=== PATIENT | male | born 1960 | race Caucasian/White ===

== ENCOUNTER 2017-12-26 04:06 | Inpatient (IN) ==
[2017-12-26 04:26] LABS: ABG Base Excess -7.8 mmol/L (-2.4-2.3); ABG HCO3 16.6 mmhg (22.0-26.0); ABG Oxygen Saturation 95 % (90-100); ABG PCO2 25.9 mmhg (35.0-45.0); ABG PH 7.43 mmol/L (7.35-7.45); ABG PO2 72.3 mmhg (80-100); ABG TCO2 17.4 mmhg (23-27)
[2017-12-26 04:28] LABS: Allen's Test Patient Unable
[2017-12-26 04:34] LABS: Basophils # 0.1 K/mm3 (0-0.2); Basophils % 0.2 % (0.1-2.0); Eosinophils # 0.2 K/mm3 (0.0-0.4); Eosinophils % 1.1 % (0.1-12.0); Hemoglobin 11.3 g/dL (14.1-18.0); Lymphocytes # 1.1 K/mm3 (0.7-4.5); Lymphocytes % 5.2 K/mm3 (10-50); Mean Corpuscular HGB Conc 32.3 g/dL (31.8-35.4); Mean Corpuscular Hemoglobin 30.9 pg (27.0-31.2); Mean Corpuscular Volume 95.8 fl (80-94); Mean Platelet Volume 7.2 fl (7.4-10.4); Monocytes # 0.7 K/mm3 (0.1-1.0); Monocytes % 3.1 % (1.7-9.3); Neutrophils # 19.5 K/mm3 (1.8-7.8); Neutrophils % 90.3 % (37.0-80.0); Platelet Count 384 K/mm3 (142-424); Red Blood Count 3.66 M/mm3 (4.60-6.20); Red Cell Distribution Width 14.5 % (11.5-17.5); White Blood Count 21.6 K/mm3 (4.8-10.8)
--- NOTE | 2017-12-26 04:34 | Emergency Department Note ---
ED Disposition Clinical Impression: Pneumonia Disposition: Admitted As Inpatient Condition on Discharge: Fair - Critical Care Critical Care Time: No Attestation: On 12/26/17, the high probability of a clinically significant, sudden or life threatening deterioration of the following system(s) required my full and direct attention, intervention and personal management. The time I documented below is in addition to time spent performing reported procedures but includes the following listed in this critical care notation. Medical Decision Making - Medical Records Medical records reviewed: Yes: I reviewed the patient's medical records. MR Comment: Discussed case with hospitalist radio station manager (Dr. Oswald). Patient admitted to [facility] for farther management and monitoring. Patient remained stable and minimally symptomactic during his ED care. - Jasvir Inquiry Pt receiving controlled substance: No Jasvir was queried for this patient: No Vital Signs: 12/26/17 04:06 12/26/17 05:06 12/26/17 05:30 Temperature 98.1 F Temperature Source Oral Pulse Rate [Right Radial] 121 H 112 H 114 H Respiratory Rate 20 18 18 Blood Pressure [Right Arm] 146/86 H 138/74 139/70 Blood Pressure Mean [Right Arm] 106 95 93 Blood Pressure Source [Right Arm] Automatic Cuff Automatic Cuff Blood Pressure Position [Right Arm] Supine Supine 02 Sat by Pulse Oximetry 96 98 100 Oxygen Delivery Method Nasal Cannula Nasal Cannula Nasal Cannula Oxygen Flow Rate (LPM) 2 2 2 12/26/17 06:00 12/26/17 07:14 12/26/17 07:20 Temperature Temperature Source Pulse Rate [Right Radial] 110 H 95 H 94 H Respiratory Rate 18 22 Blood Pressure [Right Arm] 142/75 H 139/79 111/71 Blood Pressure Mean [Right Arm] 97 99 84 Blood Pressure Source [Right Arm] Automatic Cuff Automatic Cuff Blood Pressure Position [Right Arm] Supine Supine 02 Sat by Pulse Oximetry 99 100 97 Oxygen Delivery Method Nasal Cannula Nasal Cannula Oxygen Flow Rate (LPM) 2 2 - Lab Data Lab results reviewed: Yes: I reviewed the patient's lab results. Lab Results 12/26/17 04:12: WBC 21.6 H*, RBC 3.66 L, Hgb 11.3 L, Hct 35.0 L, MCV 95.8 H, MCH 30.9, MCHC 32.3, RDW 14.5, Plt Count 384, MPV 7.2 L, Neut % (Auto) 90.3 H, Lymph % (Auto) 5.2 L, [place] % (Auto) 3.1, Eos % (Auto) 1.1, Baso % (Auto) 0.2, Neut # (Auto) 19.5 H, Lymph # (Auto) 1.1, [place] # (Auto) 0.7, Eos # (Auto) 0.2, Baso # (Auto) 0.1, Total Counted 100, Neutrophils % (Manual) 95 H, Lymphocytes % (Manual) 5 L, Platelet Estimate Normal, Anisocytosis 1+ 12/26/17 04:12: Sodium 131 L, Potassium 4.8, Chloride 96 L, Carbon Dioxide 22, Anion Gap 17.8 H, BUN 20 H, Creatinine 2.13 H, Estimated Creat Clear 65, Estimated GFR 32 L, Est GFR ( Amer) 39 L, Glucose 163 H, Calcium 8.7, Total Bilirubin 0.4, AST 18, ALT 12, Alkaline Phosphatase 76, Troponin I 0.30 H, Total Protein 7.2, Albumin 2.7 L, Globulin 4.5 H, Albumin/Globulin Ratio 0.6 L 12/26/17 04:12: Lactate 1.7 12/26/17 04:17: Specimen Source Right radial, O2 % 30% nc, ABG pH 7.43, ABG pCO2 25.9 L, ABG pO2 72.3 L, ABG HCO3 16.6 L, ABG Total CO2 17.4 L, ABG O2 Saturation 95, ABG Base Excess -7.8 L, Enrique Test Patient unable 12/26/17 04:17: B-Natriuretic Peptide 60 Result diagrams: 12/26/17 04:12 12/26/17 04:12 Orders (Tests/Meds): ED MEDICATIONS Generic Name Dose Route Start Last Admin Trade Name Freq PRN Reason Stop Dose Admin Albuterol Sulfate puffs 12/26/17 07:23 Proventil-Hfa 90mcg/Puff Inhaler IH 01/25/18 07:22 Q6HP PRN copd Aspirin 81 mg 12/26/17 09:00 Aspirin 81mg Enteric Coated Tablet PO 01/25/18 08:59 DAILY TEJINDER Divalproex Sodium 250 mg 12/26/17 09:00 Depakote Sprinkle 125mg Capsule PO 01/25/18 08:59 BID TEJINDER Ferrous Sulfate 325 mg 12/26/17 09:00 Ferrous Sulfate 325mg Tablet PO 01/25/18 08:59 TID TEJINDER Folic Acid 1 mg 12/26/17 09:00 Folic Acid 1mg Tablet PO 01/25/18 08:59 DAILY TEJINDER Furosemide 40 mg 12/26/17 09:00 Lasix 40mg Tablet PO 01/25/18 08:59 DAILY [facility] Gabapentin 300 mg 12/26/17 09:00 Neurontin 300mg Capsule PO 01/25/18 08:59 TID TEJINDER Cefepime HCl 2 gm/ Sodium 100 mls @ 200 mls/hr 12/26/17 05:15 12/26/17 05:38 Chloride IV 01/09/18 05:14 200 mls/hr Q8H TEJINDER Administration Protocol Vancomycin HCl 1,000 mg/ 250 mls @ 125 mls/hr 12/26/17 07:15 Sodium Chloride IV 01/09/18 07:14 Q24H TEJINDER Levofloxacin/Dextrose 500 mg in 100 mls @ 100 mls/hr 12/26/17 07:15 12/26/17 07:21 Levaquin 500mg/100ml Premix IV 01/09/18 07:14 100 mls/hr Q24H TEJINDER Administration Protocol Meclizine HCl 12.5 mg 12/26/17 07:23 Antivert 12.5mg Tablet PO 01/25/18 07:22 Q8HP PRN dizzy Non-Formulary Medication 15 mg 12/26/17 09:00 Buspirone Hcl [Buspirone Hcl] PO 01/25/18 08:59 DAILY TEJINDER Non-Formulary Medication 40 mg 12/26/17 09:00 Lisinopril [Lisinopril 40mg Tablet] PO 01/25/18 08:59 DAILY TEJINDER Non-Formulary Medication 10 mg 12/26/17 09:00 Loratadine [Claritin] PO 01/25/18 08:59 DAILY TEJINDER Non-Formulary Medication 250 mg 12/26/17 09:00 Naproxen [Naproxen] PO 01/25/18 08:59 BID TEJINDER Non-Formulary Medication 40 mg 12/26/17 09:00 Pantoprazole Sodium [Pantoprazole 20mg Tab] PO 01/25/18 08:59 DAILY TEJINDER Non-Formulary Medication 300 mg 12/26/17 09:00 Quetiapine Fumarate [Quetiapine Fumarate] PO 01/25/18 08:59 DAILY TEJINDER Non-Formulary Medication 40 mg 12/26/17 09:00 Simvastatin [Simvastatin] PO 01/25/18 08:59 DAILY TEJINDER Non-Formulary Medication 1 puff 12/26/17 09:00 Budesonide/Formoterol Fumarate [Symbicort 80-4.5 Mcg Inhaler] INHALATION 01/25/18 08:59 BID TEJINDER Potassium Chloride 20 meq 12/26/17 09:00 Micro-K 10meq Capsule PO 01/25/18 08:59 DAILY TEJINDER Sertraline HCl 100 mg 12/26/17 09:00 Zoloft 100mg Tablet PO 01/25/18 08:59 DAILY TEJINDER Sodium Chloride 3 ml 12/26/17 04:17 Sodium Chloride 3% 15ml Neb IH 01/25/18 04:16 ONCE PRN INDUCE SPUTUM COLLECTION Discontinued Medications Generic Name Dose Route Start Last Admin Trade Name Freq PRN Reason Stop Dose Admin Sodium Chloride 500 mls @ 999 mls/hr 12/26/17 05:15 12/26/17 05:38 Sod Chlor 0.9% 1000ml Bag IV 12/26/17 05:45 999 mls/hr .Q31M TEJINDER Administration Methylprednisolone Sodium Succinate 125 mg 12/26/17 04:18 12/26/17 04:19 Solu-Medrol 125mg/2ml Vial IV 12/26/17 04:19 125 mg ONCE ONE Administration Miscellaneous 1 unit 12/26/17 07:23 Aerochamber/Optihaler MC 12/26/17 07:24 ONCE ONE ORDERS Category Date Time Status CT chest wo con Stat Cat Scan 12/26/17 05:57 Taken XR chest portable Stat Exams 12/26/17 04:17 Taken Troponin I Stat Lab 12/26/17 07:05 Ordered Blood Culture Stat Micro 12/26/17 04:17 Ordered Sputum Culture & Gram Stain Stat Micro 12/26/17 04:17 Ordered - ECG Data Tracing #1 I reviewed this ECG and interpreted as documented below: Normal Sinus Rhythm: Yes Arrhythmias present: sinus tach Resp/SOB HPI - General Chief Complaint: Weakness Stated Complaint: shortness of breath Time Seen by Provider: 12/26/17 04:08 Mode of Arrival: EMS Limitations: Physical Limitations Description of Symptoms (Recalled from ER Triage Doc. by RN): generalized weakness, shortness of breath, fall this pm when he was trying to stand up patient states he "just went down." - History of Present Illness Comes to the ED with complain of worsening dyspnea and wheezing. Denies fever, chills, chest pain, nausea, vomiting, diaphoresis. MD Complaint: shortness of breath, cough Onset (ago): day(s) Severity: moderate Consistency/Duration: constant Relieving factors: nothing Exacerbating factors: nothing Known history of: COPD Associated symptoms: denies other symptoms - Related Data Home Medications Medication Instructions Recorded Confirmed Albuterol Sulfate [Albuterol HFA 1 puff INHALATION Q6HP PRN 12/26/17 12/26/17 Inhaler] Aspirin [Aspir-Low] 81 mg PO DAILY 12/26/17 12/26/17 Budesonide/Formoterol Fumarate 1 puff INHALATION BID 12/26/17 12/26/17 [Symbicort 80-4.5 Mcg Inhaler] Buspirone HCl 15 mg PO DAILY 12/26/17 12/26/17 Divalproex Sodium 250 mg PO BID 12/26/17 12/26/17 Ferrous Sulfate 325 mg PO TID 12/26/17 12/26/17 Fluticasone Propionate [Flonase 1 - 2 spray IN DAILY 12/26/17 12/26/17 50mcg nasal spray 16gm] Folic Acid [Folic Acid 1mg tablet] 1 mg PO DAILY 12/26/17 12/26/17 Furosemide [Furosemide 40MG tAB] 40 mg PO DAILY 12/26/17 12/26/17 Gabapentin [Gabapentin 300mg Cap] 300 mg PO TID 12/26/17 12/26/17 Lisinopril [Lisinopril 40mg Tablet] 40 mg PO DAILY 12/26/17 12/26/17 Loratadine [Claritin] 10 mg PO DAILY 12/26/17 12/26/17 Meclizine HCl [Meclizine 12.5mg 12.5 mg PO Q8HP PRN 12/26/17 12/26/17 Tab] Naproxen 250 mg PO BID 12/26/17 12/26/17 Pantoprazole Sodium [Pantoprazole 40 mg PO DAILY 12/26/17 12/26/17 20mg Tab] Potassium Chloride [Micro-K 10mEq 20 meq PO DAILY 12/26/17 12/26/17 cap] Quetiapine Fumarate 300 mg PO DAILY 12/26/17 12/26/17 Sertraline HCl [Zoloft 100mg 100 mg PO DAILY 12/26/17 12/26/17 tablet] Simvastatin 40 mg PO DAILY 12/26/17 12/26/17 Allergies Allergy/AdvReac Type Severity Reaction Status Date / Time Penicillins [PENICILLINS] Allergy Unknown Verified 12/26/17 04:12 [facility] History I have reviewed the patient's past medical history: Yes Medical History: Reports:: Diabetes Mellitus Type 2, MRSA Denies:: Cancer, Diabetes Mellitus Type 1 Amputation: No - Social History Smoking Status: Current every day smoker Alcohol Intake: never - Psychiatric History Expresses thoughts of harming self/others: None Suicide Plan Description: No Plan ROS Obtained: Yes All systems reviewed & no additional complaints Physical Exam - General General appearance: alert, in no apparent distress - Head Head exam: atraumatic, normocephalic, normal inspection - Eye Eye exam: Present: normal appearance, PERRL, EOMI - ENT ENT exam: Present: normal exam, normal oropharynx, mucous membranes moist, TM's normal bilaterally, normal external ear exam - Neck Neck exam: Present: normal inspection, full ROM, trachea midline. Absent: m eningismus, lymphadenopathy - Chest Chest inspection: Present: normal inspection, symmetric chest wall rise. Absent: tenderness - Respiratory Respiratory exam: Present: wheezes. Absent: respiratory distress, accessory mu scle use - Cardiovascular Cardiovascular exam: Present: regular rate, normal rhythm. Absent: JVD - Abdominal Exam Abdominal exam: Present: soft, normal bowel sounds. Absent: distention, tenderness, guarding - Extremities Exam Extremities exam: Present: normal inspection, full ROM, normal capillary refill. Absent: calf tenderness - Back Exam Back exam: Present: normal inspection. Absent: tenderness - Neurological Exam Neurological exam: Present: alert, oriented X3 - Psychiatric Psychiatric exam: Present: normal affect, normal mood - Skin Skin exam: Present: warm, dry, intact, normal color - Lymphatic Lymphatic Findings: no adenopathy
[2017-12-26 04:47] LABS: Potassium 4.8 mmoL/L (3.5-5.1)
[2017-12-26 04:51] LABS: Anion Gap 17.8 mEq/L (5-15); Bilirubin,Total 0.4 mg/dL (0.2-1.0); Calcium 8.7 mg/dL (8.5-10.1)
[2017-12-26 04:52] LABS: Albumin Level 2.7 gm/dL (3.4-5.0); Albumin/Globulin Ratio 0.6 (1.1-1.8); Globulin 4.5 gm/dl (1.3-3.2); Total Protein,Serum 7.2 gm/dL (6.4-8.2)
[2017-12-26 05:52] LABS: Anisocytosis 1+; Lymphocytes % 5 % (10-50); Neutrophils % 95 % (42-76); Total Cells Counted 100
--- NOTE | 2017-12-26 08:00 | History & Physical Report ---
*Admission Date: 12/26/17 *Chief complaint: Cough with shortness of breath *History of present illness: 57-year-old male with COPD, diabetes presented to the emergency department via EMS with 2 days of cough with chills and brown sputum production along with shortness of breath. Patient had significant wheezing in route and was given aerosols. He was tachycardic by the time he presented to the emergency department. Workup continued and patient was diagnosed with multi lobar pneumonia. He has been admitted admitted on broad-spectrum antibiotics, aerosols and intravenous steroids. At the time of interview patient has been in the facility now for about 3 hours and tells me he is starting to feel better. He denies fevers at home. He lives in [place]. He initially denied previous hospitalizations for respiratory illnesses but then later tells me he has been admitted to hospital for pneumonia before. [facility] History I have reviewed the patient's past medical history: Yes Medical History: Reports:: Chronic Obstructive Pulmonary Disease (COPD), Diabetes Mellitus Type 2, MRSA Denies:: Cancer, Diabetes Mellitus Type 1 Amputation: No - *Social History Smoking Status: Current every day smoker Alcohol Intake: never - Psychiatric History Expresses thoughts of harming self/others: None Suicide Plan Description: No Plan Review of Systems - Review of Systems Review of systems:: pertinent systems reviewed and negative unless documented below - Constitutional Reports body ache(s), Reports chills, Reports excessive sweating - *Cardiovascular Denies chest pain, Denies chest pain at rest - *Respiratory Reports change in phlegm color, Reports chest congestion, Reports cough, Reports shortness of breath, Reports shortness of breath with activity, Reports excessive phlegm production - *Gastrointestinal Denies abdominal pain, Denies belching Meds Home Medications Medication Instructions Recorded Confirmed Type Albuterol Sulfate [Albuterol HFA 1 puff INHALATION Q6HP PRN 12/26/17 12/26/17 History Inhaler] Aspirin [Aspir-Low] 81 mg PO DAILY 12/26/17 12/26/17 History Budesonide/Formoterol Fumarate 1 puff INHALATION BID 12/26/17 12/26/17 History [Symbicort 80-4.5 Mcg Inhaler] Buspirone HCl 15 mg PO DAILY 12/26/17 12/26/17 History Divalproex Sodium 250 mg PO BID 12/26/17 12/26/17 History Ferrous Sulfate 325 mg PO TID 12/26/17 12/26/17 History Fluticasone Propionate [Flonase 1 - 2 spray IN DAILY 12/26/17 12/26/17 History 50mcg nasal spray 16gm] Folic Acid [Folic Acid 1mg tablet] 1 mg PO DAILY 12/26/17 12/26/17 History Furosemide [Furosemide 40MG tAB] 40 mg PO DAILY 12/26/17 12/26/17 History Gabapentin [Gabapentin 300mg Cap] 300 mg PO TID 12/26/17 12/26/17 History Lisinopril [Lisinopril 40mg Tablet] 40 mg PO DAILY 12/26/17 12/26/17 History Loratadine [Claritin] 10 mg PO DAILY 12/26/17 12/26/17 History Meclizine HCl [Meclizine 12.5mg 12.5 mg PO Q8HP PRN 12/26/17 12/26/17 History Tab] Naproxen 250 mg PO BID 12/26/17 12/26/17 History Pantoprazole Sodium [Pantoprazole 40 mg PO DAILY 12/26/17 12/26/17 History 20mg Tab] Potassium Chloride [Micro-K 10mEq 20 meq PO DAILY 12/26/17 12/26/17 History cap] Quetiapine Fumarate 300 mg PO DAILY 12/26/17 12/26/17 History Sertraline HCl [Zoloft 100mg 100 mg PO DAILY 12/26/17 12/26/17 History tablet] Simvastatin 40 mg PO DAILY 12/26/17 12/26/17 History Allergies Allergy/AdvReac Type Severity Reaction Status Date / Time Penicillins [PENICILLINS] Allergy Unknown Verified 12/26/17 04:12 Exam Vital signs and Labs for Last 24 Hours: Temp Pulse Resp BP Pulse Ox 98.1 F 94 H 22 111/71 97 12/26/17 04:06 12/26/17 07:20 12/26/17 07:20 12/26/17 07:20 12/26/17 07:20 Laboratory Results - last 24 hr 12/26/17 04:12: WBC 21.6 H*, RBC 3.66 L, Hgb 11.3 L, Hct 35.0 L, MCV 95.8 H, MCH 30.9, MCHC 32.3, RDW 14.5, Plt Count 384, MPV 7.2 L, Neut % (Auto) 90.3 H, Lymph % (Auto) 5.2 L, [place] % (Auto) 3.1, Eos % (Auto) 1.1, Baso % (Auto) 0.2, Neut # (Auto) 19.5 H, Lymph # (Auto) 1.1, [place] # (Auto) 0.7, Eos # (Auto) 0.2, Baso # (Auto) 0.1, Total Counted 100, Neutrophils % (Manual) 95 H, Lymphocytes % (Manual) 5 L, Platelet Estimate Normal, Anisocytosis 1+ 12/26/17 04:12: Sodium 131 L, Potassium 4.8, Chloride 96 L, Carbon Dioxide 22, Anion Gap 17.8 H, BUN 20 H, Creatinine 2.13 H, Estimated Creat Clear 65, Estimated GFR 32 L, Est GFR ( Amer) 39 L, Glucose 163 H, Calcium 8.7, Total Bilirubin 0.4, AST 18, ALT 12, Alkaline Phosphatase 76, Troponin I 0.30 H, Total Protein 7.2, Albumin 2.7 L, Globulin 4.5 H, Albumin/Globulin Ratio 0.6 L 12/26/17 04:12: Lactate 1.7 12/26/17 04:17: Specimen Source Right radial, O2 % 30% nc, ABG pH 7.43, ABG pCO2 25.9 L, ABG pO2 72.3 L, ABG HCO3 16.6 L, ABG Total CO2 17.4 L, ABG O2 Saturation 95, ABG Base Excess -7.8 L, Enrique Test Patient unable 12/26/17 04:17: B-Natriuretic Peptide 60 I & O for Last 24 hours: Intake & Output 12/23/17 12/24/17 12/25/17 12/26/17 11:59 11:59 11:59 11:59 Weight 270 lb Narrative: Patient is diaphoretic and mildly tachypneic. Pupils are reactive to light. Oropharynx moist and clear. Neck is without lymphadenopathy. Lungs have diffus e expiratory wheezes as well as bilateral rhonchi. Heart rate is tachycardic. Abdomen is obese and soft. Patient has active range of motion in all extremities Assessment and Plan (1) Pneumonia Current visit: Yes Status: Acute Category: Medical Code(s): J18.9 - Pn eumonia, unspecified organism (2) COPD exacerbation Current visit: Yes Status: Acute Category: Medical Code(s): J44.1 - Chronic obstructive pulmonary disease with (acute) exacerbation (3) Morbid obesity Current visit: Yes Status: Acute Category: Medical Code(s): E66.01 - Morbid (severe) obesity due to excess calories (4) Diabetes mellitus Current visit: Yes Status: Acute Category: Medical Code(s): E11.9 - Type 2 diabetes mellitus without complications (5) History of MRSA infection Current visit: Yes Status: Acute Category: Medical Code(s): Z86.14 - Personal history of Methicillin resistant Staphylococcus aureus infection (6) Elevated troponin Current visit: Yes Status: Acute Category: Medical Code(s): R74.8 - Abnormal levels of other serum enzymes - Assessment and plan all Dx Assessment and Plan for all problems:: 1. Broad-spectrum coverage (Levaquin and cefepime) including coverage for MRSA with vancomycin IV Medrol and aerosols for COPD exacerbation 2. Check echocardiogram and repeat troponin later today.
--- NOTE | 2017-12-26 09:51 | Pharmacy Consult Notes ---
- Pharmacy Consult Date: 12/26/17 Time: 09:50 Referring provider: DR. PETERSEN Reason for Consult:: VANCOMYCIN DOSING Allergies and ADEs:: Allergies Allergy/AdvReac Type Severity Reaction Status Date / Time Penicillins [PENICILLINS] Allergy Unknown Verified 12/26/17 04:12 Home Medications:: Home Medications Medication Instructions Recorded Confirmed Type Albuterol Sulfate [Albuterol HFA 1 puff INHALATION Q6HP PRN 12/26/17 12/26/17 History Inhaler] Aspirin [Aspir-Low] 81 mg PO DAILY 12/26/17 12/26/17 History Budesonide/Formoterol Fumarate 1 puff INHALATION BID 12/26/17 12/26/17 History [Symbicort 80-4.5 Mcg Inhaler] Buspirone HCl 15 mg PO DAILY 12/26/17 12/26/17 History Divalproex Sodium 250 mg PO BID 12/26/17 12/26/17 History Ferrous Sulfate 325 mg PO TID 12/26/17 12/26/17 History Fluticasone Propionate [Flonase 1 - 2 spray IN DAILY 12/26/17 12/26/17 History 50mcg nasal spray 16gm] Folic Acid [Folic Acid 1mg tablet] 1 mg PO DAILY 12/26/17 12/26/17 History Furosemide [Furosemide 40MG tAB] 40 mg PO DAILY 12/26/17 12/26/17 History Gabapentin [Gabapentin 300mg Cap] 300 mg PO TID 12/26/17 12/26/17 History Lisinopril [Lisinopril 40mg Tablet] 40 mg PO DAILY 12/26/17 12/26/17 History Loratadine [Claritin] 10 mg PO DAILY 12/26/17 12/26/17 History Meclizine HCl [Meclizine 12.5mg 12.5 mg PO Q8HP PRN 12/26/17 12/26/17 History Tab] Montelukast Sodium [Montelukast 10 mg PO HS 12/26/17 12/26/17 History 10mg Tab] Naproxen 250 mg PO BID 12/26/17 12/26/17 History Nitroglycerin [Nitrostat 0.4mg SL 0.4 mg SL [id number] PRN 12/26/17 12/26/17 History Tablet] Pantoprazole Sodium [Pantoprazole 20 mg PO DAILY 12/26/17 12/26/17 History 20mg Tab] Potassium Chloride [Micro-K 10mEq 20 meq PO DAILY 12/26/17 12/26/17 History cap] Quetiapine Fumarate 300 mg PO HS 12/26/17 12/26/17 History Sertraline HCl [Zoloft 100mg 100 mg PO DAILY 12/26/17 12/26/17 History tablet] Simvastatin 40 mg PO HS 12/26/17 12/26/17 History Height: 1.83 m Weight: 129.954 kg Laboratory Results:: Laboratory Results - last 24 hr 12/26/17 04:12: WBC 21.6 H*, RBC 3.66 L, Hgb 11.3 L, Hct 35.0 L, MCV 95.8 H, MCH 30.9, MCHC 32.3, RDW 14.5, Plt Count 384, MPV 7.2 L, Neut % (Auto) 90.3 H, Lymph % (Auto) 5.2 L, [place] % (Auto) 3.1, Eos % (Auto) 1.1, Baso % (Auto) 0.2, Neut # (Auto) 19.5 H, Lymph # (Auto) 1.1, [place] # (Auto) 0.7, Eos # (Auto) 0.2, Baso # (Auto) 0.1, Total Counted 100, Neutrophils % (Manual) 95 H, Lymphocytes % (Manual) 5 L, Platelet Estimate Normal, Anisocytosis 1+ 12/26/17 04:12: Sodium 131 L, Potassium 4.8, Chloride 96 L, Carbon Dioxide 22, Anion Gap 17.8 H, BUN 20 H, Creatinine 2.13 H, Estimated Creat Clear 65, Estimated GFR 32 L, Est GFR ( Amer) 39 L, Glucose 163 H, Calcium 8.7, Total Bilirubin 0.4, AST 18, ALT 12, Alkaline Phosphatase 76, Troponin I 0.30 H, Total Protein 7.2, Albumin 2.7 L, Globulin 4.5 H, Albumin/Globulin Ratio 0.6 L 12/26/17 04:12: Lactate 1.7 12/26/17 04:17: Specimen Source Right radial, O2 % 30% nc, ABG pH 7.43, ABG pCO2 25.9 L, ABG pO2 72.3 L, ABG HCO3 16.6 L, ABG Total CO2 17.4 L, ABG O2 Saturation 95, ABG Base Excess -7.8 L, Enrique Test Patient unable 12/26/17 04:17: B-Natriuretic Peptide 60 12/26/17 06:20: Troponin I 0.26 H Medical History: Reports:: Chronic Obstructive Pulmonary Disease (COPD), Diabetes Mellitus Type 2, Hypertension, MRSA Denies:: Cancer, Diabetes Mellitus Type 1 Assessment and Plan (1) Pneumonia Current visit: Yes Status: Acute Category: Medical Code(s): J18.9 - Pneumonia, unspecified organism (2) COPD exacerbation Current visit: Yes Status: Acute Category: Medical Code(s): J44.1 - Chronic obstructive pulmonary disease with (acute) exacerbation (3) Morbid obesity Current visit: Yes Status: Acute Category: Medical Code(s): E66.01 - Morbid (severe) obesity due to excess calories (4) Diabetes mellitus Current visit: Yes Status: Acute Category: Medical Code(s): E11.9 - Type 2 diabetes mellitus without complications (5) History of MRSA infection Current visit: Yes Status: Acute Category: Medical Code(s): Z86.14 - Personal history of Methicillin resistant Staphylococcus aureus infection (6) Elevated troponin Current visit: Yes Status: Acute Category: Medical Code(s): R74.8 - Abnormal levels of other serum enzymes - Assessment and plan all Dx Assessment and Plan for all problems:: BASED ON PATIENT'S FACTORS, RECOMMEND STARTING WITH VANCOMYCIN 2250 MG Q24H AT THIS TIME. WILL WATCH CAUTIOUSLY DUE TO PATIENT'S RENAL FUNCTION. WILL OBTAIN TROUGH LEVEL PRIOR TO 3RD DOSE DUE TO THIS. PHARMACY WILL FOLLOW DAILY AND ADJUST APPROPRIATE. RAÚL GRANT, MIAHD
--- NOTE | 2017-12-26 10:21 | Pharmacy Consult Notes ---
[facility] Pharmacy VTE Monitoring - Patient Demographics Admission date: 12/26/17 Report Date: 12/26/17 Time: 10:21 Allergies/Adverse Reactions: Patient Allergies Penicillins [PENICILLINS] Allergy (Unknown, Verified 12/26/17 04:12) Height: 1.83 m Weight: 129.954 kg Patient Problems: Current Active Problems Pneumonia (Acute) COPD exacerbation (Acute) Morbid obesity (Acute) Diabetes mellitus (Acute) History of MRSA infection (Acute) Elevated troponin (Acute) - VTE Risk Labs: VTE Related Lab Results Hgb 11.3 g/dL (14.1-18.0) L 12/26/17 04:12 Hct 35.0 % (42.0-52.0) L 12/26/17 04:12 Plt Count 384 K/mm3 (142-424) 12/26/17 04:12 BUN 20 mg/dL (7-18) H 12/26/17 04:12 Creatinine 2.13 mg/dL (0.70-1.30) H 12/26/17 04:12 Estimated Creat Clear 65 mL/min (0-300) 12/26/17 04:12 Was VTE Risk Assessment Performed: Yes VTE Score: 4 VTE Risk Level: Low Risk Clinical Trial Participant: No - Prophylaxis VTE Prophylaxis Ordered?: Yes Types of VTE Prophylaxis: TEDS Knee High
--- NOTE | 2017-12-26 13:15 | Cardiology Report ---
PROCEDURE: 2-D M-mode and color Doppler study INDICATIONS FOR THE TEST: Chest pain COPD Heart Murmur Tobacco Smoking Palpitations Fatigue Syncope Edema Hypertension Diabetes Mellitus Rheumatic Fever SOB PATRICIO Obesity Hyperlipidemia Family History HD Additional History PATIENT INFORMATION HEIGHT: 71 WEIGHT:270 GENDER: Male B/P:111/71 2-D/M-MODE INTERPRETATION: 2-D MEASUREMENTS OBSERVED VALUES IN CMS Right Ventricular Dimension (RVDd) 2.5 Interventricular Septum (Thickness)(IVsd) 1.0 Left Ventricular Internal Dimensions(LVIDd) 5.1 Left Ventricular Posterior Wall (Thickness)(LVPWd) 1.0 Aortic Root 3.1 Aortic Cusp Separation 2.1 Left Atrial Dimensions (LAD) 4.4 2D 1. Left atrium is mildly enlarged, left ventricle is normal size, mild concentric left ventricular hypertrophy, visually estimated ejection fraction of 55% with no regional wall motion abnormality. 2. The right atrium and right ventricle are normal size and contractility. 3. The aortic valve is minimally thickened and fibrosed. 4. The mitral and tricuspid valve are grossly normal. 5. Pulmonic valve is poorly visualized. 6. No significant pericardial effusion noted. DOPPLER INTERROGATION: Doppler interrogation of the aortic, mitral and tricuspid valvular presence of mild mitral and tricuspid regurgitation, tricuspid regurgitation jet velocity is inadequate for calculation of the right ventricular systolic pressure, Doppler evidence of impaired LV relaxation seen, tissue Doppler is suboptimal for calculation of left atrial pressure. CONCLUSION: 1. Mildly enlarged left atrium, normal left ventricular size, mild concentric left ventricular hypertrophy, visually estimated ejection fraction of 55% with no regional wall motion abnormality. Doppler evidence of impaired LV relaxation seen, tissue Doppler is suboptimal for calculation of the left atrial pressure. 2. Mild mitral and tricuspid regurgitation 3. No significant pericardial effusion noted.
[2017-12-27 07:15] LABS: Basophils % 0.1 % (0.1-2.0); Hematocrit 35.2 % (42.0-52.0); Hemoglobin 11.4 g/dL (14.1-18.0); Lymphocytes # 0.9 K/mm3 (0.7-4.5); Lymphocytes % 2.5 K/mm3 (10-50); Mean Corpuscular HGB Conc 32.5 g/dL (31.8-35.4); Mean Corpuscular Hemoglobin 31.5 pg (27.0-31.2); Mean Corpuscular Volume 96.9 fl (80-94); Mean Platelet Volume 7.4 fl (7.4-10.4); Monocytes # 0.9 K/mm3 (0.1-1.0); Monocytes % 2.4 % (1.7-9.3); Neutrophils # 34.2 K/mm3 (1.8-7.8); Platelet Count 420 K/mm3 (142-424); Red Blood Count 3.63 M/mm3 (4.60-6.20); Red Cell Distribution Width 14.4 % (11.5-17.5)
[2017-12-27 07:22] LABS: Anion Gap 16.8 mEq/L (5-15); Calcium 8.6 mg/dL (8.5-10.1); Potassium 4.8 mmoL/L (3.5-5.1)
[2017-12-27 07:50] LABS: Anisocytosis 1+; Lymphocytes % 1 % (10-50); Neutrophils % 99 % (42-76); Total Cells Counted 100
--- NOTE | 2017-12-27 07:52 | Progress Note ---
Internal Medicine - PN: Subj *Date: 12/27/17 *Time: 07:51 Interval history: Patient slept well overnight, no concerns from nursing staff. This morning patient is lying in bed comfortably sleeping. Does not really wish to arouse and talk with me this morning. Wearing oxygen. Exam Vital signs and Labs for Last 24 Hours: Temp Pulse Resp BP Pulse Ox 97.5 F L 74 22 146/64 H 96 12/27/17 07:49 12/27/17 07:49 12/27/17 07:49 12/27/17 07:49 12/27/17 07:49 Laboratory Results - last 24 hr 12/26/17 06:20: Troponin I 0.26 H 12/27/17 06:06: POC Glucose 172 H 12/27/17 06:25: WBC 36.0 H* D, RBC 3.63 L, Hgb 11.4 L, Hct 35.2 L, MCV 96.9 H, MCH 31.5 H, MCHC 32.5, RDW 14.4, Plt Count 420, MPV 7.4, Neut % (Auto) 95.0 H, Lymph % (Auto) 2.5 L, [place] % (Auto) 2.4, Eos % (Auto) 0.0 L, Baso % (Auto) 0.1, Neut # (Auto) 34.2 H, Lymph # (Auto) 0.9, [place] # (Auto) 0.9, Eos # (Auto) 0.0, Baso # (Auto) 0.0, Total Counted 100, Neutrophils % (Manual) 99 H, Lymphocytes % (Manual) 1 L, Platelet Estimate Normal, Anisocytosis 1+ 12/27/17 06:25: Sodium 131 L, Potassium 4.8, Chloride 100, Carbon Dioxide 19 L, Anion Gap 16.8 H, BUN 36 H D, Creatinine 1.99 H, Estimated Creat Clear 74, Estimated GFR 35 L, Est GFR ( Amer) 42 L, Glucose 172 H, Calcium 8.6 12/27/17 06:25: Hemoglobin A1c 6.8 I & O for Last 24 hours: Intake & Output 12/24/17 12/25/17 12/26/17 12/27/17 11:59 11:59 11:59 11:59 Intake Total 1320 / 1320 Output Total 1000 / 1000 Balance 320 / 320 Weight 286 lb 8 oz Narrative: Patient is obese, disheveled, appears older than his stated age. No extra work of breathing noted. Appears comfortable with no tachypnea, no cyanosis on 2 L nasal cannula. Lungs have some rhonchi in all lung patel, no significant crackles or evidence of effusions on physical exam. Heart rate regular. Distal perfusion is good. Oropharynx moist. No JVD but difficult exam. Patient is able to move all of his extremities. Abdomen soft. Assessment and Plan (1) Pneumonia Current visit: Yes Status: Acute Category: Medical Code(s): J18.9 - Pneumonia, unspecified organism Agree with broad-spectrum antibiotics and steroids given his diffuse alveolar infiltrates and COPD exacerbation. Check viral PCR testing. Follow labs closely. Patient's clinical picture is encouraging given his abnormal x-ray. (2) COPD exacerbation Current visit: Yes Status: Acute Category: Medical Code(s): J44.1 - Chronic obstructive pulmonary disease with (acute) exacerbation (3) Morbid obesity Current visit: Yes Status: Acute Category: Medical Code(s): E66.01 - Morbid (severe) obesity due to excess calories (4) Diabetes mellitus Current visit: Yes Status: Acute Category: Medical Code(s): E11.9 - Type 2 diabetes mellitus without complications (5) History of MRSA infection Current visit: Yes Status: Acute Category: Medical Code(s): Z86.14 - Personal history of Methicillin resistant Staphylococcus aureus infection (6) Elevated troponin Current visit: Yes Status: Acute Category: Medical Code(s): R74.8 - Abnormal levels of other serum enzymes
[2017-12-27 08:24] LABS: Coronavirus 229E Not Detected (NotDetected); Coronavirus NL63 Not Detected (NotDetected); Coronavirus OC43 Not Detected (NotDetected); Coronovirus HKU1,PCR Not Detected (NotDetected)
[2017-12-28 06:45] LABS: Hematocrit 33.1 % (42.0-52.0); Hemoglobin 10.8 g/dL (14.1-18.0); Lymphocytes # 0.9 K/mm3 (0.7-4.5); Lymphocytes % 3.4 K/mm3 (10-50); Mean Corpuscular HGB Conc 32.6 g/dL (31.8-35.4); Mean Corpuscular Hemoglobin 31.2 pg (27.0-31.2); Mean Corpuscular Volume 95.9 fl (80-94); Mean Platelet Volume 7.3 fl (7.4-10.4); Monocytes # 0.7 K/mm3 (0.1-1.0); Monocytes % 2.8 % (1.7-9.3); Neutrophils # 24.7 K/mm3 (1.8-7.8); Neutrophils % 93.7 % (37.0-80.0); Platelet Count 412 K/mm3 (142-424); Red Blood Count 3.45 M/mm3 (4.60-6.20); Red Cell Distribution Width 14.3 % (11.5-17.5)
[2017-12-28 06:48] LABS: White Blood Count 26.4 K/mm3 (4.8-10.8)
[2017-12-28 07:05] LABS: Lymphocytes % 6 % (10-50); Monocytes % 3 % (2-9); Neutrophils % 82 % (42-76); Total Cells Counted 100
[2017-12-28 07:06] LABS: RBC Morphology Normal
[2017-12-28 07:09] LABS: Albumin Level 2.3 gm/dL (3.4-5.0); Albumin/Globulin Ratio 0.5 (1.1-1.8); Anion Gap 17.1 mEq/L (5-15); Bilirubin,Total 0.3 mg/dL (0.2-1.0); Calcium 8.6 mg/dL (8.5-10.1); Globulin 4.3 gm/dl (1.3-3.2); Potassium 5.1 mmoL/L (3.5-5.1); Total Protein,Serum 6.6 gm/dL (6.4-8.2)
--- NOTE | 2017-12-28 08:45 | Discharge Summary ---
General - General Admission date:: 12/26/17 Discharge date: 12/28/17 HPI HPI: 57-year-old male with COPD, diabetes presented to the emergency department via EMS with 2 days of cough with chills and brown sputum production along with shortness of breath. Patient had significant wheezing in route and was given aerosols. He was tachycardic by the time he presented to the emergency department. Workup continued and patient was diagnosed with multi lobar pneumonia. He has been admitted admitted on broad-spectrum antibiotics, aerosols and intravenous steroids. At the time of interview patient has been in the facility now for about 3 hours and tells me he is starting to feel better. He denies fevers at home. He lives in [place]. He initially denied previous hospitalizations for respiratory illnesses but then later tells me he has been admitted to hospital for pneumonia before. Hospital Course Hospital Course: Patient was admitted to the hospital, placed on broad-spectrum antibiotics for community-acquired pneumonia and improved over the next couple of days. He continued to use oxygen, but his oxygen requirement improved. Laboratory studies also improved-patient had leukocytosis the time of admission, felt to be from his infection, and then persisted because of steroid use. I recommend that he receive another CBC to make sure that his white count has normalized as an outpatient. Blood cultures were negative at the time of discharge. This morning he was doing well. Requested to go home, had no further oxygen requirement. He will be discharged home on antibiotics and follow-up with his regular physician as noted below. Objective Vital signs: Temp Pulse Resp BP Pulse Ox 98.0 F 70 20 122/58 L 97 12/28/17 04:00 12/28/17 04:00 12/28/17 04:00 12/28/17 04:00 12/28/17 07:44 Narrative: Alert, pleasant. Oriented x3. Oropharynx is moist, clear. Poor dentition but otherwise normal ENT exam Lungs have minimal rhonchi but these clear with a deep breath and a cough, much better air entry than yesterday's exam. Heart rate regular. No murmurs. Abdomen soft and nontender. No edema or clubbing. Moves all extremities well, no cranial nerve deficits. Results Labs on day of discharge: Labs from last 24 hours 12/28/17 12/28/17 12/28/17 06:20 06:20 06:12 WBC 26.4 H* D RBC 3.45 L Hgb 10.8 L Hct 33.1 L MCV 95.9 H MCH 31.2 MCHC 32.6 RDW 14.3 Plt Count 412 MPV 7.3 L Neut % (Auto) 93.7 H Lymph % (Auto) 3.4 L [place] % (Auto) 2.8 Eos % (Auto) 0.0 L Baso % (Auto) 0.0 L Neut # (Auto) 24.7 H Lymph # (Auto) 0.9 [place] # (Auto) 0.7 Eos # (Auto) 0.0 Baso # (Auto) 0.0 Total Counted 100 Neutrophils % (Manual) 82 H Band Neutrophils % 9.0 H Lymphocytes % (Manual) 6 L Monocytes % (Manual) 3 Platelet Estimate Normal RBC Morphology Normal Sodium 132 L Potassium 5.1 Chloride 101 Carbon Dioxide 19 L Anion Gap 17.1 H BUN 48 H D Creatinine 1.92 H Estimated Creat Clear 77 Estimated GFR 36 L Est GFR ( Amer) 44 L Glucose 183 H POC Glucose 182 H Calcium 8.6 Total Bilirubin 0.3 AST 9 L D ALT 12 Alkaline Phosphatase 66 Total Protein 6.6 Albumin 2.3 L Globulin 4.3 H Albumin/Globulin Ratio 0.5 L Chlamy pneumoniae PCR Adenovirus (PCR) B.parapertussis DNA PCR Coronavirus OC43 (PCR) Coronavirus HKU1 (PCR) Coronavirus 229E (PCR) Coronavirus NL63 (PCR) Human Metapneumovir PCR Influenza A (H1) PCR Influ A (H1N1/09) PCR Influenza A (H3) PCR Influenza Type A (PCR) Influenza Type B (PCR) M. pneumoniae (PCR) Parainfluenza 1 (PCR) Parainfluenza 2 (PCR) Parainfluenza 3 (PCR) Parainfluenza 4 (PCR) RSV (PCR) Entero/Rhino (PCR) 12/27/17 12/27/17 12/27/17 20:47 16:06 08:12 WBC RBC Hgb Hct MCV MCH MCHC RDW Plt Count MPV Neut % (Auto) Lymph % (Auto) [place] % (Auto) Eos % (Auto) Baso % (Auto) Neut # (Auto) Lymph # (Auto) [place] # (Auto) Eos # (Auto) Baso # (Auto) Total Counted Neutrophils % (Manual) Band Neutrophils % Lymphocytes % (Manual) Monocytes % (Manual) Platelet Estimate RBC Morphology Sodium Potassium Chloride Carbon Dioxide Anion Gap BUN Creatinine Estimated Creat Clear Estimated GFR Est GFR ( Amer) Glucose POC Glucose 163 H 175 H Calcium Total Bilirubin AST ALT Alkaline Phosphatase Total Protein Albumin Globulin Albumin/Globulin Ratio Chlamy pneumoniae PCR Not detected Adenovirus (PCR) Not detected B.parapertussis DNA PCR Not detected Coronavirus OC43 (PCR) Not detected Coronavirus HKU1 (PCR) Not detected Coronavirus 229E (PCR) Not detected Coronavirus NL63 (PCR) Not detected Human Metapneumovir PCR Not detected Influenza A (H1) PCR Not detected Influ A (H1N1/09) PCR Not detected Influenza A (H3) PCR Not detected Influenza Type A (PCR) Not detected Influenza Type B (PCR) Not detected M. pneumoniae (PCR) Not detected Parainfluenza 1 (PCR) Not detected Parainfluenza 2 (PCR) Not detected Parainfluenza 3 (PCR) Not detected Parainfluenza 4 (PCR) Not detected RSV (PCR) Not detected Entero/Rhino (PCR) Not detected Preliminary micro results at discharge 12/26/17 04:17 Blood Culture - Preliminary Blood NO GROWTH AFTER 48 HOURS 12/26/17 04:17 Blood Culture - Preliminary Blood NO GROWTH AFTER 48 HOURS DS: Diagnosis - Discharge Diagnosis (1) Pneumonia Status: Acute (2) COPD exacerbation Status: Acute (3) Morbid obesity Status: Chronic (4) Diabetes mellitus Status: Chronic (5) History of MRSA infection Status: Chronic (6) Elevated troponin Status: Ruled-out Discharge Plan - Patient Discharge Instructions ACTIVITY: Continue current activity DIET: continue same diet Patient Instructions: Pneumonia-Adult, Chronic Obstructive Pulmonary Disease - Follow up Plan Follow up with: Jan Chowdhury APRN [Referring] - 12/30/17 Disposition: Home, Self-Senior Care Medications: Home Medications Medication Instructions Recorded Confirmed Type Albuterol Sulfate [Albuterol HFA 1 puff INHALATION Q6HP PRN 12/26/17 12/26/17 History Inhaler] Aspirin [Aspir-Low] 81 mg PO DAILY 12/26/17 12/26/17 History Budesonide/Formoterol Fumarate 1 puff INHALATION BID 12/26/17 12/26/17 History [Symbicort 80-4.5 Mcg Inhaler] Buspirone HCl 15 mg PO BID 12/26/17 12/26/17 History Cyclobenzaprine HCl 5 mg PO HSP PRN 12/26/17 12/26/17 History [Cyclobenzaprine 5mg Tab] Divalproex Sodium 250 mg PO TID 12/26/17 12/26/17 History Ferrous Sulfate 325 mg PO TID 12/26/17 12/26/17 History Fluticasone Propionate [Flonase 1 spray IN DAILY 12/26/17 12/26/17 History 50mcg nasal spray 16gm] Folic Acid [Folic Acid 1mg tablet] 1 mg PO DAILY 12/26/17 12/26/17 History Furosemide [Furosemide 40MG tAB] 40 mg PO DAILY 12/26/17 12/26/17 History Gabapentin [Gabapentin 300mg Cap] 300 mg PO TID 12/26/17 12/26/17 History Lisinopril [Lisinopril 40mg Tablet] 40 mg PO DAILY 12/26/17 12/26/17 History Loratadine [Claritin] 10 mg PO DAILY 12/26/17 12/26/17 History Meclizine HCl [Meclizine 12.5mg 12.5 mg PO Q8HP PRN 12/26/17 12/26/17 History Tab] Montelukast Sodium [Montelukast 10 mg PO HS 12/26/17 12/26/17 History 10mg Tab] Naproxen 250 mg PO BID 12/26/17 12/26/17 History Nitroglycerin [Nitrostat 0.4mg SL 0.4 mg SL [id number] PRN 12/26/17 12/26/17 History Tablet] Pantoprazole Sodium [Pantoprazole 20 mg PO DAILY 12/26/17 12/26/17 History 20mg Tab] Potassium Chloride [Micro-K 10mEq 20 meq PO DAILY 12/26/17 12/26/17 History cap] Quetiapine Fumarate 300 mg PO HS 12/26/17 12/26/17 History Sertraline HCl [Zoloft 100mg 100 mg PO DAILY 12/26/17 12/26/17 History tablet] Simvastatin 40 mg PO HS 12/26/17 12/26/17 History Prescriptions/Medication Reconciliation: New predniSONE [Deltasone 20mg tablet] 20 mg PO BID 7 Days #14 tab levoFLOXacin [Levaquin 500mg tab] 500 mg PO DAILY #7 tab Continue Divalproex Sodium 250 mg PO TID Pantoprazole Sodium [Pantoprazole 20mg Tab] 20 mg PO DAILY Folic Acid [Folic Acid 1mg tablet] 1 mg PO DAILY Naproxen 250 mg PO BID Loratadine [Claritin] 10 mg PO DAILY Aspirin [Aspir-Low] 81 mg PO DAILY Potassium Chloride [Micro-K 10mEq cap] 20 meq PO DAILY Ferrous Sulfate 325 mg PO TID Buspirone HCl 15 mg PO BID Budesonide/Formoterol Fumarate [Symbicort 80-4.5 Mcg Inhaler] 1 puff INHALATION BID Lisinopril [Lisinopril 40mg Tablet] 40 mg PO DAILY Gabapentin [Gabapentin 300mg Cap] 300 mg PO TID Furosemide [Furosemide 40MG tAB] 40 mg PO DAILY Fluticasone Propionate [Flonase 50mcg nasal spray 16gm] 1 spray IN DAILY Simvastatin 40 mg PO HS Quetiapine Fumarate 300 mg PO HS Meclizine HCl [Meclizine 12.5mg Tab] 12.5 mg PO Q8HP PRN PRN Reason: dizzy Montelukast Sodium [Montelukast 10mg Tab] 10 mg PO HS Sertraline HCl [Zoloft 100mg tablet] 100 mg PO DAILY Albuterol Sulfate [Albuterol HFA Inhaler] 1 puff INHALATION Q6HP PRN PRN Reason: copd Nitroglycerin [Nitrostat 0.4mg SL Tablet] 0.4 mg SL [id number] PRN PRN Reason: Chest Pain Cyclobenzaprine HCl [Cyclobenzaprine 5mg Tab] 5 mg PO HSP PRN PRN Reason: MUSCLE SPASMS
--- NOTE | 2017-12-28 09:44 | Pharmacy Consult Notes ---
- Pharmacy Consult Date: 12/28/17 Time: 09:43 Referring provider: DR. LECHUGA Reason for Consult:: VANCOMYCIN TROUGH LEVEL Allergies and ADEs:: Allergies Allergy/AdvReac Type Severity Reaction Status Date / Time Penicillins [PENICILLINS] Allergy Unknown Verified 12/26/17 04:12 Home Medications:: Home Medications Medication Instructions Recorded Confirmed Type Albuterol Sulfate [Albuterol HFA 1 puff INHALATION Q6HP PRN 12/26/17 12/26/17 History Inhaler] Aspirin [Aspir-Low] 81 mg PO DAILY 12/26/17 12/26/17 History Budesonide/Formoterol Fumarate 1 puff INHALATION BID 12/26/17 12/26/17 History [Symbicort 80-4.5 Mcg Inhaler] Buspirone HCl 15 mg PO BID 12/26/17 12/26/17 History Cyclobenzaprine HCl 5 mg PO HSP PRN 12/26/17 12/26/17 History [Cyclobenzaprine 5mg Tab] Divalproex Sodium 250 mg PO TID 12/26/17 12/26/17 History Ferrous Sulfate 325 mg PO TID 12/26/17 12/26/17 History Fluticasone Propionate [Flonase 1 spray IN DAILY 12/26/17 12/26/17 History 50mcg nasal spray 16gm] Folic Acid [Folic Acid 1mg tablet] 1 mg PO DAILY 12/26/17 12/26/17 History Furosemide [Furosemide 40MG tAB] 40 mg PO DAILY 12/26/17 12/26/17 History Gabapentin [Gabapentin 300mg Cap] 300 mg PO TID 12/26/17 12/26/17 History Lisinopril [Lisinopril 40mg Tablet] 40 mg PO DAILY 12/26/17 12/26/17 History Loratadine [Claritin] 10 mg PO DAILY 12/26/17 12/26/17 History Meclizine HCl [Meclizine 12.5mg 12.5 mg PO Q8HP PRN 12/26/17 12/26/17 History Tab] Montelukast Sodium [Montelukast 10 mg PO HS 12/26/17 12/26/17 History 10mg Tab] Naproxen 250 mg PO BID 12/26/17 12/26/17 History Nitroglycerin [Nitrostat 0.4mg SL 0.4 mg SL [id number] PRN 12/26/17 12/26/17 History Tablet] Pantoprazole Sodium [Pantoprazole 20 mg PO DAILY 12/26/17 12/26/17 History 20mg Tab] Potassium Chloride [Micro-K 10mEq 20 meq PO DAILY 12/26/17 12/26/17 History cap] Quetiapine Fumarate 300 mg PO HS 12/26/17 12/26/17 History Sertraline HCl [Zoloft 100mg 100 mg PO DAILY 12/26/17 12/26/17 History tablet] Simvastatin 40 mg PO HS 12/26/17 12/26/17 History Height: 1.83 m Weight: 129.954 kg Laboratory Results:: Laboratory Results - last 24 hr 12/27/17 16:06: POC Glucose 175 H 12/27/17 20:47: POC Glucose 163 H 12/28/17 06:12: POC Glucose 182 H 12/28/17 06:20: WBC 26.4 H* D, RBC 3.45 L, Hgb 10.8 L, Hct 33.1 L, MCV 95.9 H, MCH 31.2, MCHC 32.6, RDW 14.3, Plt Count 412, MPV 7.3 L, Neut % (Auto) 93.7 H, Lymph % (Auto) 3.4 L, [place] % (Auto) 2.8, Eos % (Auto) 0.0 L, Baso % (Auto) 0.0 L , Neut # (Auto) 24.7 H, Lymph # (Auto) 0.9, [place] # (Auto) 0.7, Eos # (Auto) 0.0, Baso # (Auto) 0.0, Total Counted 100, Neutrophils % (Manual) 82 H, Band Neutrophils % 9.0 H, Lymphocytes % (Manual) 6 L, Monocytes % (Manual) 3, Platelet Estimate Normal, RBC Morphology Normal 12/28/17 06:20: Sodium 132 L, Potassium 5.1, Chloride 101, Carbon Dioxide 19 L, Anion Gap 17.1 H, BUN 48 H D, Creatinine 1.92 H, Estimated Creat Clear 77, Estimated GFR 36 L, Est GFR ( Amer) 44 L, Glucose 183 H, Calcium 8.6, Total Bilirubin 0.3, AST 9 L D, ALT 12, Alkaline Phosphatase 66, Total Protein 6.6, Albumin 2.3 L, Globulin 4.3 H, Albumin/Globulin Ratio 0.5 L 12/28/17 08:20: Vancomycin Trough 18.0 Medical History: Reports:: Chronic Obstructive Pulmonary Disease (COPD), Diabetes Mellitus Type 2, Hypertension, MRSA Denies:: Cancer, Diabetes Mellitus Type 1 Assessment and Plan (1) Pneumonia Current visit: Yes Status: Acute Category: Medical Code(s): J18.9 - Pneumonia, unspecified organism (2) COPD exacerbation Current visit: Yes Status: Acute Category: Medical Code(s): J44.1 - Chroni c obstructive pulmonary disease with (acute) exacerbation (3) Morbid obesity Current visit: Yes Status: Chronic Category: Medical Code(s): E66.01 - Morbid (severe) obesity due to excess calories (4) Diabetes mellitus Current visit: Yes Status: Chronic Category: Medical Code(s): E11.9 - Type 2 diabetes mellitus without complications (5) History of MRSA infection Current visit: Yes Status: Chronic Category: Medical Code(s): Z86.14 - Personal history of Methicillin resistant Staphylococcus aureus infection (6) Elevated troponin Current visit: Yes Status: Ruled-out Category: Medical Code(s): R74.8 - Abnormal levels of other serum enzymes - Assessment and plan all Dx Assessment and Plan for all problems:: BASED ON PATIENT FACTORS AND VANCOMYCIN TROUGH LEVEL OF 18.0, RECOMMEND CONTINUING CURRENT DOSE OF VANCOMYCIN 2250MG IV Q24H. PHARMACY WILL CONTINUE TO MONITOR AND ADJUST DOSE APPROPRIATE. -TANO GORE, MIAHD
== END 2017-12-28 13:35 | disposition home or self-care (01) ==
LOC: ER 04:06 → 2ND 07:19
PROVIDERS: ADMIT Family Medicine; ATTEND Family Medicine

== ENCOUNTER 2018-03-16 00:05 | Observation (INO) ==
[2018-03-16 00:36] LABS: Basophils # 0.1 K/mm3 (0-0.2); Basophils % 0.4 % (0.1-2.0); Eosinophils # 0.4 K/mm3 (0.0-0.4); Eosinophils % 2.4 % (0.1-12.0); Hematocrit 34.2 % (42.0-52.0); Lymphocytes # 1.8 K/mm3 (0.7-4.5); Lymphocytes % 10.3 % (10-50); Mean Corpuscular Hemoglobin 33.2 pg (27.0-31.2); Mean Corpuscular Volume 94.8 fl (80-94); Mean Platelet Volume 7.5 fl (7.4-10.4); Monocytes # 0.7 K/mm3 (0.1-1.0); Monocytes % 3.8 % (1.7-9.3); Neutrophils # 14.7 K/mm3 (1.8-7.8); Neutrophils % 83.1 % (37.0-80.0); Platelet Count 310 K/mm3 (142-424); Red Blood Count 3.61 M/mm3 (4.60-6.20); Red Cell Distribution Width 13.6 % (11.5-17.5); White Blood Count 17.6 K/mm3 (4.8-10.8)
[2018-03-16 00:45] LABS: Acetone, Serum (Rapid) None Detected (None Detect)
[2018-03-16 00:46] LABS: ABG Base Excess -1.6 mmol/L (-2.4-2.3); ABG HCO3 22.2 mmhg (22.0-26.0); ABG Oxygen Saturation 96 % (90-100); ABG PCO2 31.7 mmhg (35.0-45.0); ABG PH 7.46 mmol/L (7.35-7.45); ABG PO2 81.7 mmhg (80-100); ABG TCO2 23.2 mmhg (23-27)
[2018-03-16 00:47] LABS: Allen's Test Y; Oxygen 3 %
[2018-03-16 00:55] LABS: Albumin Level 2.7 gm/dL (3.4-5.0); Albumin/Globulin Ratio 0.7 (1.1-1.8); Bilirubin,Total 0.3 mg/dL (0.2-1.0); C-Reactive Protein 5.8 mg/L (0.0-0.9); Calcium 8.2 mg/dL (8.5-10.1); Globulin 4.1 gm/dl (1.3-3.2); Total Protein,Serum 6.8 gm/dL (6.4-8.2)
[2018-03-16 00:57] LABS: Lymphocytes % 6 % (10-50); Monocytes % 1 % (2-9); Neutrophils % 85 % (42-76); RBC Morphology Normal; Rouleaux 1+; Total Cells Counted 100
[2018-03-16 01:00] LABS: Ethyl Alcohol 0 mg/dL (0-99)
[2018-03-16 01:09] LABS: Appearance,Urine CLEAR (Clear); Bilirubin,Urine Negative (Negative); Blood, Urine Negative (Negative); Color,Urine YELLOW (Yellow); Glucose,Urine (UA) Negative (Negative); Ketones,Urine Negative (Negative); Leukocyte Esterase,Urine Negative (Negative); Protein,Urine Negative (Negative); Specific Gravity, Urine <= 1.005 (1.005-1.030); Urobilinogen,Urine 0.2 EU/dl (0.2)
[2018-03-16 01:10] LABS: Microscopic, Urine URINE MICROSCOPIC (MICROSCOPIC)
[2018-03-16 01:11] LABS: Squamous Epithelial Cell,Urine Occasional #/hpf (0-5); WBC,Urine Occasional #/hpf (0-3)
--- NOTE | 2018-03-16 02:03 | Emergency Department Note ---
ED Disposition Clinical Impression: Tobacco use, Obesity (BMI 30-39.9), Renal insufficiency Community acquired pneumonia Qualifiers: Laterality: right Lung location: lower lobe of lung Qualified Code(s): J18.1 - Lobar pneumonia, unspecified organism Diabetes Qualifiers: Diabetes mellitus type: type 2 Diabetes mellitus dedicated intermodal truck driver insulin use: unspecified care home insulin use status Diabetes mellitus complication status: with unspecified complications Qualified Code(s): E11.8 - Type 2 diabetes mellitus with unspecified complications Disposition: Admitted as Observation Condition on Discharge: Good Referrals: Provider,Referral, [Primary Care Provider] - - Critical Care Critical Care Time: No Attestation: On 03/16/18, the high probability of a clinically significant, sudden or life threatening deterioration of the following system(s) required my full and direct attention, intervention and personal management. The time I documented below is in addition to time spent performing reported procedures but includes the following listed in this critical care notation. Medical Decision Making - Medical Records Medical records reviewed: Yes: I reviewed the patient's medical records. - Jasvir Inquiry Pt receiving controlled substance: No Vital Signs: 03/16/18 00:05 03/16/18 01:27 Temperature 101.4 F H Temperature Source Rectal Pulse Rate [Right Radial] 109 H 87 Respiratory Rate 22 20 Blood Pressure [Right Arm] 109/59 L 123/63 Blood Pressure Mean [Right Arm] 75 83 Blood Pressure Source [Right Arm] Automatic Cuff Blood Pressure Position [Right Arm] Supine 02 Sat by Pulse Oximetry 95 95 Oxygen Delivery Method Nasal Cannula Nasal Cannula Oxygen Flow Rate (LPM) 3 3 - Lab Data Lab results reviewed: Yes: I reviewed the patient's lab results. Lab Results 03/16/18 00:08: POC Glucose 154 H 03/16/18 00:20: WBC 17.6 H, RBC 3.61 L, Hgb 12.0 L, Hct 34.2 L, MCV 94.8 H, MCH 33.2 H, MCHC 35.0, RDW 13.6, Plt Count 310, MPV 7.5, Neut % (Auto) 83.1 H, Lymph % (Auto) 10.3, [place] % (Auto) 3.8, Eos % (Auto) 2.4, Baso % (Auto) 0.4, Neut # (Auto) 14.7 H, Lymph # (Auto) 1.8, [place] # (Auto) 0.7, Eos # (Auto) 0.4, Baso # (Auto) 0.1, Total Counted 100, Neutrophils % (Manual) 85 H, Band Neutrophils % 8.0, Lymphocytes % (Manual) 6 L, Monocytes % (Manual) 1 L, Platelet Estimate Normal, RBC Morphology Normal, Rouleaux 1+ 03/16/18 00:20: Sodium 132 L, Potassium 4.0, Chloride 98, Carbon Dioxide 23, Anion Gap 15.0, BUN 10, Creatinine 1.51 H, Estimated Creat Clear 96, Estimated GFR 48 L, Est GFR ( Amer) 58 L, Glucose 160 H, Calcium 8.2 L, Total Bilirubin 0.3, AST 10 L, ALT 11 L, Alkaline Phosphatase 74, C-Reactive Protein 5.8 H, Total Protein 6.8, Albumin 2.7 L, Globulin 4.1 H, Albumin/Globulin Ratio 0.7 L 03/16/18 00:20: ESR 51 H 03/16/18 00:20: Lactate 1.9 03/16/18 00:20: Troponin I 0.05, Plasma/Serum Alcohol 0, Acetone Level None detected 03/16/18 00:20: B-Natriuretic Peptide 28 03/16/18 00:45: Specimen Source R/r, O2 % 3, ABG pH 7.46 H, ABG pCO2 31.7 L, ABG pO2 81.7, ABG HCO3 22.2, ABG Total CO2 23.2, ABG O2 Saturation 96, ABG Base Excess -1.6, Enrique Test Y 03/16/18 00:50: Urine Color Yellow, Urine Appearance Clear, Urine pH 6.0, Ur Specific [place] <= 1.005, Urine Protein Negative, Urine Glucose (UA) Negative, Urine Ketones Negative, Urine Blood Negative, Urine Nitrate Negative, Urine Bilirubin Negative, Urine Urobilinogen 0.2, Ur Leukocyte Esterase Negative, Urine WBC Occasional, Ur Squamous Epith Cells Occasional Result diagrams: 03/16/18 00:20 03/16/18 00:20 Orders (Tests/Meds): ED MEDICATIONS Generic Name Dose Route Start Last Admin Trade Name Freq PRN Reason Stop Dose Admin Sodium Chloride 1,000 mls @ 999 mls/hr 03/16/18 00:15 03/16/18 00:16 Sod Chlor 0.9% 1000ml Bag IV 03/16/18 01:15 999 mls/hr .Q1H1M TEJINDER Administration Sodium Chloride 10 ml 03/16/18 00:13 Saline Flush 10ml Syringe IV 04/15/18 00:12 NEEDED PRN Maintain IV Site Discontinued Medications Generic Name Dose Route Start Last Admin Trade Name Ejq PRN Reason Stop Dose Admin Acetaminophen 1,000 mg 03/16/18 00:15 03/16/18 00:16 Tylenol 500mg Tablet PO 03/16/18 00:16 1,000 mg ONCE ONE Administration Ibuprofen 600 mg 03/16/18 00:15 03/16/18 00:16 Motrin 600mg Tablet PO 03/16/18 00:16 600 mg ONCE ONE Administration ORDERS Category Date Time Status XR chest portable Stat Exams 03/16/18 00:12 Taken Rapid Influenza A&B Antigens Stat Lab 03/16/18 00:16 Ordered Urinalysis and Microscopic Stat Lab 03/16/18 00:50 Ordered Blood Culture Stat Micro 03/16/18 00:13 Ordered ABG [Arterial Blood Gas] Stat RT 03/16/18 00:19 Ordered - Radiology Data #1 Image(s): Chest Image Reviewed: Yes I reviewed the patient's radiology image Preliminary Findings: Abnormal (changes bases ) - ECG Data Tracing #1 I reviewed this ECG and interpreted as documented below: Arrhythmias present: sinus tach Ischemic changes: non-specific ST-T wave changes - Physician Consults Physician Consulted: abhay Reason -: Admission Resp/SOB HPI - General Chief Complaint: Shortness of Breath/Dyspnea Stated Complaint: shortness of breath Time Seen by Provider: 03/16/18 00:30 Mode of Arrival: EMS Limitations: No Limitations Description of Symptoms (Recalled from ER Triage Doc. by RN): Pt reports shortness of breath that started approx 1 week ago, states that he has been "falling" frequently at home, denies any injuries from falls - History of Present Illness pt with sawyer helper cough and congestion - pt with tob / diabetes mellitus - - pt with reported occ falls - MD Complaint: shortness of breath, cough Onset (ago): day(s) Severity: moderate Known history of: COPD Associated symptoms: cough Treatment prior to arrival: oxygen, bronchodilator - Related Data Home oxygen amount: none Home Medications Medication Instructions Recorded Confirmed Aspirin [Aspir-Low] 81 mg PO DAILY 12/26/17 03/16/18 Budesonide/Formoterol Fumarate 1 puff INHALATION BID 12/26/17 03/16/18 [Symbicort 80-4.5 Mcg Inhaler] Buspirone HCl 15 mg PO BID 12/26/17 03/16/18 Cyclobenzaprine HCl 5 mg PO HSP PRN 12/26/17 03/16/18 [Cyclobenzaprine 5mg Tab] Divalproex Sodium 250 mg PO TID 12/26/17 03/16/18 Ferrous Sulfate 325 mg PO TID 12/26/17 03/16/18 Fluticasone Propionate [Flonase 1 spray IN DAILY 12/26/17 03/16/18 50mcg nasal spray 16gm] Folic Acid [Folic Acid 1mg tablet] 1 mg PO DAILY 12/26/17 03/16/18 Furosemide [Furosemide 40MG tAB] 40 mg PO DAILY 12/26/17 03/16/18 Gabapentin [Gabapentin 300mg Cap] 300 mg PO TID 12/26/17 03/16/18 Lisinopril [Lisinopril 40mg Tablet] 40 mg PO DAILY 12/26/17 03/16/18 Loratadine [Claritin] 10 mg PO DAILY 12/26/17 03/16/18 Meclizine HCl [Meclizine 12.5mg 12.5 mg PO Q8HP PRN 12/26/17 03/16/18 Tab] Montelukast Sodium [Montelukast 10 mg PO HS 12/26/17 03/16/18 10mg Tab] Nitroglycerin [Nitrostat 0.4mg SL 0.4 mg SL [id number] PRN 12/26/17 03/16/18 Tablet] Pantoprazole Sodium [Pantoprazole 20 mg PO DAILY 12/26/17 03/16/18 20mg Tab] Potassium Chloride [Micro-K 10mEq 20 meq PO DAILY 12/26/17 03/16/18 cap] Quetiapine Fumarate 300 mg PO HS 12/26/17 03/16/18 Sertraline HCl [Zoloft 100mg 100 mg PO DAILY 12/26/17 03/16/18 tablet] Simvastatin 40 mg PO HS 12/26/17 03/16/18 Insulin Aspart [Novolog] 100 unit SQ TID 03/16/18 03/16/18 Metformin HCl [Glucophage Xr] 500 mg PO DAILY 03/16/18 03/16/18 Allergies Allergy/AdvReac Type Severity Reaction Status Date / Time Penicillins [PENICILLINS] Allergy Unknown Verified 03/16/18 00:[address] [facility] History - Hepatitis A Screen Drug use history?: No High risk sexual behaviors?: No History of sexually transmitted infection?: No Currently employed?: No Childcare worker?: No Do you have indoor plumbing?: Yes Do you have electricity?: Yes Attestation statement:: This patient has been screened for Hepatitis A risk factors. I have reviewed the patient's past medical history: Yes Medical History: Reports:: Chronic Obstructive Pulmonary Disease (COPD), Diabetes Mellitus Type 1, Hypertension, MRSA Denies:: Cancer, Diabetes Mellitus Type 2 Amputation: No - Social History Smoking Status: Current every day smoker # Packs/Day (cigarettes): 20 Alcohol Intake: never Occupational Status: disabled Household Members: spouse - Psychiatric History Expresses thoughts of harming self/others: None Suicide Plan Description: No Plan Family Hx:: Cancer, Coronary Artery Disease ROS Obtained: Yes All systems reviewed & no additional complaints - Constitutional Constitutional: Reports as per HPI, Reports fever(s), Reports frequent falls - Eyes Eyes: Denies change in vision - ENT Ears, Nose, Mouth, and Throat: Denies sore throat - Cardiovascular Cardiovascular: Denies chest pain, Reports dyspnea - Respiratory Respiratory: Yes cough, No non-productive cough, No coughing up blood - Gastrointestinal Gastrointestingal: Denies: abdominal pain, diarrhea, vomiting - Genitourinary Male Genitourinary: Denies hematuria - Musculoskeletal Musculoskeletal: Denies joint pain, Denies joint swelling - Integumentary/Breasts Skin/Breast: Denies rash - Neurologic Neurologic: Denies seizure-like activity Physical Exam - General General appearance: alert, obese - Head Head exam: normocephalic - Eye Eye exam: Present: PERRL, EOMI - ENT ENT exam: Present: mucous membranes dry - Neck Neck exam: Present: trachea midline - Respiratory Respiratory exam: Present: other (bilat rhonchi ). Absent: respiratory distress - Cardiovascular Cardiovascular exam: Present: regular rate, systolic murmur, +S4 - Abdominal Exam Abdominal exam: Present: soft - Extremities Exam Extremities exam: Absent: tenderness, calf tenderness - Neurological Exam Neurological exam: Present: alert, oriented X3, CN II-XII intact - Psychiatric Psychiatric exam: Present: normal affect - Skin Skin exam: Absent: rash
[2018-03-16 05:29] LABS: Basophils % 0.2 % (0.1-2.0); Eosinophils # 0.1 K/mm3 (0.0-0.4); Eosinophils % 0.3 % (0.1-12.0); Hematocrit 36.1 % (42.0-52.0); Hemoglobin 11.5 g/dL (14.1-18.0); Lymphocytes # 0.5 K/mm3 (0.7-4.5); Lymphocytes % 2.4 % (10-50); Mean Corpuscular HGB Conc 31.9 g/dL (31.8-35.4); Mean Corpuscular Hemoglobin 30.7 pg (27.0-31.2); Mean Corpuscular Volume 96.1 fl (80-94); Mean Platelet Volume 7.3 fl (7.4-10.4); Monocytes # 0.3 K/mm3 (0.1-1.0); Monocytes % 1.3 % (1.7-9.3); Neutrophils # 18.4 K/mm3 (1.8-7.8); Neutrophils % 95.8 % (37.0-80.0); Platelet Count 300 K/mm3 (142-424); Red Blood Count 3.76 M/mm3 (4.60-6.20); Red Cell Distribution Width 13.5 % (11.5-17.5); White Blood Count 19.2 K/mm3 (4.8-10.8)
[2018-03-16 05:46] LABS: Anion Gap 14.4 mEq/L (5-15); Calcium 8.4 mg/dL (8.5-10.1); Potassium 4.4 mmoL/L (3.5-5.1)
--- NOTE | 2018-03-16 07:29 | Pharmacy Consult Notes ---
[facility] Pharmacy VTE Monitoring - Patient Demographics Admission date: 03/16/18 Report Date: 03/16/18 Time: 07:29 Allergies/Adverse Reactions: Patient Allergies Penicillins [PENICILLINS] Allergy (Unknown, Verified 03/16/18 00:35) Height: 1.83 m Weight: 124.398 kg Patient Problems: Current Active Problems Diabetes mellitus (Chronic) Community acquired pneumonia (Acute) Tobacco use (Acute) Obesity (BMI 30-39.9) (Acute) Renal insufficiency (Acute) - VTE Risk Labs: VTE Related Lab Results Hgb 11.5 g/dL (14.1-18.0) L 03/16/18 05:21 Hct 36.1 % (42.0-52.0) L 03/16/18 05:21 Plt Count 300 K/mm3 (142-424) 03/16/18 05:21 BUN 11 mg/dL (7-18) 03/16/18 05:21 Creatinine 1.51 mg/dL (0.70-1.30) H 03/16/18 05:21 Estimated Creat Clear 94 mL/min (50-200) 03/16/18 05:21 VTE Score: 10 VTE Risk Level: Moderate Risk - Prophylaxis VTE Prophylaxis Ordered?: Yes Types of VTE Prophylaxis: TEDS Knee High Location of Applied Device: Bilateral Lower Extremeties - VTE Diagnosis Confirmed Treatment or plan recommended: Continue Current Treatment
--- NOTE | 2018-03-16 09:00 | History & Physical Report ---
*Admission Date: 03/16/18 *Chief complaint: Falls and shortness of breath *History of present illness: Mr. Campbell is a 57-year-old male with a history of previous CVA, COPD, morbid obesity, diabetes mellitus, and recent admission 12/26 through 12/28/2017 with pneumonia who presented to [facility] emergency room with shortness of breath. Patient states he has had a nonproductive cough for about a week. He denies having a fever. He states he has fallen 3 times in the last week and last night fell out of bed. He has been eating normally. Patient arrived to his room in early a.m. He does feel somewhat better. [facility] History Medical History: Reports:: Anxiety (PTSD), Chronic Obstructive Pulmonary Disease (COPD), Cerebrovascular Accident, Depression, Diabetes Mellitus Type 1, Hypertension, MRSA Denies:: Cancer, Diabetes Mellitus Type 2, Seizures Have you ever received a pneumonia vaccine?: Yes Have you received a flu vaccine this season?: Yes Comment:: Patient has had a CVA in the past with right-sided residual. Other Surgeries: Yes: EGD, Other (hernia) Amputation: No - *Social History Educational Level: Attended High School Smoking Status: Current every day smoker Tobacco Type: cigarettes # Packs/Day (cigarettes): 1 #Yrs smoked (if former smoker): 30 Alcohol Intake: never Occupational Status: disabled Housing: apartment Household Members: spouse Travel in the last 8 weeks: None - Psychiatric History Expresses thoughts of harming self/others: None Suicide Plan Description: No Plan Pschychiatric History:: Reports:: Anxiety, Depression, Post Traumatic Stress Disorder *Family Hx:: Cancer, Coronary Artery Disease Review of Systems - Constitutional Reports headache(s), Denies chills - ENT Reports sore throat, Denies ear pain - *Cardiovascular Reports shortness of breath, Denies chest pain, Denies irregular heart rhythm - *Respiratory Reports cough, Reports shortness of breath, Denies excessive phlegm production, Denies coughing up blood - *Gastrointestinal Denies change in stools, Denies constipation, Denies nausea, Denies vomiting - *Genitourinary Denies difficulty urinating - *Musculoskeletal Reports abnormal walking, Reports muscle weakness Comments: 3 falls within the last week - *Neurologic Reports abnormal walking, Reports unsteadiness, Reports dizziness, Reports frequent falls, Denies seizure-like activity - Psychiatric Reports depression Meds Home Medications Medication Instructions Recorded Confirmed Type Aspirin [Aspir-Low] 81 mg PO DAILY 12/26/17 03/16/18 History Budesonide/Formoterol Fumarate 1 puff INHALATION BID 12/26/17 03/16/18 History [Symbicort 80-4.5 Mcg Inhaler] Buspirone HCl 15 mg PO BID 12/26/17 03/16/18 History Cyclobenzaprine HCl 5 mg PO HSP PRN 12/26/17 03/16/18 History [Cyclobenzaprine 5mg Tab] Divalproex Sodium 250 mg PO TID 12/26/17 03/16/18 History Ferrous Sulfate 325 mg PO TID 12/26/17 03/16/18 History Fluticasone Propionate [Flonase 1 spray IN DAILY 12/26/17 03/16/18 History 50mcg nasal spray 16gm] Folic Acid [Folic Acid 1mg tablet] 1 mg PO DAILY 12/26/17 03/16/18 History Furosemide [Furosemide 40MG tAB] 40 mg PO DAILY 12/26/17 03/16/18 History Gabapentin [Gabapentin 300mg Cap] 300 mg PO TID 12/26/17 03/16/18 History Lisinopril [Lisinopril 40mg Tablet] 40 mg PO DAILY 12/26/17 03/16/18 History Loratadine [Claritin] 10 mg PO DAILY 12/26/17 03/16/18 History Meclizine HCl [Meclizine 12.5mg 12.5 mg PO Q8HP PRN 12/26/17 03/16/18 History Tab] Montelukast Sodium [Montelukast 10 mg PO HS 12/26/17 03/16/18 History 10mg Tab] Nitroglycerin [Nitrostat 0.4mg SL 0.4 mg SL [id number] PRN 12/26/17 03/16/18 History Tablet] Pantoprazole Sodium [Pantoprazole 20 mg PO DAILY 12/26/17 03/16/18 History 20mg Tab] Potassium Chloride [Micro-K 10mEq 20 meq PO DAILY 12/26/17 03/16/18 History cap] Quetiapine Fumarate 300 mg PO HS 12/26/17 03/16/18 History Sertraline HCl [Zoloft 100mg 100 mg PO DAILY 12/26/17 03/16/18 History tablet] Simvastatin 40 mg PO HS 12/26/17 03/16/18 History Albuterol Sulfate [Albuterol HFA 1 puffs INHALATION Q6 PRN 03/16/18 03/16/18 History Inhaler] Folic Acid [Folic Acid 1mg tablet] 1 mg PO DAILY 03/16/18 03/16/18 History Insulin Aspart [Novolog] 100 unit SQ TID 03/16/18 03/16/18 History Metformin HCl [Glucophage Xr] 500 mg PO DAILY 03/16/18 03/16/18 History guaiFENesin [Mucus Relief] 1 tab PO Q4HP PRN 03/16/18 03/16/18 History Allergies Allergy/AdvReac Type Severity Reaction Status Date / Time Penicillins [PENICILLINS] Allergy Unknown Verified 03/16/18 00:35 Exam Vital signs and Labs for Last 24 Hours: Temp Pulse Resp BP Pulse Ox 97.7 F 79 18 117/74 92 L 03/16/18 08:00 03/16/18 08:00 03/16/18 08:00 03/16/18 08:00 03/16/18 08:00 Laboratory Results - last 24 hr 03/16/18 00:08: POC Glucose 154 H 03/16/18 00:20: WBC 17.6 H, RBC 3.61 L, Hgb 12.0 L, Hct 34.2 L, MCV 94.8 H, MCH 33.2 H, MCHC 35.0, RDW 13.6, Plt Count 310, MPV 7.5, Neut % (Auto) 83.1 H, Lymph % (Auto) 10.3, [place] % (Auto) 3.8, Eos % (Auto) 2.4, Baso % (Auto) 0.4, Neut # (Auto) 14.7 H, Lymph # (Auto) 1.8, [place] # (Auto) 0.7, Eos # (Auto) 0.4, Baso # (Auto) 0.1, Total Counted 100, Neutrophils % (Manual) 85 H, Band Neutrophils % 8.0, Lymphocytes % (Manual) 6 L, Monocytes % (Manual) 1 L, Platelet Estimate Normal, RBC Morphology Normal, Rouleaux 1+ 03/16/18 00:20: Sodium 132 L, Potassium 4.0, Chloride 98, Carbon Dioxide 23, Anion Gap 15.0, BUN 10, Creatinine 1.51 H, Estimated Creat Clear 96, Estimated GFR 48 L, Est GFR ( Amer) 58 L, Glucose 160 H, Calcium 8.2 L, Total Bilirubin 0.3, AST 10 L, ALT 11 L, Alkaline Phosphatase 74, C-Reactive Protein 5.8 H, Total Protein 6.8, Albumin 2.7 L, Globulin 4.1 H, Albumin/Globulin Ratio 0.7 L 03/16/18 00:20: ESR 51 H 03/16/18 00:20: Lactate 1.9 03/16/18 00:20: Troponin I 0.05, Plasma/Serum Alcohol 0, Acetone Level None detected 03/16/18 00:20: B-Natriuretic Peptide 28 03/16/18 00:45: Specimen Source R/r, O2 % 3, ABG pH 7.46 H, ABG pCO2 31.7 L, ABG pO2 81.7, ABG HCO3 22.2, ABG Total CO2 23.2, ABG O2 Saturation 96, ABG Base Excess -1.6, Enrique Test Y 03/16/18 00:50: Urine Color Yellow, Urine Appearance Clear, Urine pH 6.0, Ur Specific [place] <= 1.005, Urine Protein Negative, Urine Glucose (UA) Negative, Urine Ketones Negative, Urine Blood Negative, Urine Nitrate Negative, Urine Bilirubin Negative, Urine Urobilinogen 0.2, Ur Leukocyte Esterase Negative, Urine WBC Occasional, Ur Squamous Epith Cells Occasional 03/16/18 05:21: Sodium 131 L, Potassium 4.4, Chloride 99, Carbon Dioxide 22, Anion Gap 14.4, BUN 11, Creatinine 1.51 H, Estimated Creat Clear 94, Estimated GFR 48 L, Est GFR ( Amer) 58 L, Glucose 227 H D, Calcium 8.4 L, Magnesium 1.5, Troponin I 0.11 H 03/16/18 05:21: WBC 19.2 H, RBC 3.76 L, Hgb 11.5 L, Hct 36.1 L, MCV 96.1 H, MCH 30.7, MCHC 31.9, RDW 13.5, Plt Count 300, MPV 7.3 L, Neut % (Auto) 95.8 H, Lymph % (Auto) 2.4 L, [place] % (Auto) 1.3 L, Eos % (Auto) 0.3, Baso % (Auto) 0.2, Neut # (Auto) 18.4 H, Lymph # (Auto) 0.5 L, [place] # (Auto) 0.3, Eos # (Auto) 0.1, Baso # (Auto) 0.0 03/16/18 06:16: POC Glucose 202 H I & O for Last 24 hours: Intake & Output 03/13/18 03/14/18 03/15/18 03/16/18 11:59 11:59 11:59 11:59 Intake Total 540 / 540 Balance 540 / 540 Weight 274 lb 4 oz Radiology Reports for the Last 24 Hours: 03/16/2018 chest x-ray IMPRESSION: Left lower lobe infiltrate - Constitutional no acute distress Comments: Sitting on the bedside eating his breakfast - *Routine HEENT Exam Head: Present: normocephalic, atraumatic Eye: Present: PERRL. Absent: conjunctival icterus, scleral injection ENT: Present: mucous membranes moist, oropharynx clear - *Routine Neck Exam Present: supple. Absent: carotid bruit, lymphadenopathy, thyromegaly - *Routine Respiratory Exam Comments: Bibasilar crackles greater on the left - *Routine Cardiovascular Exam Present: RRR Comments: Monitor showing normal sinus rhythm - *Routine Abdominal Exam Present: soft, normoactive bowel sounds. Absent: tenderness, distended - *Routine Extremities Exam Present: edema (Trace). Absent: calf tenderness - *Routine Neurological Exam Present: alert, oriented X3 Assessment and Plan (1) Community acquired pneumonia Current visit: Yes Status: Acute Qualifiers: Laterality: right Lung location: lower lobe of lung Qualified Code(s): J18.1 - Lobar pneumonia, unspecified organism Category: Medical Code(s): J18.9 - Pneumonia, unspecified organism (2) H/O: CVA (cerebrovascular accident) Current visit: Yes Status: Chronic Category: Medical Code(s): Z86.73 - Personal history of transient ischemic attack (TIA), and cerebral infarction without residual deficits (3) Obesity (BMI 30-39.9) Current visit: Yes Status: Chronic Category: Medical Code(s): E66.9 - Obesity, unspecified (4) Renal insufficiency Current visit: Yes Status: Chronic Category: Medical Code(s): N28.9 - Disorder of kidney and ureter, unspecified (5) Tobacco use Current visit: Yes Status: Chronic Category: Medical Code(s): Z72.0 - Tobacco use (6) Diabetes mellitus Current visit: Yes Status: Chronic Qualifiers: Diabetes mellitus type: type 2 Diabetes mellitus manager intermediate insulin use: unspecified manager intermediate insulin use status Diabetes mellitus complication status: with unspecified complications Qualified Code(s): E11.8 - Type 2 diabetes mellitus with unspecified complications Category: Medical Code(s): E11.9 - Type 2 diabetes mellitus without complications (7) COPD exacerbation Current visit: No Status: Chronic Category: Medical Code(s): J44.1 - Chronic obstructive pulmonary disease with (acute) exacerbation (8) History of MRSA infection Current visit: No Status: Chronic Category: Medical Code(s): Z86.14 - Personal history of Methicillin resistant Staphylococcus aureus infection - Assessment and plan all Dx Assessment and Plan for all problems:: Continue with duo nebs and antibiotics.
--- NOTE | 2018-03-17 09:41 | Progress Note ---
Internal Medicine - PN: Subj *Date: 03/17/18 *Time: 09:40 Interval history: He seems quite comfortable and much improved. Exam Vital signs and Labs for Last 24 Hours: Temp Pulse Resp BP Pulse Ox 98.2 F 81 18 144/64 H 94 L 03/17/18 08:00 03/17/18 08:00 03/17/18 08:00 03/17/18 08:00 03/17/18 08:00 Laboratory Results - last 24 hr 03/16/18 08:58: TSH 0.46 03/16/18 11:39: POC Glucose 166 H 03/16/18 17:10: POC Glucose 137 H 03/16/18 21:06: POC Glucose 111 H 03/17/18 04:11: POC Glucose 129 H I & O for Last 24 hours: Intake & Output 03/14/18 03/15/18 03/16/18 03/17/18 11:59 11:59 11:59 11:59 Intake Total 540 / 540 2662 / 2662 Output Total 1300 / 1300 Balance 540 / 540 1362 / 1362 Weight 274 lb 4 oz 273 lb 9 oz Microbiology Reports for the Last 24 Hours: Microbiology 03/16/18 00:13 Blood Blood Culture - Preliminary 03/16/18 00:13 Blood Blood Culture - Preliminary - Constitutional no acute distress - *Routine HEENT Exam Head: Present: normocephalic Eye: Present: PERRL - *Routine Respiratory Exam Present: decreased breath sounds, CTA bilaterally - *Routine Cardiovascular Exam Present: RRR - *Routine Abdominal Exam Present: soft. Absent: tenderness - *Routine Extremities Exam Absent: edema Assessment and Plan (1) Community acquired pneumonia Current visit: Yes Status: Acute Qualifiers: Laterality: right Lung location: lower lobe of lung Qualified Code(s): J18.1 - Lobar pneumonia, unspecified organism Category: Medical Code(s): J18.9 - Pneumonia, unspecified organism (2) H/O: CVA (cerebrovascular accident) Current visit: Yes Status: Chronic Category: Medical Code(s): Z86.73 - Personal history of transient ischemic attack (TIA), and cerebral infarction without residual deficits (3) Obesity (BMI 30-39.9) Current visit: Yes Status: Chronic Category: Medical Code(s): E66.9 - Obesity, unspecified (4) Renal insufficiency Current visit: Yes Status: Chronic Category: Medical Code(s): N28.9 - Disorder of kidney and ureter, unspecified (5) Tobacco use Current visit: Yes Status: Chronic Category: Medical Code(s): Z72.0 - Tobacco use (6) Diabetes mellitus Current visit: Yes Status: Chronic Qualifiers: Diabetes mellitus type: type 2 Diabetes mellitus long term care administrator insulin use: unspecified senior care insulin use status Diabetes mellitus complication status: with unspecified complications Qualified Code(s): E11.8 - Type 2 diabetes mellitus with unspecified complications Category: Medical Code(s): E11.9 - Type 2 diabetes mellitus without complications (7) COPD exacerbation Current visit: No Status: Chronic Category: Medical Code(s): J44.1 - Chronic obstructive pulmonary disease with (acute) exacerbation (8) History of MRSA infection Current visit: No Status: Chronic Category: Medical Code(s): Z86.14 - Personal history of Methicillin resistant Staphylococcus aureus infection - Assessment and plan all Dx Assessment and Plan for all problems:: Continue IV antibiotics.
--- NOTE | 2018-03-18 08:18 | Progress Note ---
Internal Medicine - PN: Subj *Date: 03/18/18 (n) *Time: 08:14 Interval history: Patient states that he is ready to home. States his cough and breathing are better. He denies pain. He has been up in the room and to the bathroom. Bowels are moving and kidneys are functioning normally. He is eating without difficulty. Exam Vital signs and Labs for Last 24 Hours: Temp Pulse Resp BP Pulse Ox 97.8 F 77 18 152/70 H 92 L 03/18/18 04:00 03/18/18 05:57 03/18/18 04:00 03/18/18 04:00 03/18/18 04:00 Laboratory Results - last 24 hr 03/17/18 11:36: POC Glucose 93 03/17/18 16:49: POC Glucose 79 03/17/18 20:36: POC Glucose 123 H 03/18/18 06:17: POC Glucose 96 I & O for Last 24 hours: Intake & Output 03/15/18 03/16/18 03/17/18 03/18/18 11:59 11:59 11:59 11:59 Intake Total 540 / 540 2662 / 2662 1074 / 1074 Output Total 1300 / 1300 800 / 800 Balance 540 / 540 1362 / 1362 274 / 274 Weight 274 lb 4 oz 273 lb 9 oz 270 lb 2 oz Microbiology Reports for the Last 24 Hours: Microbiology 03/16/18 00:13 Blood Blood Culture - Preliminary Gram Positive Cocci 03/16/18 00:13 Blood Blood Culture - Preliminary Gram Positive Cocci 03/17/18 16:50 Sputum - Expectorated Sputum Gram Stain - Final - Constitutional no acute distress Comments: Sitting on the bedside eating breakfast - *Routine Respiratory Exam Present: CTA bilaterally (Anteriorly and posteriorly) - *Routine Cardiovascular Exam Present: RRR - *Routine Abdominal Exam Present: soft, normoactive bowel sounds. Absent: tenderness - *Routine Extremities Exam Absent: edema, calf tenderness - *Routine Neurological Exam Present: alert, oriented X3 Assessment and Plan (1) Community acquired pneumonia Current visit: Yes Status: Acute Qualifiers: Laterality: right Lung location: lower lobe of lung Qualified Code(s): J18.1 - Lobar pneumonia, unspecified organism Category: Medical Code(s): J18.9 - Pneumonia, unspecified organism (2) H/O: CVA (cerebrovascular accident) Current visit: Yes Status: Chronic Category: Medical Code(s): Z86.73 - Personal history of transient ischemic attack (TIA), and cerebral infarction without residual deficits (3) Obesity (BMI 30-39.9) Current visit: Yes Status: Chronic Category: Medical Code(s): E66.9 - Obesity, unspecified (4) Renal insufficiency Current visit: Yes Status: Chronic Category: Medical Code(s): N28.9 - Disorder of kidney and ureter, unspecified (5) Tobacco use Current visit: Yes Status: Chronic Category: Medical Code(s): Z72.0 - Tobacco use (6) Diabetes mellitus Current visit: Yes Status: Chronic Qualifiers: Diabetes mellitus type: type 2 Diabetes mellitus terminal system operator insulin use: unspecified terminal system operator insulin use status Diabetes mellitus complication status: with unspecified complications Qualified Code(s): E11.8 - Type 2 diabetes mellitus with unspecified complications Category: Medical Code(s): E11.9 - Type 2 diabetes mellitus without complications (7) COPD exacerbation Current visit: No Status: Chronic Category: Medical Code(s): J44.1 - Chronic obstructive pulmonary disease with (acute) exacerbation (8) History of MRSA infection Current visit: No Status: Chronic Category: Medical Code(s): Z86.14 - Personal history of Methicillin resistant Staphylococcus aureus infection (9) Blood bacterial culture positive Current visit: Yes Status: Acute Category: Medical Code(s): R78.81 - Bacteremia (10) Bacteremia Current visit: Yes Status: Acute Category: Medical Code(s): R78.81 - Bacteremia - Assessment and plan all Dx Assessment and Plan for all problems:: Await final blood culture results. Will add vancomycin IV and repeat CBC.
[2018-03-18 09:15] LABS: Basophils # 0.1 K/mm3 (0-0.2); Basophils % 0.7 % (0.1-2.0); Eosinophils # 0.5 K/mm3 (0.0-0.4); Hematocrit 36.9 % (42.0-52.0); Hemoglobin 11.4 g/dL (14.1-18.0); Lymphocytes # 1.7 K/mm3 (0.7-4.5); Lymphocytes % 16.2 % (10-50); Mean Corpuscular HGB Conc 30.8 g/dL (31.8-35.4); Mean Corpuscular Hemoglobin 30.3 pg (27.0-31.2); Mean Corpuscular Volume 98.3 fl (80-94); Mean Platelet Volume 7.2 fl (7.4-10.4); Monocytes # 0.6 K/mm3 (0.1-1.0); Monocytes % 5.5 % (1.7-9.3); Neutrophils # 7.5 K/mm3 (1.8-7.8); Neutrophils % 72.6 % (37.0-80.0); Platelet Count 350 K/mm3 (142-424); Red Blood Count 3.76 M/mm3 (4.60-6.20); Red Cell Distribution Width 13.9 % (11.5-17.5); White Blood Count 10.4 K/mm3 (4.8-10.8)
[2018-03-18 09:29] LABS: Anion Gap 12.6 mEq/L (5-15); Calcium 8.5 mg/dL (8.5-10.1); Potassium 3.6 mmoL/L (3.5-5.1)
--- NOTE | 2018-03-18 09:52 | Pharmacy Consult Notes ---
- Pharmacy Consult Date: 03/18/18 Time: 09:51 Referring provider: DR. PATEL Reason for Consult:: VANCOMYCIN DOSING Allergies and ADEs:: Allergies Allergy/AdvReac Type Severity Reaction Status Date / Time Penicillins [PENICILLINS] Allergy Unknown Verified 03/16/18 00:35 Home Medications:: Home Medications Medication Instructions Recorded Confirmed Type Aspirin [Aspir-Low] 81 mg PO DAILY 12/26/17 03/16/18 History Buspirone HCl 15 mg PO TID 12/26/17 03/16/18 History Cyclobenzaprine HCl 5 mg PO BIDP PRN 12/26/17 03/16/18 History [Cyclobenzaprine 5mg Tab] Divalproex Sodium 250 mg PO TID 12/26/17 03/16/18 History Ferrous Sulfate 325 mg PO TID 12/26/17 03/16/18 History Fluticasone Propionate [Flonase 1 spray IN DAILY 12/26/17 03/16/18 History 50mcg nasal spray 16gm] Gabapentin [Gabapentin 300mg Cap] 300 mg PO TID 12/26/17 03/16/18 History Lisinopril [Lisinopril 40mg Tablet] 40 mg PO DAILY 12/26/17 03/16/18 History Loratadine [Claritin] 10 mg PO DAILY 12/26/17 03/16/18 History Montelukast Sodium [Montelukast 10 mg PO HS 12/26/17 03/16/18 History 10mg Tab] Nitroglycerin [Nitrostat 0.4mg SL 0.4 mg SL [id number] PRN 12/26/17 03/16/18 History Tablet] Pantoprazole Sodium [Pantoprazole 20 mg PO DAILY 12/26/17 03/16/18 History 20mg Tab] Quetiapine Fumarate 300 mg PO HS 12/26/17 03/16/18 History Sertraline HCl [Zoloft 100mg 100 mg PO DAILY 12/26/17 03/16/18 History tablet] Albuterol Sulfate [Albuterol HFA 1 puff INHALATION Q6 PRN 03/16/18 03/16/18 History Inhaler] Budesonide/Formoterol Fumarate 2 puffs IH BID 03/16/18 03/16/18 History [Symbicort 160-4.5 Mcg Inhaler] Ergocalciferol (Vitamin D2) 100,000 unit PO WEEKLY 03/16/18 03/16/18 History [Vitamin D2] Folic Acid [Folic Acid 1mg tablet] 1 mg PO DAILY 03/16/18 03/16/18 History Furosemide [Furosemide 20mg Tab] 20 mg PO DAILY 03/16/18 03/16/18 History Insulin Aspart [Novolog] 0 unit SQ DAILY 03/16/18 03/16/18 History Meclizine HCl [Antivert 25mg 25 mg PO TIDP PRN 03/16/18 03/16/18 History tablet] Potassium Chloride [Pot Chlor 10 10 meq PO DAILY 03/16/18 03/16/18 History mEq Tab] Simvastatin 80 mg PO HS 03/16/18 03/16/18 History guaiFENesin [Mucus Relief] 1 tab PO Q4HP PRN 03/16/18 03/16/18 History Height: 1.83 m Weight: 122.527 kg Laboratory Results:: Laboratory Results - last 24 hr 03/17/18 11:36: POC Glucose 93 03/17/18 16:49: POC Glucose 79 03/17/18 20:36: POC Glucose 123 H 03/18/18 06:17: POC Glucose 96 03/18/18 09:12: WBC 10.4 D, RBC 3.76 L, Hgb 11.4 L, Hct 36.9 L, MCV 98.3 H, MCH 30.3, MCHC 30.8 L, RDW 13.9, Plt Count 350, MPV 7.2 L, Neut % (Auto) 72.6, Lymph % (Auto) 16.2, [place] % (Auto) 5.5, Eos % (Auto) 5.0, Baso % (Auto) 0.7, Neut # (Auto) 7.5, Lymph # (Auto) 1.7, [place] # (Auto) 0.6, Eos # (Auto) 0.5 H, Baso # (Auto) 0.1 03/18/18 09:12: Sodium 137, Potassium 3.6, Chloride 101, Carbon Dioxide 27 D, Anion Gap 12.6, BUN 17 D, Creatinine 1.35 H, Estimated Creat Clear 103, Estimated GFR 54 L, Est GFR ( Amer) 66, Glucose 136 H, Calcium 8.5 Medical History: Reports:: Anxiety, Chronic Obstructive Pulmonary Disease (COPD), Cerebrovascular Accident, Depression, Diabetes Mellitus Type 1, Hypertension, MRSA Denies:: Cancer, Diabetes Mellitus Type 2, Seizures Assessment and Plan (1) Community acquired pneumonia Current visit: Yes Status: Acute Qualifiers: Laterality: right Lung location: lower lobe of lung Qualified Code(s): J18.1 - Lobar pneumonia, unspecified organism Category: Medical Code(s): J18.9 - Pneumonia, unspecified organism (2) H/O: CVA (cerebrovascular accident) Current visit: Yes Status: Chronic Category: Medical Code(s): Z86.73 - Personal history of transient ischemic attack (TIA), and cerebral infarction without residual deficits (3) Obesity (BMI 30-39.9) Current visit: Yes Status: Chronic Category: Medical Code(s): E66.9 - Obesity, unspecified (4) Renal insufficiency Current visit: Yes Status: Chronic Category: Medical Code(s): N28.9 - Disorder of kidney and ureter, unspecified (5) Tobacco use Current visit: Yes Status: Chronic Category: Medical Code(s): Z72.0 - Tobacco use (6) Diabetes mellitus Current visit: Yes Status: Chronic Qualifiers: Diabetes mellitus type: type 2 Diabetes mellitus superintendent [employer] insulin use: unspecified [facility] insulin use status Diabetes mellitus complication status: with unspecified complications Qualified Code(s): E11.8 - Type 2 diabetes mellitus with unspecified complications Category: Medical Code(s): E11.9 - Type 2 diabetes mellitus without complications (7) COPD exacerbation Current visit: No Status: Chronic Category: Medical Code(s): J44.1 - Chronic obstructive pulmonary disease with (acute) exacerbation (8) History of MRSA infection Current visit: No Status: Chronic Category: Medical Code(s): Z86.14 - Personal history of Methicillin resistant Staphylococcus aureus infection (9) Blood bacterial culture positive Current visit: Yes Status: Acute Category: Medical Code(s): R78.81 - Bacteremia (10) Bacteremia Current visit: Yes Status: Acute Category: Medical Code(s): R78.81 - Bacteremia - Assessment and plan all Dx Assessment and Plan for all problems:: BASED ON PATIENT'S FACTORS, RECOMMEND STARTING WITH VANCOMYCIN 2250 MG Q18H AT THIS TIME. WILL OBTAIN TROUGH PRIOR TO 4TH DOSE. [facility] WILL FOLLOW DAILY AND ADJUST APPROPRIATE. RAÚL GRANT, PHARMD
--- NOTE | 2018-03-19 08:34 | Progress Note ---
Internal Medicine - PN: Subj *Date: 03/19/18 *Time: 08:31 Interval history: Patient states he is feeling better this morning he denies any cough or shortness of breath. Denies any pain. He states he slept well last night and ate breakfast. He is anxious to go home. Exam Vital signs and Labs for Last 24 Hours: Temp Pulse Resp BP Pulse Ox 97.9 F 83 19 134/70 93 L 03/19/18 03:30 03/19/18 03:30 03/19/18 03:30 03/19/18 03:30 03/19/18 03:30 Laboratory Results - last 24 hr 03/18/18 09:12: WBC 10.4 D, RBC 3.76 L, Hgb 11.4 L, Hct 36.9 L, MCV 98.3 H, MCH 30.3, MCHC 30.8 L, RDW 13.9, Plt Count 350, MPV 7.2 L, Neut % (Auto) 72.6, Lymph % (Auto) 16.2, [place] % (Auto) 5.5, Eos % (Auto) 5.0, Baso % (Auto) 0.7, Neut # (Auto) 7.5, Lymph # (Auto) 1.7, [place] # (Auto) 0.6, Eos # (Auto) 0.5 H, Baso # (Auto) 0.1 03/18/18 09:12: Sodium 137, Potassium 3.6, Chloride 101, Carbon Dioxide 27 D, Anion Gap 12.6, BUN 17 D, Creatinine 1.35 H, Estimated Creat Clear 103, Estimated GFR 54 L, Est GFR ( Amer) 66, Glucose 136 H, Calcium 8.5 03/18/18 11:30: POC Glucose 109 03/18/18 16:58: POC Glucose 96 03/18/18 20:29: POC Glucose 91 I & O for Last 24 hours: Intake & Output 03/16/18 03/17/18 03/18/18 03/19/18 11:59 11:59 11:59 11:59 Intake Total 540 / 540 2662 / 2662 1674 / 1674 4095 / 4095 Output Total 1300 / 1300 800 / 800 Balance 540 / 540 1362 / 1362 874 / 874 4095 / 4095 Weight 274 lb 4 oz 273 lb 9 oz 270 lb 2 oz 2665 lb Microbiology Reports for the Last 24 Hours: Microbiology 03/16/18 00:13 Blood Blood Culture - Preliminary Gram Positive Cocci 03/16/18 00:13 Blood Blood Culture - Preliminary Gram Positive Cocci - Constitutional no acute distress - *Routine Respiratory Exam Present: CTA bilaterally - *Routine Cardiovascular Exam Present: RRR - *Routine Abdominal Exam Present: soft, normoactive bowel sounds. Absent: tenderness - *Routine Extremities Exam Absent: cyanosis, clubbing, edema Assessment and Plan (1) Community acquired pneumonia Current visit: Yes Status: Acute Qualifiers: Laterality: right Lung location: lower lobe of lung Qualified Code(s): J18.1 - Lobar pneumonia, unspecified organism Category: Medical Code(s): J18.9 - Pneumonia, unspecified organism (2) H/O: CVA (cerebrovascular accident) Current visit: Yes Status: Chronic Category: Medical Code(s): Z86.73 - Personal history of transient ischemic attack (TIA), and cerebral infarction without residual deficits (3) Obesity (BMI 30-39.9) Current visit: Yes Status: Chronic Category: Medical Code(s): E66.9 - Obesity, unspecified (4) Renal insufficiency Current visit: Yes Status: Chronic Category: Medical Code(s): N28.9 - Disorder of kidney and ureter, unspecified (5) Tobacco use Current visit: Yes Status: Chronic Category: Medical Code(s): Z72.0 - Tobacco use (6) Diabetes mellitus Current visit: Yes Status: Chronic Qualifiers: Diabetes mellitus type: type 2 Diabetes mellitus terminal make up operator insulin use: unspecified terminal make up operator insulin use status Diabetes mellitus complication status: with unspecified complications Qualified Code(s): E11.8 - Type 2 diabetes mellitus with unspecified complications Category: Medical Code(s): E11.9 - Type 2 diabetes mellitus without complications (7) COPD exacerbation Current visit: No Status: Chronic Category: Medical Code(s): J44.1 - Chronic obstructive pulmonary disease with (acute) exacerbation (8) History of MRSA infection Current visit: No Status: Chronic Category: Medical Code(s): Z86.14 - Personal history of Methicillin resistant Staphylococcus aureus infection (9) Blood bacterial culture positive Current visit: Yes Status: Acute Category: Medical Code(s): R78.81 - Bacteremia (10) Bacteremia Current visit: Yes Status: Acute Category: Medical Code(s): R78.81 - Bacteremia - Assessment and plan all Dx Assessment and Plan for all problems:: Blood culture is growing out staph. Will await sensitivities. Will discuss further care with Dr. blank.
--- NOTE | 2018-03-20 14:20 | Discharge Summary ---
General - General Admission date:: 03/16/18 Discharge date: 03/19/18 HPI HPI: Mr. Campbell is a 57-year-old male with a history of previous CVA, COPD, morbid obesity, diabetes mellitus, and recent admission 12/26 through 12/28/2017 with pneumonia who presented to [facility] emergency room with shortness of breath. Patient states he has had a nonproductive cough for about a week. He denies having a fever. He states he has fallen 3 times in the last week and last night fell out of bed. He has been eating normally. Patient arrived to his room in early a.m. He does feel somewhat better. Hospital Course Hospital Course: His chest x-ray showed a left lower lobe pneumonia. He was continued on antibiotics and duo nebs. His symptoms improved and he was anxious to go home. He did have a history of MRSA infection. His blood cultures were growing gram- positive cocci, therefore he was started on vancomycin. The patient's final culture was positive for staph epidermidis. His white blood cell count normalized, he was clinically stable, and it was felt that staph epidermidis could be a contamination. He was stable to be discharged home on p.o. Bactrim DS. He was instructed to contact his primary care physician Dr. Jacobs on the day of discharge to arrange follow-up within 1 week. Of note his sputum culture did grow out yeast. Objective Vital signs: Temp Pulse Resp BP Pulse Ox 98.2 F 95 H 18 130/53 L 97 03/19/18 08:00 03/19/18 08:00 03/19/18 08:00 03/19/18 08:00 03/19/18 08:00 Narrative: - Constitutional no acute distress Comments: Sitting on the bedside eating his breakfast - *Routine HEENT Exam Head: Present: normocephalic, atraumatic Eye: Present: PERRL. Absent: conjunctival icterus, scleral injection ENT: Present: mucous membranes moist, oropharynx clear - *Routine Neck Exam Present: supple. Absent: carotid bruit, lymphadenopathy, thyromegaly - *Routine Respiratory Exam Comments: Bibasilar crackles greater on the left - *Routine Cardiovascular Exam Present: RRR Comments: Monitor showing normal sinus rhythm - *Routine Abdominal Exam Present: soft, normoactive bowel sounds. Absent: tenderness, distended - *Routine Extremities Exam Present: edema (Trace). Absent: calf tenderness - *Routine Neurological Exam Present: alert, oriented X3 Results Labs on day of discharge: Labs from last 24 hours 03/19/18 06:03 POC Glucose 98 Preliminary micro results at discharge 03/17/18 16:50 Sputum Culture - Preliminary Sputum - Expectorated Sputum Yeast 03/16/18 00:13 Blood Culture - Preliminary Blood Staphylococcus epidermidis DS: Diagnosis - Discharge Diagnosis (1) Community acquired pneumonia Status: Acute (2) H/O: CVA (cerebrovascular accident) Status: Chronic (3) Obesity (BMI 30-39.9) Status: Chronic (4) Renal insufficiency Status: Chronic (5) Tobacco use Status: Chronic (6) Diabetes mellitus Status: Chronic (7) COPD exacerbation Status: Chronic (8) History of MRSA infection Status: Chronic (9) Blood bacterial culture positive Status: Acute (10) Bacteremia Status: Acute Problem details: D/T Staph epidermidis Discharge Plan - Patient Discharge Instructions ACTIVITY: Limited activity DIET: continue same diet Patient Instructions: DI for Pneumonia -- Adult - Follow up Plan Follow up with: Gina Jacobs [Referring] - (The patient was instructed to contact Dr. Jacobs today to arrange follow-up within the week.) Disposition: Home, [facility] Medications: Home Medications Medication Instructions Recorded Confirmed Type Aspirin [Aspir-Low] 81 mg PO DAILY 12/26/17 03/16/18 History Buspirone HCl 15 mg PO TID 12/26/17 03/16/18 History Cyclobenzaprine HCl 5 mg PO BIDP PRN 12/26/17 03/16/18 History [Cyclobenzaprine 5mg Tab] Divalproex Sodium 250 mg PO TID 12/26/17 03/16/18 History Ferrous Sulfate 325 mg PO TID 12/26/17 03/16/18 History Fluticasone Propionate [Flonase 1 spray IN DAILY 12/26/17 03/16/18 History 50mcg nasal spray 16gm] Gabapentin [Gabapentin 300mg Cap] 300 mg PO TID 12/26/17 03/16/18 History Lisinopril [Lisinopril 40mg Tablet] 40 mg PO DAILY 12/26/17 03/16/18 History Loratadine [Claritin] 10 mg PO DAILY 12/26/17 03/16/18 History Montelukast Sodium [Montelukast 10 mg PO HS 12/26/17 03/16/18 History 10mg Tab] Nitroglycerin [Nitrostat 0.4mg SL 0.4 mg SL [id number] PRN 12/26/17 03/16/18 History Tablet] Pantoprazole Sodium [Pantoprazole 20 mg PO DAILY 12/26/17 03/16/18 History 20mg Tab] Quetiapine Fumarate 300 mg PO HS 12/26/17 03/16/18 History Sertraline HCl [Zoloft 100mg 100 mg PO DAILY 12/26/17 03/16/18 History tablet] Albuterol Sulfate [Albuterol HFA 1 puff INHALATION Q6 PRN 03/16/18 03/16/18 History Inhaler] Budesonide/Formoterol Fumarate 2 puffs IH BID 03/16/18 03/16/18 History [Symbicort 160-4.5 Mcg Inhaler] Ergocalciferol (Vitamin D2) 100,000 unit PO WEEKLY 03/16/18 03/16/18 History [Vitamin D2] Folic Acid [Folic Acid 1mg tablet] 1 mg PO DAILY 03/16/18 03/16/18 History Furosemide [Furosemide 20mg Tab] 20 mg PO DAILY 03/16/18 03/16/18 History Insulin Aspart [Novolog] 0 unit SQ DAILY 03/16/18 03/16/18 History Meclizine HCl [Antivert 25mg 25 mg PO TIDP PRN 03/16/18 03/16/18 History tablet] Potassium Chloride [Pot Chlor 10 10 meq PO DAILY 03/16/18 03/16/18 History mEq Tab] Simvastatin 80 mg PO HS 03/16/18 03/16/18 History guaiFENesin [Mucus Relief] 1 tab PO Q4HP PRN 03/16/18 03/16/18 History Sulfamethoxazole/Trimethoprim 1 each PO BID #20 tablet 03/19/18 Rx [Bactrim DS tablet] Prescriptions/Medication Reconciliation: New Sulfamethoxazole/Trimethoprim [Bactrim DS tablet] 1 each PO BID #20 tablet Continue Divalproex Sodium 250 mg PO TID Pantoprazole Sodium [Pantoprazole 20mg Tab] 20 mg PO DAILY Loratadine [Claritin] 10 mg PO DAILY Aspirin [Aspir-Low] 81 mg PO DAILY Ferrous Sulfate 325 mg PO TID Buspirone HCl 15 mg PO TID Lisinopril [Lisinopril 40mg Tablet] 40 mg PO DAILY Gabapentin [Gabapentin 300mg Cap] 300 mg PO TID Fluticasone Propionate [Flonase 50mcg nasal spray 16gm] 1 spray IN DAILY Quetiapine Fumarate 300 mg PO HS Montelukast Sodium [Montelukast 10mg Tab] 10 mg PO HS guaiFENesin [Mucus Relief] 1 tab PO Q4HP PRN PRN Reason: Cough Budesonide/Formoterol Fumarate [Symbicort 160-4.5 Mcg Inhaler] 2 puffs IH BID Potassium Chloride [Pot Chlor 10 mEq Tab] 10 meq PO DAILY Furosemide [Furosemide 20mg Tab] 20 mg PO DAILY Simvastatin 80 mg PO HS Meclizine HCl [Antivert 25mg tablet] 25 mg PO TIDP PRN PRN Reason: Dizziness Sertraline HCl [Zoloft 100mg tablet] 100 mg PO DAILY Nitroglycerin [Nitrostat 0.4mg SL Tablet] 0.4 mg SL [id number] PRN PRN Reason: Chest Pain Cyclobenzaprine HCl [Cyclobenzaprine 5mg Tab] 5 mg PO BIDP PRN PRN Reason: MUSCLE SPASMS Insulin Aspart [Novolog] 0 unit SQ DAILY Folic Acid [Folic Acid 1mg tablet] 1 mg PO DAILY Albuterol Sulfate [Albuterol HFA Inhaler] 1 puff INHALATION Q6 PRN PRN Reason: SHORTNESS OF AIR Ergocalciferol (Vitamin D2) [Vitamin D2] 100,000 unit PO WEEKLY
== END 2018-03-19 12:49 | disposition home or self-care (01) | DRG 194 ==
LOC: 2ND 00:05 → ER 00:05 → INTOOBSV 02:40 → OBSVTOIN 02:40 → 2ND 02:41
PROVIDERS: ADMIT Family Medicine; ATTEND Family Medicine
CPT/HCPCS: 36415; 71010; 71045; 80048; 80053; 81001; 82009; 82803; 82962; 83605; 83735; 83880; 84443; 84484; 85007; 85025; 85651; 86140; 87040; 87070; 87077; 87186; 87205; 93005; 94640; 94761; 96365; 96367; 99285; G0378; J0456; J3370

== ENCOUNTER 2018-03-29 21:55 | Observation (INO) ==
--- NOTE | 2018-03-29 22:31 | Emergency Department Note ---
ED Disposition Clinical Impression: Hyponatremia Angioedema Qualifiers: Encounter type: initial encounter Qualified Code(s): T78.3XXA - Angioneurotic edema, initial encounter Disposition: Admitted as Observation Condition on Discharge: Good - Critical Care Critical Care Time: No Attestation: On 03/29/18, the high probability of a clinically significant, sudden or life threatening deterioration of the following system(s) required my full and direct attention, intervention and personal management. The time I documented below is in addition to time spent performing reported procedures but includes the following listed in this critical care notation. Medical Decision Making - Medical Records Medical records reviewed: Yes: I reviewed the patient's medical records. - Jasvir Inquiry Pt receiving controlled substance: No Vital Signs: 03/29/18 22:00 03/29/18 22:49 Temperature 98 F Temperature Source Oral Pulse Rate [Left Radial] 71 75 Respiratory Rate 18 18 Blood Pressure [Right Arm] 158/78 H 148/74 H Blood Pressure Mean [Right Arm] 104 98 Blood Pressure Position [Right Arm] Sitting 02 Sat by Pulse Oximetry 99 97 Oxygen Delivery Method Nasal Cannula Nasal Cannula Oxygen Flow Rate (LPM) 3 3 - Lab Data Lab results reviewed: Yes: I reviewed the patient's lab results. Lab Results 03/29/18 22:00: Sodium 127 L, Potassium 4.4, Chloride 94 L, Carbon Dioxide 23, Anion Gap 14.4, BUN 15, Creatinine 1.85 H, Estimated Creat Clear 78, Estimated GFR 38 L, Est GFR ( Amer) 46 L, Glucose 88, Calcium 8.7, Troponin I < 0.02, C-Reactive Protein 2.5 H Result diagrams: 03/29/18 22:00 Orders (Tests/Meds): ED MEDICATIONS Generic Name Dose Route Start Last Admin Trade Name Freq PRN Reason Stop Dose Admin Sodium Chloride 10 ml 03/29/18 22:11 Saline Flush 10ml Syringe IV 04/28/18 22:10 NEEDED PRN Maintain IV Site Discontinued Medications Generic Name Dose Route Start Last Admin Trade Name Freq PRN Reason Stop Dose Admin Famotidine 20 mg 03/29/18 22:08 03/29/18 22:09 Pepcid 20mg/2ml Vial IV 03/29/18 22:09 20 mg ONCE ONE Administration ORDERS Category Date Time Status XR chest portable Stat Exams 01/27/19 22:14 Taken - Radiology Data #1 Image(s): Chest Image Reviewed: Yes I reviewed the patient's radiology image Preliminary Findings: Abnormal (cm) - Physician Consults Physician Consulted: sound Reason -: Admission Allergic React/Insect Bite HPI - General Chief complaint: Allergic Reaction Stated complaint: allergic reaction Time Seen by Provider: 03/29/18 22:05 Mode of Arrival - ED Triage: EMS Source of Information: Patient, EMS, Medical Record Limitations: No Limitations - History of Present Illness HPI narrative: sudden onset of swollen lip and tongue which began tonight - he had been eating - and has hx of lisinopril complaint: allergic reaction Onset (ago): hour(s) Symptoms: lip swelling, tongue swelling Treatment prior to arrival: benadryl, steroids Allergies/Adverse Reactions: Allergies Allergy/AdvReac Type Severity Reaction Status Date / Time Penicillins [PENICILLINS] Allergy Unknown Verified 03/16/18 00:35 Previous Allergic Reaction History: none Severity: moderate - Related Data Home Medications Medication Instructions Recorded Confirmed Aspirin [Aspir-Low] 81 mg PO DAILY 12/26/17 03/16/18 Buspirone HCl 15 mg PO TID 12/26/17 03/16/18 Cyclobenzaprine HCl 5 mg PO BIDP PRN 12/26/17 03/16/18 [Cyclobenzaprine 5mg Tab] Divalproex Sodium 250 mg PO TID 12/26/17 03/16/18 Ferrous Sulfate 325 mg PO TID 12/26/17 03/16/18 Fluticasone Propionate [Flonase 1 spray IN DAILY 12/26/17 03/16/18 50mcg nasal spray 16gm] Gabapentin [Gabapentin 300mg Cap] 300 mg PO TID 12/26/17 03/16/18 Lisinopril [Lisinopril 40mg Tablet] 40 mg PO DAILY 12/26/17 03/16/18 Loratadine [Claritin] 10 mg PO DAILY 12/26/17 03/16/18 Montelukast Sodium [Montelukast 10 mg PO HS 12/26/17 03/16/18 10mg Tab] Nitroglycerin [Nitrostat 0.4mg SL 0.4 mg SL [id number] PRN 12/26/17 03/16/18 Tablet] Pantoprazole Sodium [Pantoprazole 20 mg PO DAILY 12/26/17 03/16/18 20mg Tab] Quetiapine Fumarate 300 mg PO HS 12/26/17 03/16/18 Sertraline HCl [Zoloft 100mg 100 mg PO DAILY 12/26/17 03/16/18 tablet] Albuterol Sulfate [Albuterol HFA 1 puff INHALATION Q6 PRN 03/16/18 03/16/18 Inhaler] Budesonide/Formoterol Fumarate 2 puffs IH BID 03/16/18 03/16/18 [Symbicort 160-4.5 Mcg Inhaler] Ergocalciferol (Vitamin D2) 100,000 unit PO WEEKLY 03/16/18 03/16/18 [Vitamin D2] Folic Acid [Folic Acid 1mg tablet] 1 mg PO DAILY 03/16/18 03/16/18 Furosemide [Furosemide 20mg Tab] 20 mg PO DAILY 03/16/18 03/16/18 Insulin Aspart [Novolog] 0 unit SQ DAILY 03/16/18 03/16/18 Meclizine HCl [Antivert 25mg 25 mg PO TIDP PRN 03/16/18 03/16/18 tablet] Potassium Chloride [Pot Chlor 10 10 meq PO DAILY 03/16/18 03/16/18 mEq Tab] Simvastatin 80 mg PO HS 03/16/18 03/16/18 guaiFENesin [Mucus Relief] 1 tab PO Q4HP PRN 03/16/18 03/16/18 Previous Rx's Medication Instructions Recorded Sulfamethoxazole/Trimethoprim 1 each PO BID #20 tablet 03/19/18 [Bactrim DS tablet] [facility] History - Hepatitis A Screen Drug use history?: No High risk sexual behaviors?: No History of sexually transmitted infection?: No Currently employed?: No Childcare worker?: No Do you have indoor plumbing?: Yes Do you have electricity?: Yes Attestation statement:: This patient has been screened for Hepatitis A risk factors. I have reviewed the patient's past medical history: Yes Medical History: Reports:: Anxiety, Chronic Obstructive Pulmonary Disease (COPD), Cerebrovascular Accident, Depression, Diabetes Mellitus Type 1, Hypertension, MRSA Denies:: Cancer, Diabetes Mellitus Type 2, Seizures Comment: Patient has had a CVA in the past with right-sided residual. Other Surgeries: Yes: EGD, Other (hernia) Amputation: No - Social History Smoking Status: Current every day smoker Tobacco Type: cigarettes # Packs/Day (cigarettes): 1 #Yrs smoked (if former smoker): 30 Alcohol Intake: never Occupational Status: disabled Housing: apartment Household Members: spouse - Psychiatric History Expresses thoughts of harming self/others: None Suicide Plan Description: No Plan Pschychiatric History:: Reports:: Anxiety, Depression, Post Traumatic Stress Disorder Family Hx:: Cancer, Coronary Artery Disease ROS Obtained: Yes All systems reviewed & no additional complaints - Constitutional Constitutional: Denies fever(s) - Eyes Eyes: Denies change in vision - ENT Ears, Nose, Mouth, and Throat: Reports as per HPI, Reports lip swelling, Reports throat swelling - Cardiovascular Cardiovascular: Denies chest pain - Respiratory Respiratory: No cough, No coughing up blood, No wheezing - Gastrointestinal Gastrointestingal: Denies: abdominal pain - Genitourinary Male Genitourinary: Denies hematuria - Integumentary/Breasts Skin/Breast: Denies rash - Neurologic Neurologic: Denies seizure-like activity Physical Exam - General General appearance: alert, in no apparent distress - Head Head exam: normocephalic - Eye Eye exam: Present: PERRL, EOMI. Absent: scleral icterus - ENT ENT exam: Present: mucous membranes moist - Expanded ENT Exam Mouth exam: Present: lip swelling, tongue swelling - Neck Neck exam: Present: trachea midline - Chest Chest inspection: Present: normal inspection - Respiratory Respiratory exam: Present: normal lung sounds bilaterally. Absent: respiratory distress - Cardiovascular Cardiovascular exam: Present: regular rate, systolic murmur - Abdominal Exam Abdominal exam: Present: soft - Extremities Exam Extremities exam: Present: full ROM - Neurological Exam Neurological exam: Present: alert, oriented X3, CN II-XII intact - Psychiatric Psychiatric exam: Present: normal affect - Skin Skin exam: Absent: rash
[2018-03-29 22:46] LABS: Anion Gap 14.4 mEq/L (5-15); Blood Urea Nitrogen 15 mg/dL (7-18); C-Reactive Protein 2.5 mg/L (0.0-0.9); Calcium 8.7 mg/dL (8.5-10.1); Carbon Dioxide 23 mmol/L (21.0-32.0); Chloride 94 mmol/L (98-107); Glucose 88 mg/dL (74-106); Potassium 4.4 mmoL/L (3.5-5.1); Sodium 127 mmol/L (136-145)
[2018-03-29 23:27] LABS: Basophils # 0.1 K/mm3 (0-0.2); Basophils % 0.7 % (0.1-2.0); Eosinophils # 0.7 K/mm3 (0.0-0.4); Eosinophils % 7.1 % (0.1-12.0); Hematocrit 40.6 % (42.0-52.0); Hemoglobin 12.4 g/dL (14.1-18.0); Lymphocytes # 2.9 K/mm3 (0.7-4.5); Lymphocytes % 28.2 % (10-50); Mean Corpuscular HGB Conc 30.5 g/dL (31.8-35.4); Mean Corpuscular Hemoglobin 30.2 pg (27.0-31.2); Mean Corpuscular Volume 99.3 fl (80-94); Mean Platelet Volume 7.4 fl (7.4-10.4); Monocytes # 0.7 K/mm3 (0.1-1.0); Monocytes % 6.9 % (1.7-9.3); Neutrophils # 5.9 K/mm3 (1.8-7.8); Platelet Count 448 K/mm3 (142-424); Red Blood Count 4.09 M/mm3 (4.60-6.20); Red Cell Distribution Width 13.5 % (11.5-17.5); White Blood Count 10.3 K/mm3 (4.8-10.8)
[2018-03-30 07:19] LABS: Anion Gap 14.9 mEq/L (5-15); Calcium 8.4 mg/dL (8.5-10.1); Potassium 5.9 mmoL/L (3.5-5.1)
[2018-03-30 07:25] LABS: Basophils % 0.2 % (0.1-2.0); Eosinophils % 0.2 % (0.1-12.0); Hematocrit 39.6 % (42.0-52.0); Hemoglobin 12.3 g/dL (14.1-18.0); Lymphocytes # 0.7 K/mm3 (0.7-4.5); Lymphocytes % 5.9 % (10-50); Mean Corpuscular HGB Conc 31.1 g/dL (31.8-35.4); Mean Corpuscular Hemoglobin 30.5 pg (27.0-31.2); Mean Corpuscular Volume 97.9 fl (80-94); Monocytes # 0.2 K/mm3 (0.1-1.0); Monocytes % 1.6 % (1.7-9.3); Neutrophils # 10.3 K/mm3 (1.8-7.8); Neutrophils % 92.1 % (37.0-80.0); Platelet Count 401 K/mm3 (142-424); Red Blood Count 4.05 M/mm3 (4.60-6.20); Red Cell Distribution Width 13.4 % (11.5-17.5); White Blood Count 11.1 K/mm3 (4.8-10.8)
--- NOTE | 2018-03-30 07:27 | Pharmacy Consult Notes ---
[facility] Pharmacy VTE Monitoring - Patient Demographics Admission date: 03/29/18 Report Date: 03/30/18 Time: 07:27 Allergies/Adverse Reactions: Patient Allergies Penicillins [PENICILLINS] Allergy (Unknown, Verified 03/16/18 00:35) Height: 1.83 m Weight: 124.086 kg Patient Problems: Current Active Problems Angioedema (Acute) Hyponatremia (Acute) - VTE Risk Labs: VTE Related Lab Results Hgb 12.4 g/dL (14.1-18.0) L 03/29/18 22:00 Hct 40.6 % (42.0-52.0) L 03/29/18 22:00 Plt Count 448 K/mm3 (142-424) H 03/29/18 22:00 BUN 16 mg/dL (7-18) 03/30/18 06:30 Creatinine 1.76 mg/dL (0.70-1.30) H 03/30/18 06:30 Estimated Creat Clear 80 mL/min (50-200) 03/30/18 06:30 VTE Score: 8 VTE Risk Level: Moderate Risk - Prophylaxis VTE Prophylaxis Ordered?: Yes Types of VTE Prophylaxis: TEDS Knee High Location of Applied Device: Bilateral Lower Extremeties - VTE Diagnosis Confirmed Treatment or plan recommended: Continue Current Treatment
[2018-03-30 08:43] LABS: Lymphocytes % 7 % (10-50); Neutrophils % 93 % (42-76); RBC Morphology Normal; Total Cells Counted 100
--- NOTE | 2018-03-30 08:49 | History & Physical Report ---
*Admission Date: 03/29/18 <FrankyKendra - 03/30/18 08:48> *Chief complaint: Swelling of throat and face. <Kendra Wilkins 03/30/18 08:48> *History of present illness: Mr. Campbell is a 57-year-old male with a history of previous CVA, COPD, morbid obesity, diabetes mellitus, and recent admissions 12/26 through 12/28/2017 and 03/16 through 03/19/2018 with pneumonia who presented to [facility] emergency room with swelling of his lips and throat which started about 7:30 PM last evening.. He states he was also having difficulty swallowing. He denies having any rash. He denies chest pain, shortness of breath, and cough. Deborah noodles for dinner with lemonade drink. He states he had no other food intake prior to the initiation of the swelling. He took his routine medicines plus his antibiotic around 3 PM yesterday afternoon. He was evaluated in the emergency room and given IV Pepcid. He is on scheduled Solu-Medrol every 6 hours well. He was admitted for observation. This a.m. he states the swelling is much better. He has no difficulty in breath ing or swallowing. He feels that his lips are less swollen. <Kendra Wilkins 03/30/18 09:05> [facility] History Medical History: Reports:: Anxiety, Chronic Obstructive Pulmonary Disease (COPD), Coronary Artery Disease, Cerebrovascular Accident, Depression, Diabetes Mellitus Type 1, Diabetes Mellitus Type 2 (Pt states he is diabetic type 2), Hypertension, MRSA Denies:: Cancer, Seizures <Kendra Wilkins 03/30/18 08:48> Have you ever received a pneumonia vaccine?: Yes <Kendra Wilkins 03/30/18 08:48> Have you received a flu vaccine this season?: Yes <Kendra Wilkins 03/30/18 08:48> Other Medical History: Reports: Anemia, Arthritis, Cataracts <Kendra Wilkins 03/30/18 08:48> Other Surgeries: Yes: Colonoscopy, EGD, Hernia Repair, Other (hernia) <Kendra Wilkins 03/30/18 08:48> Amputation: No <Kendra Wilkins 03/30/18 08:48> - *Social History Educational Level: Attended Grade School <Kendra Wilkins 03/30/18 08:48> Smoking Status: Current every day smoker <Kendra Wilkins 03/30/18 08:48> Tobacco Type: cigarettes <Kendra Wilkins 03/30/18 08:48> # Packs/Day (cigarettes): 1 <Kendra Wilkins 03/30/18 08:48> #Yrs smoked (if former smoker): 30 <Kendra Wilkins 03/30/18 08:48> Alcohol Intake: never <Kendra Wilkins 03/30/18 08:48> Occupational Status: disabled <Kendra Wilkins 03/30/18 08:48> Housing: apartment <Kendra Wilkins 03/30/18 08:48> Household Members: spouse <Kendra Wilkins 03/30/18 08:48> Travel in the last 8 weeks: None <Kendra Wilkins 03/30/18 08:48> - Psychiatric History Expresses thoughts of harming self/others: None <Kendra Wilkins 03/30/18 08:48> Suicide Plan Description: No Plan <Kendra Wilkins 03/30/18 08:48> Pschychiatric History:: Reports:: Anxiety, Depression, Post Traumatic Stress Disorder <Kendra Wilkins 03/30/18 08:48> *Family Hx:: Cancer, Coronary Artery Disease, Hyperlipidemia, Hypertension, Stroke <Kendra Wilkins 03/30/18 08:48> Review of Systems - Constitutional Denies chills, Denies fever(s), Denies headache(s) <FrankyKendra 03/30/18 09:05> - ENT Reports dizziness, Reports difficulty swallowing, Reports lip swelling, Reports tongue swelling, Reports dizziness, Denies ear pain, Denies facial pain, Denies headache(s), Denies nasal congestion, Denies sore throat <FrankyKendra 03/30/18 09:05> - *Cardiovascular Denies chest pain, Denies shortness of breath <WilkinsKendra 03/30/18 09:05> - *Respiratory Denies chest congestion, Denies cough, Denies shortness of breath <WilkinsKendra 03/30/18 09:05> - *Gastrointestinal Denies abdominal pain, Denies constipation, Denies heartburn, Denies nausea, Denies vomiting <Kendra Wilkins 03/30/18 09:05> - *Genitourinary Denies difficulty urinating <Kendra Wilkins 03/30/18 09:05> - *Musculoskeletal Reports abnormal walking <Kendra Wilkins 03/30/18 09:05> Comments: Continues to have falls at home. He states he leans to the left and loses his balance and then falls. This is with using his walker <Kendra Wilkins 03/30/18 09:05> - *Neurologic Reports abnormal walking, Reports unsteadiness, Reports dizziness, Reports lack of coordination, Denies confusion, Denies seizure-like activity <Kendra Wilkins 03/30/18 09:05> Meds Home Medications Medication Instructions Recorded Confirmed Type RX: Aspirin [Aspir-Low] 81 mg PO DAILY 12/26/17 03/30/18 History RX: Buspirone HCl 15 mg PO TID 12/26/17 03/30/18 History RX: Cyclobenzaprine HCl 5 mg PO BIDP PRN 12/26/17 03/30/18 History [Cyclobenzaprine 5mg Tab] RX: Divalproex Sodium 250 mg PO TID 12/26/17 03/30/18 History RX: Ferrous Sulfate 325 mg PO TID 12/26/17 03/16/18 History RX: Fluticasone Propionate 1 spray IN DAILY 12/26/17 03/30/18 History [Flonase 50mcg nasal spray 16gm] RX: Gabapentin [Gabapentin 300mg 300 mg PO TID 12/26/17 03/30/18 History Cap] RX: Loratadine [Claritin] 10 mg PO DAILY 12/26/17 03/30/18 History RX: Montelukast Sodium 10 mg PO HS 12/26/17 03/30/18 History [Montelukast 10mg Tab] RX: Nitroglycerin [Nitrostat 0.4mg 0.4 mg SL [id number] PRN 12/26/17 03/16/18 History SL Tablet] RX: Pantoprazole Sodium 20 mg PO DAILY 12/26/17 03/30/18 History [Pantoprazole 20mg Tab] RX: Quetiapine Fumarate 300 mg PO HS 12/26/17 03/30/18 History RX: Sertraline HCl [Zoloft 100mg 100 mg PO DAILY 12/26/17 03/30/18 History tablet] RX: Albuterol Sulfate [Albuterol 1 puff INHALATION Q6 PRN 03/16/18 03/30/18 History HFA Inhaler] RX: Budesonide/Formoterol Fumarate 2 puffs IH BID 03/16/18 03/30/18 History [Symbicort 160-4.5 Mcg Inhaler] RX: Ergocalciferol (Vitamin D2) 100,000 unit PO WEEKLY 03/16/18 03/30/18 History [Vitamin D2] RX: Folic Acid [Folic Acid 1mg 1 mg PO DAILY 03/16/18 03/30/18 History tablet] RX: Furosemide [Furosemide 20mg 20 mg PO DAILY 03/16/18 03/30/18 History Tab] RX: Insulin Aspart [Novolog] 0 unit SQ DAILY 03/16/18 03/30/18 History RX: Meclizine HCl [Antivert 25mg 25 mg PO TIDP PRN 03/16/18 03/30/18 History tablet] RX: Potassium Chloride [Pot Chlor 10 meq PO DAILY 03/16/18 03/30/18 History 10 mEq Tab] RX: Simvastatin 80 mg PO HS 03/16/18 03/30/18 History RX: guaiFENesin [Mucus Relief] 1 tab PO Q4HP PRN 03/16/18 03/30/18 History Clindamycin HCl [Clindamycin HCl 300 mg PO Q8 7 Days #21 cap 03/30/18 Rx 300mg Cap] RX: Amlodipine Besylate 10 mg PO DAILY 30 Days #30 tablet 03/30/18 Rx <Heidy Monroy 03/30/18 11:42> Allergies Allergy/AdvReac Type Severity Reaction Status Date / Time Penicillins [PENICILLINS] Allergy Unknown Verified 03/16/18 00:35 <Heidy Monroy 03/30/18 11:42> Exam Vital signs and Labs for Last 24 Hours: Temp Pulse Resp BP Pulse Ox 97.7 F 70 16 148/88 H 99 03/30/18 08:00 03/30/18 08:00 03/30/18 08:00 03/30/18 08:00 03/30/18 08:00 Laboratory Results - last 24 hr 03/29/18 22:00: Sodium 127 L, Potassium 4.4, Chloride 94 L, Carbon Dioxide 23, Anion Gap 14.4, BUN 15, Creatinine 1.85 H, Estimated Creat Clear 78, Estimated GFR 38 L, Est GFR ( Amer) 46 L, Glucose 88, Calcium 8.7, Troponin I < 0.02, C-Reactive Protein 2.5 H 03/29/18 22:00: WBC 10.3, RBC 4.09 L, Hgb 12.4 L, Hct 40.6 L, MCV 99.3 H, MCH 30.2, MCHC 30.5 L, RDW 13.5, Plt Count 448 H, MPV 7.4, Neut % (Auto) 57.0, Lymph % (Auto) 28.2, [place] % (Auto) 6.9, Eos % (Auto) 7.1, Baso % (Auto) 0.7, Neut # (Auto) 5.9, Lymph # (Auto) 2.9, [place] # (Auto) 0.7, Eos # (Auto) 0.7 H, Baso # (Auto) 0.1 03/30/18 06:20: POC Glucose 146 H 03/30/18 06:30: WBC 11.1 H, RBC 4.05 L, Hgb 12.3 L, Hct 39.6 L, MCV 97.9 H, MCH 30.5, MCHC 31.1 L, RDW 13.4, Plt Count 401, MPV 8.0, Neut % (Auto) 92.1 H, Lymph % (Auto) 5.9 L, [place] % (Auto) 1.6 L, Eos % (Auto) 0.2, Baso % (Auto) 0.2, Neut # (Auto) 10.3 H, Lymph # (Auto) 0.7, [place] # (Auto) 0.2, Eos # (Auto) 0.0, Baso # (Auto) 0.0, Total Counted 100, Neutrophils % (Manual) 93 H, Lymphocytes % (Manual) 7 L, Platelet Estimate Normal, RBC Morphology Normal 03/30/18 06:30: Sodium 126 L, Potassium 5.9 H D, Chloride 96 L, Carbon Dioxide 21, Anion Gap 14.9, BUN 16, Creatinine 1.76 H, Estimated Creat Clear 80, Estimated GFR 40 L, Est GFR ( Amer) 48 L, Glucose 164 H D, Calcium 8.4 L, Magnesium 1.6 03/30/18 11:26: POC Glucose 118 H <Sound,Heidy - 03/30/18 11:42> Temp Pulse Resp BP Pulse Ox 97.7 F 70 16 148/88 H 99 03/30/18 08:00 03/30/18 08:00 03/30/18 08:00 03/30/18 08:00 03/30/18 08:00 Laboratory Results - last 24 hr 03/29/18 22:00: Sodium 127 L, Potassium 4.4, Chloride 94 L, Carbon Dioxide 23, Anion Gap 14.4, BUN 15, Creatinine 1.85 H, Estimated Creat Clear 78, Estimated GFR 38 L, Est GFR ( Amer) 46 L, Glucose 88, Calcium 8.7, Troponin I < 0.02, C-Reactive Protein 2.5 H 03/29/18 22:00: WBC 10.3, RBC 4.09 L, Hgb 12.4 L, Hct 40.6 L, MCV 99.3 H, MCH 30.2, MCHC 30.5 L, RDW 13.5, Plt Count 448 H, MPV 7.4, Neut % (Auto) 57.0, Lymph % (Auto) 28.2, [place] % (Auto) 6.9, Eos % (Auto) 7.1, Baso % (Auto) 0.7, Neut # (Auto) 5.9, Lymph # (Auto) 2.9, [place] # (Auto) 0.7, Eos # (Auto) 0.7 H, Baso # (Auto) 0.1 03/30/18 06:20: POC Glucose 146 H 03/30/18 06:30: WBC 11.1 H, RBC 4.05 L, Hgb 12.3 L, Hct 39.6 L, MCV 97.9 H, MCH 30.5, MCHC 31.1 L, RDW 13.4, Plt Count 401, MPV 8.0, Neut % (Auto) 92.1 H, Lymph % (Auto) 5.9 L, [place] % (Auto) 1.6 L, Eos % (Auto) 0.2, Baso % (Auto) 0.2, Neut # (Auto) 10.3 H, Lymph # (Auto) 0.7, [place] # (Auto) 0.2, Eos # (Auto) 0.0, Baso # (Auto) 0.0, Total Counted 100, Neutrophils % (Manual) 93 H, Lymphocytes % (Manual) 7 L, Platelet Estimate Normal, RBC Morphology Normal 03/30/18 06:30: Sodium 126 L, Potassium 5.9 H D, Chloride 96 L, Carbon Dioxide 21, Anion Gap 14.9, BUN 16, Creatinine 1.76 H, Estimated Creat Clear 80, Estimated GFR 40 L, Est GFR ( Amer) 48 L, Glucose 164 H D, Calcium 8.4 L, Magnesium 1.6 <Kendra Wilkins 03/30/18 08:48> I & O for Last 24 hours: Intake & Output 03/27/18 03/28/18 03/29/18 03/30/18 11:59 11:59 11:59 11:59 Intake Total 801 / 801 Balance 801 / 801 Weight 273 lb 9 oz <Heidy Monroy - 03/30/18 11:42> Intake & Output 03/27/18 03/28/18 03/29/18 03/30/18 11:59 11:59 11:59 11:59 Intake Total 801 / 801 Balance 801 / 801 Weight 273 lb 9 oz <Kendra Wilkins 03/30/18 08:48> Radiology Reports for the Last 24 Hours: 03/29/2018 chest x-ray IMPRESSION: No acute finding <Kendra Wilkins 03/30/18 09:05> - Constitutional no acute distress <Kendra Wilkins 03/30/18 09:05> Comments: Sitting on the bedside eating his breakfast. He is eating everything on the tray. <Kendra Wilkins 03/30/18 09:05> - *Routine HEENT Exam Head: Present: normocephalic, atraumatic, facial swelling (Lips remain edematous) <Kendra Wilkins 03/30/18 09:05> Eye: Present: PERRL <Kendra Wilkins 03/30/18 09:05> ENT: Present: mucous membranes moist <Kendra Wilkins 03/30/18 09:05> - *Routine Neck Exam Present: supple, full ROM. Absent: carotid bruit, lymphadenopathy, thyromegaly <Kendra Wilkins 03/30/18 09:05> - *Routine Respiratory Exam Present: CTA bilaterally (Anteriorly and posteriorly) <Kendra Wilkins 03/30/18 09:05> - *Routine Cardiovascular Exam Present: RRR <Kendra Wilkins 03/30/18 09:05> - *Routine Abdominal Exam Present: soft, normoactive bowel sounds. Absent: tenderness <Kendra Wilkins 03/30/18 09:05> - *Routine Extremities Exam Present: edema (1-2+) <Kendra Wilkins 03/30/18 09:05> - *Routine Skin Exam Comments: Abrasion noted on right hip <Kendra Wilkins 03/30/18 09:05> - *Routine Neurological Exam Present: alert, oriented X3 <Kendra Wilkins 03/30/18 09:05> Assessment and Plan (1) Hyperkalemia Current visit: Yes Status: Acute Category: Medical Code(s): E87.5 - Hyperkalemia (2) Angioedema Current visit: Yes Status: Acute Qualifiers: Encounter type: initial encounter Qualified Code(s): T78.3XXA - Angioneurotic edema, initial encounter Category: Medical Code(s): T78.3XXA - Angioneurotic edema, initial encounter (3) Hyponatremia Current visit: Yes Status: Acute Category: Medical Code(s): E87.1 - Hypo- osmolality and hyponatremia (4) Diabetes mellitus Current visit: No Status: Chronic Qualifiers: Diabetes mellitus type: type 2 Diabetes mellitus fdc insulin use: unspecified fdc insulin use status Diabetes mellitus complication status: with unspecified complications Qualified Code(s): E11.8 - Type 2 diabetes mellitus with unspecified complications Category: Medical Code(s): E11.9 - Type 2 diabetes mellitus without complications <Kendra Wilkins 03/30/18 08:56> (1) Hyperkalemia Current visit: Yes Status: Acute Category: Medical Code(s): E87.5 - Hyperkalemia (2) Angioedema Current visit: Yes Status: Acute Qualifiers: Encounter type: initial encounter Qualified Code(s): T78.3XXA - Angioneurotic edema, initial encounter Category: Medical Code(s): T78.3XXA - Angioneurotic edema, initial encounter (3) Hyponatremia Current visit: Yes Status: Acute Category: Medical Code(s): E87.1 - Hypo- osmolality and hyponatremia (4) Diabetes mellitus Current visit: No Status: Chronic Qualifiers: Diabetes mellitus type: type 2 Diabetes mellitus fdc insulin use: unspecified fdc insulin use status Diabetes mellitus complication status: with unspecified complications Qualified Code(s): E11.8 - Type 2 diabetes mellitus with unspecified complications Category: Medical Code(s): E11.9 - Type 2 diabetes mellitus without complications <Heidy Monroy - 03/30/18 11:42> - Assessment and plan all Dx Assessment and Plan for all problems:: Will change his BP medication from Lisinopril to Norvasc as his angioedema is secondary to probably lisinopril. I also educated the patient at beside about not taking any more of JANES or ARBs. He voiced understanding. I also chnaged his abx to clindamycin. <Heidy Monroy - 03/30/18 11:42> Patient has improved since admission. Will discuss with Dr. Monroy. Possibly home today. <Kendra Wilkins - 03/30/18 09:05>
--- NOTE | 2018-03-30 13:41 | Discharge Summary ---
General - General Admission date:: 03/29/18 <ElianaHeidy - 03/31/18 12:41> 03/29/18 <WilkinsKendra - 03/30/18 13:45> Discharge date: 03/30/18 <Kendra Wilkins - 03/30/18 13:45> HPI HPI: Mr. Campbell is a 57-year-old male with a history of previous CVA, COPD, morbid obesity, diabetes mellitus, and recent admissions 12/26 through 12/28/2017 and 03/16 through 03/19/2018 with pneumonia who presented to [facility] emergency room with swelling of his lips and throat which started about 7:30 PM last evening.. He states he was also having difficulty swallowing. He denies having any rash. He denies chest pain, shortness of breath, and cough. Deborah noodles for dinner with lemonade drink. He states he had no other food intake prior to the initiation of the swelling. He took his routine medicines plus his antibiotic around 3 PM yesterday afternoon. He was evaluated in the emergency room and given IV Pepcid. He is on scheduled Solu-Medrol every 6 hours well. He was admitted for observation. This a.m. he states the swelling is much better. He has no difficulty in breathing or swallowing. He feels that his lips are less swollen. <Kendra Wilkins - 03/30/18 13:45> Hospital Course Hospital Course: Agree with above. I advised patient not to take any ACEIs or ARBs at this time and switched his BP medication to Norvasc at this time. I also changed his abx to clindamycin to prevent any further worsening of his allergic reactions. <ElianaHeidy - 03/31/18 12:41> After admission patient received 2 doses of Solu-Medrol. He did sleep some during the night. This a.m. patient feels the swelling of his lips is less and he has no difficulty with breathing or swallowing. He denies chest pain and shortness of breath. He was able to ambulate to the bathroom without any problems. See lab results. Patient was stable to be discharged home. Dr. Monroy instructed him to not take any further JANES inhibitors or arms. Lisinopril was discontinued. Sulfa drugs was changed to clindamycin. He was to follow-up with his primary care physician this week. Patient's condition was stable and satisfactory at discharge. See discharge instructions <Kendra Wilkins - 03/30/18 13:45> Objective Vital signs: Temp Pulse Resp BP Pulse Ox 97.7 F 70 16 148/88 H 99 03/30/18 08:00 03/30/18 08:00 03/30/18 08:00 03/30/18 08:00 03/30/18 08:00 <Heidy Monroy - 03/31/18 12:41> Temp Pulse Resp BP Pulse Ox 97.7 F 70 16 148/88 H 99 03/30/18 08:00 03/30/18 08:00 03/30/18 08:00 03/30/18 08:00 03/30/18 08:00 <Kendra Wilkins - 03/30/18 13:45> Narrative: This a.m. patient was alert and oriented and in no acute distress. He was sitting on the bedside completing his breakfast. Heart was regular rate and rhythm. Lungs sounded clear to auscultation bilaterally A&P. Patient's lips did look a little edematous. He had bilateral leg edema. <Kendra Wilkins - 03/30/18 13:45> Results Labs on day of discharge: Labs from last 24 hours 03/30/18 03/30/18 03/30/18 11:26 06:30 06:30 WBC 11.1 H RBC 4.05 L Hgb 12.3 L Hct 39.6 L MCV 97.9 H MCH 30.5 MCHC 31.1 L RDW 13.4 Plt Count 401 MPV 8.0 Neut % (Auto) 92.1 H Lymph % (Auto) 5.9 L [place] % (Auto) 1.6 L Eos % (Auto) 0.2 Baso % (Auto) 0.2 Neut # (Auto) 10.3 H Lymph # (Auto) 0.7 [place] # (Auto) 0.2 Eos # (Auto) 0.0 Baso # (Auto) 0.0 Total Counted 100 Neutrophils % (Manual) 93 H Lymphocytes % (Manual) 7 L Platelet Estimate Normal RBC Morphology Normal Sodium 126 L Potassium 5.9 H D Chloride 96 L Carbon Dioxide 21 Anion Gap 14.9 BUN 16 Creatinine 1.76 H Estimated Creat Clear 80 Estimated GFR 40 L Est GFR ( Amer) 48 L Glucose 164 H D POC Glucose 118 H Calcium 8.4 L Magnesium 1.6 Troponin I C-Reactive Protein 03/30/18 03/29/18 03/29/18 06:20 22:00 22:00 WBC 10.3 RBC 4.09 L Hgb 12.4 L Hct 40.6 L MCV 99.3 H MCH 30.2 MCHC 30.5 L RDW 13.5 Plt Count 448 H MPV 7.4 Neut % (Auto) 57.0 Lymph % (Auto) 28.2 [place] % (Auto) 6.9 Eos % (Auto) 7.1 Baso % (Auto) 0.7 Neut # (Auto) 5.9 Lymph # (Auto) 2.9 [place] # (Auto) 0.7 Eos # (Auto) 0.7 H Baso # (Auto) 0.1 Total Counted Neutrophils % (Manual) Lymphocytes % (Manual) Platelet Estimate RBC Morphology Sodium 127 L Potassium 4.4 Chloride 94 L Carbon Dioxide 23 Anion Gap 14.4 BUN 15 Creatinine 1.85 H Estimated Creat Clear 78 Estimated GFR 38 L Est GFR ( Amer) 46 L Glucose 88 POC Glucose 146 H Calcium 8.7 Magnesium Troponin I < 0.02 C-Reactive Protein 2.5 H <Kendra Wilkins 03/30/18 13:45> DS: Diagnosis - Discharge Diagnosis (1) Hyperkalemia Status: Acute (2) Angioedema Status: Acute (3) Hyponatremia Status: Acute (4) Diabetes mellitus Status: Chronic <Kendra Wilkins 03/30/18 13:38> (1) Hyperkalemia Status: Acute (2) Angioedema Status: Acute (3) Hyponatremia Status: Acute (4) Diabetes mellitus Status: Chronic <Heidy Monroy 03/31/18 12:41> Discharge Plan - Patient Discharge Instructions ACTIVITY: Continue current activity <Kendra Wilkins 03/30/18 13:45> DIET: continue same diet <Kendra Wilkins 03/30/18 13:45> Patient Instructions: DI for Angioedema, DI for Hyponatremia <Heidy Monroy 03/31/18 12:41> Forms: <Heidy Monroy 03/31/18 12:41> - Follow up Plan Follow up with: <Heidy Monroy 03/31/18 12:41> Unknown provider or service follow up:: 03/30/18 09:18 PCP in [place] in 1 week <Kendra Wilkins - 03/30/18 13:45> Disposition: Home, Self-Care <Heidy Monroy - 03/31/18 12:41> Home Medications: Home Medications Medication Instructions Recorded Confirmed Type RX: Aspirin [Aspir-Low] 81 mg PO DAILY 12/26/17 03/30/18 History RX: Buspirone HCl 15 mg PO TID 12/26/17 03/30/18 History RX: Cyclobenzaprine HCl 5 mg PO BIDP PRN 12/26/17 03/30/18 History [Cyclobenzaprine 5mg Tab] RX: Divalproex Sodium 250 mg PO TID 12/26/17 03/30/18 History RX: Ferrous Sulfate 325 mg PO TID 12/26/17 03/16/18 History RX: Fluticasone Propionate 1 spray IN DAILY 12/26/17 03/30/18 History [Flonase 50mcg nasal spray 16gm] RX: Gabapentin [Gabapentin 300mg 300 mg PO TID 12/26/17 03/30/18 History Cap] RX: Loratadine [Claritin] 10 mg PO DAILY 12/26/17 03/30/18 History RX: Montelukast Sodium 10 mg PO HS 12/26/17 03/30/18 History [Montelukast 10mg Tab] RX: Nitroglycerin [Nitrostat 0.4mg 0.4 mg SL [id number] PRN 12/26/17 03/16/18 History SL Tablet] RX: Pantoprazole Sodium 20 mg PO DAILY 12/26/17 03/30/18 History [Pantoprazole 20mg Tab] RX: Quetiapine Fumarate 300 mg PO HS 12/26/17 03/30/18 History RX: Sertraline HCl [Zoloft 100mg 100 mg PO DAILY 12/26/17 03/30/18 History tablet] RX: Albuterol Sulfate [Albuterol 1 puff INHALATION Q6 PRN 03/16/18 03/30/18 History HFA Inhaler] RX: Budesonide/Formoterol Fumarate 2 puffs IH BID 03/16/18 03/30/18 History [Symbicort 160-4.5 Mcg Inhaler] RX: Ergocalciferol (Vitamin D2) 100,000 unit PO WEEKLY 03/16/18 03/30/18 History [Vitamin D2] RX: Folic Acid [Folic Acid 1mg 1 mg PO DAILY 03/16/18 03/30/18 History tablet] RX: Furosemide [Furosemide 20mg 20 mg PO DAILY 03/16/18 03/30/18 History Tab] RX: Insulin Aspart [Novolog] 0 unit SQ DAILY 03/16/18 03/30/18 History RX: Meclizine HCl [Antivert 25mg 25 mg PO TIDP PRN 03/16/18 03/30/18 History tablet] RX: Potassium Chloride [Pot Chlor 10 meq PO DAILY 03/16/18 03/30/18 History 10 mEq Tab] RX: Simvastatin 80 mg PO HS 03/16/18 03/30/18 History RX: guaiFENesin [Mucus Relief] 1 tab PO Q4HP PRN 03/16/18 03/30/18 History Clindamycin HCl [Clindamycin HCl 300 mg PO Q8 7 Days #21 cap 03/30/18 Rx 300mg Cap] RX: Amlodipine Besylate 10 mg PO DAILY 30 Days #30 tablet 03/30/18 Rx <Heidy Monroy - 03/31/18 12:41> Prescriptions/Medication Reconciliation: New RX: Amlodipine Besylate 10 mg PO DAILY 30 Days #30 tablet Clindamycin HCl [Clindamycin HCl 300mg Cap] 300 mg PO Q8 7 Days #21 cap Continue RX: Divalproex Sodium 250 mg PO TID RX: Pantoprazole Sodium [Pantoprazole 20mg Tab] 20 mg PO DAILY RX: Loratadine [Claritin] 10 mg PO DAILY RX: Aspirin [Aspir-Low] 81 mg PO DAILY RX: Ferrous Sulfate 325 mg PO TID RX: Buspirone HCl 15 mg PO TID RX: Gabapentin [Gabapentin 300mg Cap] 300 mg PO TID RX: Fluticasone Propionate [Flonase 50mcg nasal spray 16gm] 1 spray IN DAILY RX: Quetiapine Fumarate 300 mg PO HS RX: Montelukast Sodium [Montelukast 10mg Tab] 10 mg PO HS RX: guaiFENesin [Mucus Relief] 1 tab PO Q4HP PRN PRN Reason: Cough RX: Budesonide/Formoterol Fumarate [Symbicort 160-4.5 Mcg Inhaler] 2 puffs IH BID RX: Potassium Chloride [Pot Chlor 10 mEq Tab] 10 meq PO DAILY RX: Furosemide [Furosemide 20mg Tab] 20 mg PO DAILY RX: Simvastatin 80 mg PO HS RX: Meclizine HCl [Antivert 25mg tablet] 25 mg PO TIDP PRN PRN Reason: Dizziness RX: Sertraline HCl [Zoloft 100mg tablet] 100 mg PO DAILY RX: Nitroglycerin [Nitrostat 0.4mg SL Tablet] 0.4 mg SL [id number] PRN PRN Reason: Chest Pain RX: Cyclobenzaprine HCl [Cyclobenzaprine 5mg Tab] 5 mg PO BIDP PRN PRN Reason: MUSCLE SPASMS RX: Insulin Aspart [Novolog] 0 unit SQ DAILY RX: Folic Acid [Folic Acid 1mg tablet] 1 mg PO DAILY RX: Albuterol Sulfate [Albuterol HFA Inhaler] 1 puff INHALATION Q6 PRN PRN Reason: SHORTNESS OF AIR RX: Ergocalciferol (Vitamin D2) [Vitamin D2] 100,000 unit PO WEEKLY Discontinued RX: Lisinopril [Lisinopril 40mg Tablet] 40 mg PO DAILY Sulfamethoxazole/Trimethoprim [Bactrim DS tablet] 1 each PO BID <Heidy oMnroy - 03/31/18 12:41>
== END 2018-03-30 15:57 | disposition home or self-care (01) ==
LOC: 2ND 21:55 → ER 21:55 → 2ND 23:54
PROVIDERS: ADMIT Emergency Medicine; ATTEND Emergency Medicine
DX: E11.9 Type 2 diabetes mellitus without complications; Z72.0 Tobacco use; I69.354 Hemiplegia and hemiparesis following cerebral infarction affecting left non-dominant side; T78.3XXA Angioneurotic edema, initial encounter; Z88.0 Allergy status to penicillin; J44.9 Chronic obstructive pulmonary disease, unspecified; T46.4X5A Adverse effect of angiotensin-converting-enzyme inhibitors, initial encounter
CPT/HCPCS: 36415; 71010; 71045; 80048; 82962; 83735; 84484; 85007; 85025; 86140; 96374; 99284; G0378

== ENCOUNTER 2018-04-10 15:39 | Inpatient (IN) ==
[2018-04-10 16:12] LABS: Basophils # 0.1 K/mm3 (0-0.2); Basophils % 0.3 % (0.1-2.0); Eosinophils # 0.4 K/mm3 (0.0-0.4); Eosinophils % 1.5 % (0.1-12.0); Hematocrit 37.6 % (42.0-52.0); Hemoglobin 11.8 g/dL (14.1-18.0); Lymphocytes # 1.6 K/mm3 (0.7-4.5); Mean Corpuscular HGB Conc 31.5 g/dL (31.8-35.4); Mean Corpuscular Hemoglobin 30.1 pg (27.0-31.2); Mean Corpuscular Volume 95.6 fl (80-94); Mean Platelet Volume 6.9 fl (7.4-10.4); Monocytes % 3.7 % (1.7-9.3); Neutrophils # 22.8 K/mm3 (1.8-7.8); Neutrophils % 88.4 % (37.0-80.0); Platelet Count 398 K/mm3 (142-424); Red Blood Count 3.93 M/mm3 (4.60-6.20); Red Cell Distribution Width 13.6 % (11.5-17.5); White Blood Count 25.8 K/mm3 (4.8-10.8)
[2018-04-10 16:28] LABS: Albumin Level 2.9 gm/dL (3.4-5.0); Albumin/Globulin Ratio 0.6 (1.1-1.8); Anion Gap 17.6 mEq/L (5-15); Bilirubin,Total 0.3 mg/dL (0.2-1.0); Calcium 8.9 mg/dL (8.5-10.1); Globulin 4.8 gm/dl (1.3-3.2); Potassium 3.6 mmoL/L (3.5-5.1); Total Protein,Serum 7.7 gm/dL (6.4-8.2)
[2018-04-10 16:45] LABS: Lymphocytes % 6 % (10-50); Monocytes % 4 % (2-9); Neutrophils % 90 % (42-76); Total Cells Counted 100
[2018-04-10 16:46] LABS: RBC Morphology Normal
--- NOTE | 2018-04-10 17:10 | Emergency Department Note ---
ED Disposition Clinical Impression: HCAP (healthcare-associated pneumonia), Hypoxia, Elevated troponin Disposition: Admitted As Inpatient Condition on Discharge: Fair - Critical Care Critical Care Time: Yes Attestation: On 04/10/18, the high probability of a clinically significant, sudden or life threatening deterioration of the following system(s) required my full and direct attention, intervention and personal management. The time I documented below is in addition to time spent performing reported procedures but includes the following listed in this critical care notation. Total Critical Care Time: 40 Vital system(s) involved:: Respiratory Failure My critical care processes included: Assessment & monitoring of V/S, Initial and Re-exams, Data Review/Interpretation, Coordinating Care, Medication Orders and management, Documentation Medical Decision Making - Jasvir Inquiry Pt receiving controlled substance: No Vital Signs: 04/10/18 15:37 04/10/18 15:49 04/10/18 19:52 Temperature 99.0 F Temperature Source Temporal Artery Scan Pulse Rate 118 H Pulse Rate [Right Brachial] 118 H 86 Respiratory Rate 26 H 20 Blood Pressure [Right Arm] 179/73 H 146/79 H Blood Pressure Mean [Right Arm] 108 101 Blood Pressure Source [Right Arm] Automatic Cuff Automatic Cuff Blood Pressure Position [Right Arm] Sitting Supine 02 Sat by Pulse Oximetry 86 L 94 L 100 Oxygen Delivery Method Room Air Nasal Cannula Nasal Cannula Oxygen Flow Rate (LPM) 2 3 - Lab Data Lab Results 04/10/18 15:53: WBC 25.8 H*, RBC 3.93 L, Hgb 11.8 L, Hct 37.6 L, MCV 95.6 H, MCH 30.1, MCHC 31.5 L, RDW 13.6, Plt Count 398, MPV 6.9 L, Neut % (Auto) 88.4 H, Lymph % (Auto) 6.0 L, [place] % (Auto) 3.7, Eos % (Auto) 1.5, Baso % (Auto) 0.3, Neut # (Auto) 22.8 H, Lymph # (Auto) 1.6, [place] # (Auto) 1.0, Eos # (Auto) 0.4, Baso # (Auto) 0.1, Total Counted 100, Neutrophils % (Manual) 90 H, Lymphocytes % (Manual) 6 L, Monocytes % (Manual) 4, Platelet Estimate Normal, RBC Morphology Normal 04/10/18 15:53: Sodium 133 L, Potassium 3.6, Chloride 96 L, Carbon Dioxide 23, Anion Gap 17.6 H, BUN 19 H, Creatinine 1.69 H, Estimated Creat Clear 84, Estimated GFR 42 L, Est GFR ( Amer) 51 L, Glucose 98, Calcium 8.9, Total Bilirubin 0.3, AST 8 L, ALT 12, Alkaline Phosphatase 83, Troponin I 0.45 H, Total Protein 7.7, Albumin 2.9 L, Globulin 4.8 H, Albumin/Globulin Ratio 0.6 L 04/10/18 15:53: Lactate 2.4 H 04/10/18 15:53: B-Natriuretic Peptide 72 Result diagrams: 04/10/18 15:53 04/10/18 15:53 Orders (Tests/Meds): ED MEDICATIONS Generic Name Dose Route Start Last Admin Trade Name Freq PRN Reason Stop Dose Admin Albuterol/Ipratropium 3 ml 04/10/18 20:00 Duoneb 3ml Neb IH 05/10/18 19:59 QIDRT [facility] Aspirin 81 mg 04/11/18 09:00 Aspirin 81mg Enteric Coated Tablet PO 05/11/18 08:59 DAILY [facility] Divalproex Sodium 250 mg 04/10/18 21:00 Depakote Sprinkle 125mg Capsule PO 05/10/18 20:59 TID [facility] Ergocalciferol 100,000 unit 04/10/18 20:00 Drisdol 50,000 Units (1.25mg) Capsule PO 05/10/18 19:59 WEEKLY [facility] Ferrous Sulfate 325 mg 04/10/18 21:00 Ferrous Sulfate 325mg Tablet PO 05/10/18 20:59 TID [facility] Folic Acid 1 mg 04/11/18 09:00 Folic Acid 1mg Tablet PO 05/11/18 08:59 DAILY [facility] Furosemide 20 mg 04/11/18 09:00 Lasix 20mg Tablet PO 05/11/18 08:59 DAILY [facility] Gabapentin 300 mg 04/10/18 21:00 Neurontin 300mg Capsule PO 05/10/18 20:59 TID [facility] Cefepime HCl 2 gm/ Sodium 100 mls @ 200 mls/hr 04/11/18 05:30 Chloride IV 04/24/18 17:29 Q12H [facility] Protocol Levofloxacin/Dextrose 750 mg in 150 mls @ 100 mls/hr 04/11/18 17:30 Levofloxacin 750mg/150ml Premix IV 04/24/18 17:29 Q24H [facility] Protocol Vancomycin HCl 1,750 mg/ 250 mls @ 125 mls/hr 04/11/18 18:00 Sodium Chloride IV 04/24/18 17:59 Q24H [facility] Methylprednisolone Sodium Succinate 80 mg 04/10/18 19:45 Solu-Medrol 125mg/2ml Vial IV 05/10/18 19:44 Q8H [facility] Miscellaneous 1 each 04/10/18 19:45 Vancomycin Consult Request NOTAPPLIC 04/11/18 05:18 CONSULT PHARMACY [facility] Montelukast Sodium 10 mg 04/10/18 21:00 Singulair 10mg Tablet PO 05/10/18 20:59 HS [facility] Nitroglycerin 0.4 mg 04/10/18 19:55 Nitrostat 0.4mg Sl Tablet SL 05/10/18 19:54 [id number] PRN Chest Pain Non-Formulary Medication 2 puffs 04/10/18 21:00 Budesonide/Formoterol Fumarate [Symbicort 160-4.5 Mcg Inhaler] IH 05/10/18 20:59 BID [facility] Non-Formulary Medication 15 mg 04/10/18 21:00 Buspirone Hcl [Buspirone Hcl] PO 05/10/18 20:59 TID [facility] Non-Formulary Medication 5 mg 04/10/18 19:55 Cyclobenzaprine Hcl [Cyclobenzaprine 5mg Tab] PO BIDP PRN MUSCLE SPASMS Non-Formulary Medication 1 tab 04/10/18 19:55 Guaifenesin [Mucus Relief] PO Q4HP PRN Cough Non-Formulary Medication 10 mg 04/11/18 09:00 Loratadine [Claritin] PO 05/11/18 08:59 DAILY [facility] Non-Formulary Medication 20 mg 04/11/18 09:00 Pantoprazole Sodium [Pantoprazole 20mg Tab] PO 05/11/18 08:59 DAILY [facility] Non-Formulary Medication 10 meq 04/11/18 09:00 Potassium Chloride [Pot Chlor 10 Meq Tab] PO 05/11/18 08:59 DAILY [facility] Non-Formulary Medication 300 mg 04/10/18 21:00 Quetiapine Fumarate [Quetiapine Fumarate] PO 05/10/18 20:59 HS [facility] Sodium Chloride 3 ml 04/10/18 19:45 Sodium Chloride 3% 15ml Neb 05/10/18 15:34 ONCE PRN INDUCE SPUTUM COLLECTION Discontinued Medications Generic Name Dose Route Start Last Admin Trade Name Freq PRN Reason Stop Dose Admin Albuterol/Ipratropium 3 ml 04/10/18 15:35 04/10/18 15:49 Duoneb 3ml [facility] 04/10/18 15:36 3 ml ONCE ONE Administration Aspirin 324 mg 04/10/18 17:12 04/10/18 17:17 Aspirin 81mg Chewable Tablet PO 04/10/18 17:13 324 mg ONCE ONE Administration Diphenhydramine HCl 25 mg 04/10/18 15:34 04/10/18 15:44 Benadryl 50mg/1ml Vial IV 04/10/18 15:35 25 mg ONCE ONE Administration Famotidine 20 mg 04/10/18 15:34 04/10/18 15:44 Pepcid 20mg/2ml Vial IV 04/10/18 15:35 20 mg ONCE ONE Administration Levofloxacin/Dextrose 750 mg in 150 mls @ 100 mls/hr 04/10/18 17:30 04/10/18 18:30 Levofloxacin 750mg/150ml Premix IV 04/24/18 17:29 100 mls/hr Q24H [facility] Administration Protocol Cefepime HCl 2 gm/ Sodium 100 mls @ 200 mls/hr 04/10/18 17:30 04/10/18 17:45 Chloride IV 04/24/18 17:29 200 mls/hr Q12H [facility] Administration Protocol Vancomycin HCl 2,000 mg/ 250 mls @ 125 mls/hr 04/10/18 17:51 04/10/18 18:12 Sodium Chloride IV 04/10/18 19:50 Not Given ONCE ONE Vancomycin HCl 2,000 mg/ 250 mls @ 125 mls/hr 04/10/18 17:58 04/10/18 18:12 Sodium Chloride IV 04/10/18 19:57 Not Given ONCE ONE Vancomycin HCl 1,750 mg/ 250 mls @ 125 mls/hr 04/10/18 18:00 Sodium Chloride IV 04/24/18 17:59 Q24H [facility] Methylprednisolone Sodium Succinate 125 mg 04/10/18 15:34 04/10/18 15:44 Solu-Medrol 125mg/2ml Vial IV 04/10/18 15:35 125 mg ONCE ONE Administration Miscellaneous 1 each 04/10/18 17:30 04/10/18 18:13 Vancomycin Consult Request NOTAPPLIC 04/11/18 05:18 1 each CONSULT PHARMACY [facility] Administration Sodium Chloride 3 ml 04/10/18 15:35 Sodium Chloride 3% 15ml Neb IH 05/10/18 15:34 ONCE PRN INDUCE SPUTUM COLLECTION ORDERS Category Date Time Status CT soft tissue neck wo con Stat Cat Scan 04/10/18 17:17 Taken Complete Blood Count Auto Diff AMLAB Lab 04/11/18 06:00 Ordered Complete Blood Count Auto Diff Stat Lab 04/10/18 15:53 Results Peripheral Smear Review Stat Lab 04/10/18 15:53 Results Troponin I Q3H Lab 04/10/18 21:45 Ordered Troponin I Q3H Lab 04/11/18 00:45 Ordered Blood Culture Stat Micro 04/10/18 15:53 Received Sputum Culture & Gram Stain Stat Micro 04/10/18 15:49 Ordered - Radiology Data #1 Image(s): Chest Image Reviewed: Yes I reviewed the patient's radiology image, Yes I have reviewed radiologist's interpretation FINDINGS: Mild patient rotation. Normal heart size. There is increased density in both lower lobes consistent bilateral lower lobe pneumonia. Upper lobes are clear. IMPRESSION: Bilateral lower lobe pneumonia Dictated By: Enrique Hernandez MD Signed By: <Electronically signed by Enrique Hernandez MD in [place]> 04/10/18 1552 - CT Data CT Scan: Other (Soft tissue neck) Time Received: 18:[address] Reviewed: Yes: I have viewed the radiologist's interpretation Findings Narrative: CT scan interpreted by [facility] radiologist. Faxed report received and reviewed: Very mild bilateral tonsillar swelling, no abscess, normal epiglottis - ECG Data Tracing #1 EKG interpreted by Jesus Boyle MD: Rhythm: sinus tachycardia Rate: 112 Tyro: normal Ectopy: none Conduction: Premature ventricular contraction ST Segment Changes: none T Wave Changes: Nonspecific Q Waves: none Prior electrocardiagrams reviewed. No change from prior tracings. - Physician Consults Physician Consulted: Felipe Time: 18:32 Reason -: Admission Comment/Response: Agrees to admit the patient to the hospital. We discussed the patient's clinical information, including history, exam, laboratory and radi ology results and ED course. Per hospital procedure, I will write temporary bridge inpatient orders on the patient. Specific orders requested by the admitting physician: Continue antibiotics, steroids, nebulizer treatments, oxygen General Adult HPI - General Chief complaint: Shortness of Breath/Dyspnea Stated complaint: possible epiglottitis Time Seen by Provider: 04/10/18 17:08 Mode of Arrival: EMS Limitations: No Limitations Description of Symptoms (Recalled from ER Triage Doc. by RN): RECENT ADMIT TO [facility] WITH AN "ALLERGIC REACTION VS ANGIODEMA" DIAGNOSIS; WAS DISCHARGED AND STATED HE HAS NOTICED INCREASING ISSUES WITH HIS THROAT OVER PAST FEW DAYS AND ALSO THAT IT IS EXTREMELY HARD TO SWALLOW. HAS BEEN COUGHING UP BROWN SPUTUM. - History of Present Illness HPI narrative: Arrives by ambulance complaining of being ill for a few days. Has a severe sore throat, only able to talk in a whisper. Severe cough. Denies chest pain. Denies fever. Denies vomiting or diarrhea. No rhinorrhea. Recent admissions here on 12/26 through 12/28 for pneumonia, 03/16 through 03/19 for pneumonia, and 03/29 through 03/30. Most recently admitted for an allergic reaction which she says was to ibuprofen. He had swelling of lips and difficulty swallowing and breathing. Also states he has an allergy to penicillin, which he describes as it makes him nervous and shaky. Primary care doctor is Dr. Jacobs in [facility]. - Related Data Home Medications Medication Instructions Recorded Confirmed Aspirin [Aspir-Low] 81 mg PO DAILY 12/26/17 04/10/18 Buspirone HCl 15 mg PO TID 12/26/17 04/10/18 Cyclobenzaprine HCl 5 mg PO BIDP PRN 12/26/17 04/10/18 [Cyclobenzaprine 5mg Tab] Divalproex Sodium 250 mg PO TID 12/26/17 04/10/18 Ferrous Sulfate 325 mg PO TID 12/26/17 04/10/18 Fluticasone Propionate [Flonase 1 spray IN DAILY 12/26/17 04/10/18 50mcg nasal spray 16gm] Gabapentin [Gabapentin 300mg Cap] 300 mg PO TID 12/26/17 04/10/18 Loratadine [Claritin] 10 mg PO DAILY 12/26/17 04/10/18 Montelukast Sodium [Montelukast 10 mg PO HS 12/26/17 04/10/18 10mg Tab] Nitroglycerin [Nitrostat 0.4mg SL 0.4 mg SL [id number] PRN 12/26/17 04/10/18 Tablet] Pantoprazole Sodium [Pantoprazole 20 mg PO DAILY 12/26/17 04/10/18 20mg Tab] Quetiapine Fumarate 300 mg PO HS 12/26/17 04/10/18 Sertraline HCl [Zoloft 100mg 100 mg PO DAILY 12/26/17 04/10/18 tablet] Albuterol Sulfate [Albuterol HFA 1 puff INHALATION Q6 PRN 03/16/18 04/10/18 Inhaler] Budesonide/Formoterol Fumarate 2 puffs IH BID 03/16/18 04/10/18 [Symbicort 160-4.5 Mcg Inhaler] Ergocalciferol (Vitamin D2) 100,000 unit PO WEEKLY 03/16/18 04/10/18 [Vitamin D2] Folic Acid [Folic Acid 1mg tablet] 1 mg PO DAILY 03/16/18 04/10/18 Furosemide [Furosemide 20mg Tab] 20 mg PO DAILY 03/16/18 04/10/18 Insulin Aspart [Novolog] 0 unit SQ DAILY 03/16/18 04/10/18 Meclizine HCl [Antivert 25mg 25 mg PO TIDP PRN 03/16/18 04/10/18 tablet] Potassium Chloride [Pot Chlor 10 10 meq PO DAILY 03/16/18 04/10/18 mEq Tab] Simvastatin 80 mg PO HS 03/16/18 04/10/18 guaiFENesin [Mucus Relief] 1 tab PO Q4HP PRN 03/16/18 04/10/18 Amlodipine Besylate 10 mg PO DAILY 04/10/18 04/10/18 Allergies Allergy/AdvReac Type Severity Reaction Status Date / Time Penicillins [PENICILLINS] Allergy Unknown Verified 03/16/18 00:35 [facility] History - Hepatitis A Screen Drug use history?: No High risk sexual behaviors?: No History of sexually transmitted infection?: No Currently employed?: No Childcare worker?: No Do you have indoor plumbing?: Yes Do you have electricity?: Yes Attestation statement:: This patient has been screened for Hepatitis A risk factors. I have reviewed the patient's past medical history: Yes Medical History: Reports:: Anxiety, Chronic Obstructive Pulmonary Disease (COPD), Coronary Artery Disease, Cerebrovascular Accident, Depression, Diabetes Mellitus Type 1, Diabetes Mellitus Type 2 (Pt states he is diabetic type 2), Hypertension, MRSA Denies:: Cancer, Seizures Other Medical History: Reports: Anemia, Arthritis, Cataracts Comment: Patient has had a CVA in the past with right-sided residual. Other Surgeries: Yes: Colonoscopy, EGD, Hernia Repair, Other (hernia) Amputation: No - Social History Educational Level: Completed High School Smoking Status: Current every day smoker Tobacco Type: cigarettes # Packs/Day (cigarettes): 1 #Yrs smoked (if former smoker): 30 Alcohol Intake: never Occupational Status: disabled Housing: apartment Household Members: spouse - Psychiatric History Expresses thoughts of harming self/others: None Suicide Plan Description: No Plan Pschychiatric History:: Reports:: Anxiety, Depression, Post Traumatic Stress Disorder Family Hx:: Cancer, Coronary Artery Disease, Hyperlipidemia, Hypertension, Stroke ROS Obtained: Yes All systems reviewed & no additional complaints - Constitutional Constitutional: Denies fever(s) - ENT Ears, Nose, Mouth, and Throat: Reports sore throat - Cardiovascular Cardiovascular: Denies chest pain - Respiratory Respiratory: Yes cough - Gastrointestinal Gastrointestingal: Denies: diarrhea, vomiting Physical Exam - General General appearance: alert Comment: Speaks in a whisper. Frequently coughing and spitting. - Head Head exam: atraumatic, normocephalic - Eye Eye exam: Present: normal appearance, PERRL, EOMI - ENT ENT exam: Present: normal exam, normal oropharynx, mucous membranes moist, TM's normal bilaterally - Neck Neck exam: Present: normal inspection, full ROM, trachea midline - Chest Chest inspection: Present: normal inspection, symmetric chest wall rise - Respiratory Respiratory exam: Present: other (Rhonchi) - Cardiovascular Cardiovascular exam: Present: regular rate, normal rhythm, normal heart sounds - Abdominal Exam Abdominal exam: Present: soft. Absent: distention, tenderness, guarding - Extremities Exam Extremities exam: Present: normal inspection - Neurological Exam Neurological exam: Present: alert, oriented X3 - Psychiatric Psychiatric exam: Present: normal affect, normal mood - Skin Skin exam: Present: warm, dry
[2018-04-11 02:10] LABS: Basophils % 0.1 % (0.1-2.0); Eosinophils # 0.1 K/mm3 (0.0-0.4); Eosinophils % 0.3 % (0.1-12.0); Hematocrit 32.4 % (42.0-52.0); Lymphocytes # 0.4 K/mm3 (0.7-4.5); Lymphocytes % 2.1 % (10-50); Mean Corpuscular HGB Conc 32.1 g/dL (31.8-35.4); Mean Corpuscular Hemoglobin 30.2 pg (27.0-31.2); Mean Platelet Volume 6.8 fl (7.4-10.4); Monocytes # 0.3 K/mm3 (0.1-1.0); Monocytes % 1.4 % (1.7-9.3); Neutrophils # 20.4 K/mm3 (1.8-7.8); Neutrophils % 96.2 % (37.0-80.0); Platelet Count 317 K/mm3 (142-424); Red Blood Count 3.45 M/mm3 (4.60-6.20); Red Cell Distribution Width 13.6 % (11.5-17.5)
[2018-04-11 02:16] LABS: Hemoglobin 10.4 g/dL (14.1-18.0); White Blood Count 21.2 K/mm3 (4.8-10.8)
[2018-04-11 02:44] LABS: Lymphocytes % 2 % (10-50); Neutrophils % 86 % (42-76); RBC Morphology Normal; Total Cells Counted 100
--- NOTE | 2018-04-11 09:38 | History & Physical Report ---
*Admission Date: 04/10/18 *Chief complaint: SOA, Cough *History of present illness: Mr. Campbell is a 57-year-old male with a history of previous CVA, COPD, morbid obesity, diabetes mellitus, and multiple recent admissions over the past 4 months for pneumonia. He presented to the ER due to 3 days of worsening shortness of breath. He is a service patient who does not follow with a primary care physician. He states he has had a nonproductive cough for about 3 days. He denies having a fever, nausea vomiting, confusion, syncope. Denies any sick contacts at home. [facility] [place] History Medical History: Reports:: Anxiety, Chronic Obstructive Pulmonary Disease (COPD), Coronary Artery Disease, Cerebrovascular Accident, Depression, Diabetes Mellitus Type 1, Diabetes Mellitus Type 2 (Pt states he is diabetic type 2), Hypertension, MRSA Denies:: Cancer, Seizures Have you ever received a pneumonia vaccine?: Yes Have you received a flu vaccine this season?: Yes Other Medical History: Reports: Anemia, Arthritis, Cataracts Other Surgeries: Yes: Colonoscopy, EGD, Hernia Repair, Other (hernia) Amputation: No Fractures: No - *Social History Educational Level: Completed High School Smoking Status: Current every day smoker Tobacco Type: cigarettes # Packs/Day (cigarettes): 1 #Yrs smoked (if former smoker): 30 Alcohol Intake: never Occupational Status: disabled Housing: apartment Household Members: spouse Travel in the last 8 weeks: None - Psychiatric History Expresses thoughts of harming self/others: None Suicide Plan Description: No Plan Pschychiatric History:: Reports:: Anxiety, Depression, Post Traumatic Stress Disorder Family Hx:: Cancer, Coronary Artery Disease, Hyperlipidemia, Hypertension, Stroke Review of Systems - Review of Systems Review of systems:: pertinent systems reviewed and negative unless documented below Meds Home Medications Medication Instructions Recorded Confirmed Type Aspirin [Aspir-Low] 81 mg PO DAILY 12/26/17 04/10/18 History Buspirone HCl 15 mg PO TID 12/26/17 04/10/18 History Cyclobenzaprine HCl 5 mg PO BIDP PRN 12/26/17 04/10/18 History [Cyclobenzaprine 5mg Tab] Divalproex Sodium 250 mg PO TID 12/26/17 04/10/18 History Ferrous Sulfate 325 mg PO TID 12/26/17 04/10/18 History Fluticasone Propionate [Flonase 1 spray IN DAILY 12/26/17 04/10/18 History 50mcg nasal spray 16gm] Gabapentin [Gabapentin 300mg Cap] 300 mg PO TID 12/26/17 04/10/18 History Loratadine [Claritin] 10 mg PO DAILY 12/26/17 04/10/18 History Montelukast Sodium [Montelukast 10 mg PO HS 12/26/17 04/10/18 History 10mg Tab] Nitroglycerin [Nitrostat 0.4mg SL 0.4 mg SL [id number] PRN 12/26/17 04/10/18 History Tablet] Pantoprazole Sodium [Pantoprazole 20 mg PO DAILY 12/26/17 04/10/18 History 20mg Tab] Quetiapine Fumarate 300 mg PO HS 12/26/17 04/10/18 History Sertraline HCl [Zoloft 100mg 100 mg PO DAILY 12/26/17 04/10/18 History tablet] Albuterol Sulfate [Albuterol HFA 1 - 2 puff INHALATION Q6HP PRN 03/16/18 04/11/18 History Inhaler] Budesonide/Formoterol Fumarate 2 puffs IH BID 03/16/18 04/10/18 History [Symbicort 160-4.5 Mcg Inhaler] Ergocalciferol (Vitamin D2) 100,000 unit PO WEEKLY 03/16/18 04/10/18 History [Vitamin D2] Folic Acid [Folic Acid 1mg tablet] 1 mg PO DAILY 03/16/18 04/10/18 History Furosemide [Furosemide 20mg Tab] 20 mg PO DAILY 03/16/18 04/10/18 History Insulin Aspart [Novolog] 0 unit SQ DAILY 03/16/18 04/10/18 History Meclizine HCl [Antivert 25mg 25 mg PO TIDP PRN 03/16/18 04/10/18 History tablet] Potassium Chloride [Pot Chlor 10 10 meq PO DAILY 03/16/18 04/10/18 History mEq Tab] guaiFENesin [Mucus Relief] 1 tab PO Q4HP PRN 03/16/18 04/10/18 History Amlodipine Besylate 10 mg PO DAILY 04/10/18 04/10/18 History Atorvastatin Calcium [Atorvastatin 40 mg PO HS 04/11/18 04/11/18 History 40mg Tab] Allergies Allergy/AdvReac Type Severity Reaction Status Date / Time Penicillins [PENICILLINS] Allergy Unknown Verified 03/16/18 00:35 ibuprofen Allergy Verified 04/11/18 02:11 Exam Vital signs and Labs for Last 24 Hours: Temp Pulse Resp BP Pulse Ox 98.0 F 89 22 129/66 99 04/11/18 08:00 04/11/18 08:00 04/11/18 08:00 04/11/18 08:00 04/11/18 08:00 Laboratory Results - last 24 hr 04/10/18 15:53: WBC 25.8 H*, RBC 3.93 L, Hgb 11.8 L, Hct 37.6 L, MCV 95.6 H, MCH 30.1, MCHC 31.5 L, RDW 13.6, Plt Count 398, MPV 6.9 L, Neut % (Auto) 88.4 H, Lymph % (Auto) 6.0 L, [place] % (Auto) 3.7, Eos % (Auto) 1.5, Baso % (Auto) 0.3, Neut # (Auto) 22.8 H, Lymph # (Auto) 1.6, [place] # (Auto) 1.0, Eos # (Auto) 0.4, Baso # (Auto) 0.1, Total Counted 100, Neutrophils % (Manual) 90 H, Lymphocytes % (Manual) 6 L, Monocytes % (Manual) 4, Platelet Estimate Normal, RBC Morphology Normal 04/10/18 15:53: Sodium 133 L, Potassium 3.6, Chloride 96 L, Carbon Dioxide 23, Anion Gap 17.6 H, BUN 19 H, Creatinine 1.69 H, Estimated Creat Clear 84, Estimated GFR 42 L, Est GFR ( Amer) 51 L, Glucose 98, Calcium 8.9, Total Bilirubin 0.3, AST 8 L, ALT 12, Alkaline Phosphatase 83, Troponin I 0.45 H, Total Protein 7.7, Albumin 2.9 L, Globulin 4.8 H, Albumin/Globulin Ratio 0.6 L 04/10/18 15:53: Lactate 2.4 H 04/10/18 15:53: B-Natriuretic Peptide 72 04/10/18 19:41: Lactate 1.2 04/10/18 21:30: Troponin I 0.31 H 04/10/18 21:58: POC Glucose 201 H 04/11/18 02:00: Troponin I 0.22 H 04/11/18 02:00: WBC 21.2 H*, RBC 3.45 L, Hgb 10.4 L D, Hct 32.4 L, MCV 94.0, MCH 30.2, MCHC 32.1, RDW 13.6, Plt Count 317, MPV 6.8 L, Neut % (Auto) 96.2 H, Lymph % (Auto) 2.1 L, [place] % (Auto) 1.4 L, Eos % (Auto) 0.3, Baso % (Auto) 0.1, Neut # (Auto) 20.4 H, Lymph # (Auto) 0.4 L, [place] # (Auto) 0.3, Eos # (Auto) 0.1, Baso # (Auto) 0.0, Total Counted 100, Neutrophils % (Manual) 86 H, Band Neutrophils % 12.0 H, Lymphocytes % (Manual) 2 L, Platelet Estimate Normal, RBC Morphology Normal 04/11/18 06:02: POC Glucose 188 H I & O for Last 24 hours: Intake & Output 04/08/18 04/09/18 04/10/18 04/11/18 23:59 23:59 23:59 23:59 Intake Total 240 / 240 Balance 240 / 240 Weight 126.609 kg Microbiology Reports for the Last 24 Hours: Microbiology 04/10/18 15:49 Sputum - Expectorated Sputum Gram Stain - Final 04/10/18 15:49 Sputum - Expectorated Sputum Sputum Culture - Preliminary - Constitutional mild distress, morbidly obese, chronically ill appearing - *Routine HEENT Exam Head: Present: normocephalic, atraumatic Eye: Present: EOMI, PERRL ENT: Present: mucous membranes moist - *Routine Neck Exam Present: supple. Absent: JVD - *Routine Respiratory Exam Present: decreased breath sounds, prolonged expiratory phase, wheezes - *Routine Cardiovascular Exam Present: RRR, Normal S1 - *Routine Abdominal Exam Present: soft, normoactive bowel sounds. Absent: tenderness - *Routine Rectal Exam Patient deferred: visual exam - *Routine Exam Patient deferred: penile exam - *Routine Extremities Exam Present: edema (trace). Absent: cyanosis, clubbing - *Routine Skin Exam Present: intact. Absent: cyanosis, erythema - *Routine Neurological Exam Present: alert, oriented X3. Absent: altered mental status Assessment and Plan (1) Elevated troponin Current visit: Yes Status: Acute Category: Medical Code(s): R74.8 - Abnormal levels of other serum enzymes Suspect type II NSTEMI -Has presented several times with similar respiratory symptoms and slight elevation in troponins, serial troponin trended down. Denies any chest pain. No ST changes on EKG. -Monitor for symptoms. If occur will consult cardiology. Otherwise will likely benefit from cardiology follow-up in the outpatient setting (2) HCAP (healthcare-associated pneumonia) Current visit: Yes Status: Acute Category: Medical Code(s): J18.9 - Pneumonia, unspecified organism Continue IV antibiotics as ordered. Continue steroids. Continue breathing treatments, increase to every 4 hours (3) Hypoxia Current visit: Yes Status: Acute Category: Medical Code(s): R09.02 - Hypoxemia Secondary to his pneumonia/respiratory failure -Supplemental oxygen as needed, goal sats greater than 92 while awake, greater than 88 while asleep, titrate accordingly (4) Hyponatremia Current visit: No Status: Acute Category: Medical Code(s): E87.1 - Hypo- osmolality and hyponatremia Suspect due to dehydration. Monitor with daily labs and improvement expected with resuscitation (5) Renal insufficiency Current visit: No Status: Chronic Category: Medical Code(s): N28.9 - Disorder of kidney and ureter, unspecified Unclear about acute on chronic however has been previously elevated within the same range on recent admissions. We will continue to monitor with daily labs to assess for improvement with fluids. (6) Tobacco use Current visit: No Status: Chronic Category: Medical Code(s): Z72.0 - Tobacco use Nicotine replacement as needed (7) Sepsis Current visit: Yes Status: Acute Qualifiers: Sepsis type: sepsis due to unspecified organism Qualified Code(s): A41.9 - Sepsis, unspecified organism Category: Medical Code(s): A41.9 - Sepsis, unspecified organism Make criteria on admission with leukocytosis, tachypnea, infection. -Initiated on broad-spectrum antibiotics, status post fluid resuscitation. Blood cultures obtained. Continue broad-spectrum antibiotics and de-escalate accordingly pending culture results. (8) Diabetes mellitus Current visit: No Status: Chronic Qualifiers: Diabetes mellitus type: type 2 Diabetes mellitus long-term insulin use: unspecified terminal superintendent insulin use status Diabetes mellitus complication status: with unspecified complications Qualified Code(s): E11.8 - Type 2 diabetes mellitus with unspecified complications Category: Medical Code(s): E11.9 - Type 2 diabetes mellitus without complications Does not appear to be on any maintenance medications at home diabetes. Continue sliding scale insulin during admission. Will workup further in the outpatient setting.
--- NOTE | 2018-04-11 12:47 | Pharmacy Consult Notes ---
- Pharmacy Consult Date: 04/11/18 Time: 12:46 Referring provider: DR. ERAZO Reason for Consult:: VANCOMYCIN DOSING Allergies and ADEs:: Allergies Allergy/AdvReac Type Severity Reaction Status Date / Time Penicillins [PENICILLINS] Allergy Unknown Verified 03/16/18 00:35 ibuprofen Allergy Verified 04/11/18 02:11 Home Medications:: Home Medications Medication Instructions Recorded Confirmed Type Aspirin [Aspir-Low] 81 mg PO DAILY 12/26/17 04/10/18 History Buspirone HCl 15 mg PO TID 12/26/17 04/10/18 History Cyclobenzaprine HCl 5 mg PO BIDP PRN 12/26/17 04/10/18 History [Cyclobenzaprine 5mg Tab] Divalproex Sodium 250 mg PO TID 12/26/17 04/10/18 History Ferrous Sulfate 325 mg PO TID 12/26/17 04/10/18 History Fluticasone Propionate [Flonase 1 spray IN DAILY 12/26/17 04/10/18 History 50mcg nasal spray 16gm] Gabapentin [Gabapentin 300mg Cap] 300 mg PO TID 12/26/17 04/10/18 History Loratadine [Claritin] 10 mg PO DAILY 12/26/17 04/10/18 History Montelukast Sodium [Montelukast 10 mg PO HS 12/26/17 04/10/18 History 10mg Tab] Nitroglycerin [Nitrostat 0.4mg SL 0.4 mg SL [id number] PRN 12/26/17 04/10/18 History Tablet] Pantoprazole Sodium [Pantoprazole 20 mg PO DAILY 12/26/17 04/10/18 History 20mg Tab] Quetiapine Fumarate 300 mg PO HS 12/26/17 04/10/18 History Sertraline HCl [Zoloft 100mg 100 mg PO DAILY 12/26/17 04/10/18 History tablet] Albuterol Sulfate [Albuterol HFA 1 puff INHALATION Q6 PRN 03/16/18 04/10/18 History Inhaler] Budesonide/Formoterol Fumarate 2 puffs IH BID 03/16/18 04/10/18 History [Symbicort 160-4.5 Mcg Inhaler] Ergocalciferol (Vitamin D2) 100,000 unit PO WEEKLY 03/16/18 04/10/18 History [Vitamin D2] Folic Acid [Folic Acid 1mg tablet] 1 mg PO DAILY 03/16/18 04/10/18 History Furosemide [Furosemide 20mg Tab] 20 mg PO DAILY 03/16/18 04/10/18 History Insulin Aspart [Novolog] 0 unit SQ DAILY 03/16/18 04/10/18 History Meclizine HCl [Antivert 25mg 25 mg PO TIDP PRN 03/16/18 04/10/18 History tablet] Potassium Chloride [Pot Chlor 10 10 meq PO DAILY 03/16/18 04/10/18 History mEq Tab] Simvastatin 80 mg PO HS 03/16/18 04/10/18 History guaiFENesin [Mucus Relief] 1 tab PO Q4HP PRN 03/16/18 04/10/18 History Amlodipine Besylate 10 mg PO DAILY 04/10/18 04/10/18 History Height: 1.83 m Weight: 126.609 kg Laboratory Results:: Laboratory Results - last 24 hr 04/10/18 15:53: WBC 25.8 H*, RBC 3.93 L, Hgb 11.8 L, Hct 37.6 L, MCV 95.6 H, MCH 30.1, MCHC 31.5 L, RDW 13.6, Plt Count 398, MPV 6.9 L, Neut % (Auto) 88.4 H, Lymph % (Auto) 6.0 L, [place] % (Auto) 3.7, Eos % (Auto) 1.5, Baso % (Auto) 0.3, Neut # (Auto) 22.8 H, Lymph # (Auto) 1.6, [place] # (Auto) 1.0, Eos # (Auto) 0.4, Baso # (Auto) 0.1, Total Counted 100, Neutrophils % (Manual) 90 H, Lymphocytes % (Manual) 6 L, Monocytes % (Manual) 4, Platelet Estimate Normal, RBC Morphology Normal 04/10/18 15:53: Sodium 133 L, Potassium 3.6, Chloride 96 L, Carbon Dioxide 23, Anion Gap 17.6 H, BUN 19 H, Creatinine 1.69 H, Estimated Creat Clear 84, Estimated GFR 42 L, Est GFR ( Amer) 51 L, Glucose 98, Calcium 8.9, Total Bilirubin 0.3, AST 8 L, ALT 12, Alkaline Phosphatase 83, Troponin I 0.45 H, Total Protein 7.7, Albumin 2.9 L, Globulin 4.8 H, Albumin/Globulin Ratio 0.6 L 04/10/18 15:53: Lactate 2.4 H 04/10/18 15:53: B-Natriuretic Peptide 72 04/10/18 19:41: Lactate 1.2 04/10/18 21:30: Troponin I 0.31 H 04/10/18 21:58: POC Glucose 201 H 04/11/18 02:00: Troponin I 0.22 H 04/11/18 02:00: WBC 21.2 H*, RBC 3.45 L, Hgb 10.4 L D, Hct 32.4 L, MCV 94.0, MCH 30.2, MCHC 32.1, RDW 13.6, Plt Count 317, MPV 6.8 L, Neut % (Auto) 96.2 H, Lymph % (Auto) 2.1 L, [place] % (Auto) 1.4 L, Eos % (Auto) 0.3, Baso % (Auto) 0.1, Neut # (Auto) 20.4 H, Lymph # (Auto) 0.4 L, [place] # (Auto) 0.3, Eos # (Auto) 0.1, Baso # (Auto) 0.0, Total Counted 100, Neutrophils % (Manual) 86 H, Band Neutrophils % 12.0 H, Lymphocytes % (Manual) 2 L, Platelet Estimate Normal, RBC Morphology Normal 04/11/18 06:02: POC Glucose 188 H 04/11/18 12:11: POC Glucose 164 H Medical History: Reports:: Anxiety, Chronic Obstructive Pulmonary Disease (COPD), Coronary Artery Disease, Cerebrovascular Accident, Depression, Diabetes Mellitus Type 1, Diabetes Mellitus Type 2 (Pt states he is diabetic type 2), Hypertension, MRSA Denies:: Cancer, Seizures Assessment and Plan - Assessment and plan all Dx Assessment and Plan for all problems:: BASED ON PATIENT FACTORS, RECOMMEND VANCOMYCIN 2 GM IV Q18H. WILL OBTAIN VANCOMYCIN TROUGH LEVEL TOMORROW PRIOR TO 3RD DOSE. PHARMACY WILL FOLLOW DAILY AND ADJUST APPROPRIATE.
--- NOTE | 2018-04-11 14:52 | Pharmacy Consult Notes ---
[facility] Pharmacy VTE Monitoring - Patient Demographics Admission date: 04/10/18 Report Date: 04/11/18 Time: 14:52 Allergies/Adverse Reactions: Patient Allergies Penicillins [PENICILLINS] Allergy (Unknown, Verified 03/16/18 00:35) ibuprofen Allergy (Verified 04/11/18 02:11) Height: 1.83 m Weight: 126.609 kg Patient Problems: Current Active Problems HCAP (healthcare-associated pneumonia) (Acute) Hypoxia (Acute) Elevated troponin (Acute) - VTE Risk Labs: VTE Related Lab Results Hgb 10.4 g/dL (14.1-18.0) L D 04/11/18 02:00 Hct 32.4 % (42.0-52.0) L 04/11/18 02:00 Plt Count 317 K/mm3 (142-424) 04/11/18 02:00 BUN 19 mg/dL (7-18) H 04/10/18 15:53 Creatinine 1.69 mg/dL (0.70-1.30) H 04/10/18 15:53 Estimated Creat Clear 84 mL/min (50-200) 04/10/18 15:53 Was VTE Risk Assessment Performed: Yes VTE Risk Level: Moderate Risk - Prophylaxis VTE Prophylaxis Ordered?: Yes Types of VTE Prophylaxis: TEDS Knee High Location of Applied Device: Bilateral Lower Extremeties
--- NOTE | 2018-04-12 11:32 | Pharmacy Consult Notes ---
- Pharmacy Consult Date: 04/12/18 Time: 11:31 Referring provider: DR. ERAZO Reason for Consult:: VANCOMYCIN TROUGH LEVEL Allergies and ADEs:: Allergies Allergy/AdvReac Type Severity Reaction Status Date / Time Penicillins [PENICILLINS] Allergy Unknown Verified 03/16/18 00:35 ibuprofen Allergy Verified 04/11/18 02:11 Home Medications:: Home Medications Medication Instructions Recorded Confirmed Type Aspirin [Aspir-Low] 81 mg PO DAILY 12/26/17 04/10/18 History Buspirone HCl 15 mg PO TID 12/26/17 04/10/18 History Cyclobenzaprine HCl 5 mg PO BIDP PRN 12/26/17 04/10/18 History [Cyclobenzaprine 5mg Tab] Divalproex Sodium 250 mg PO TID 12/26/17 04/10/18 History Ferrous Sulfate 325 mg PO TID 12/26/17 04/10/18 History Fluticasone Propionate [Flonase 1 spray IN DAILY 12/26/17 04/10/18 History 50mcg nasal spray 16gm] Gabapentin [Gabapentin 300mg Cap] 300 mg PO TID 12/26/17 04/10/18 History Loratadine [Claritin] 10 mg PO DAILY 12/26/17 04/10/18 History Montelukast Sodium [Montelukast 10 mg PO HS 12/26/17 04/10/18 History 10mg Tab] Nitroglycerin [Nitrostat 0.4mg SL 0.4 mg SL [id number] PRN 12/26/17 04/10/18 History Tablet] Pantoprazole Sodium [Pantoprazole 20 mg PO DAILY 12/26/17 04/10/18 History 20mg Tab] Quetiapine Fumarate 300 mg PO HS 12/26/17 04/10/18 History Sertraline HCl [Zoloft 100mg 100 mg PO DAILY 12/26/17 04/10/18 History tablet] Albuterol Sulfate [Albuterol HFA 1 - 2 puff INHALATION Q6HP PRN 03/16/18 04/11/18 History Inhaler] Budesonide/Formoterol Fumarate 2 puffs IH BID 03/16/18 04/10/18 History [Symbicort 160-4.5 Mcg Inhaler] Ergocalciferol (Vitamin D2) 100,000 unit PO WEEKLY 03/16/18 04/10/18 History [Vitamin D2] Folic Acid [Folic Acid 1mg tablet] 1 mg PO DAILY 03/16/18 04/10/18 History Furosemide [Furosemide 20mg Tab] 20 mg PO DAILY 03/16/18 04/10/18 History Insulin Aspart [Novolog] 0 unit SQ DAILY 03/16/18 04/10/18 History Meclizine HCl [Antivert 25mg 25 mg PO TIDP PRN 03/16/18 04/10/18 History tablet] Potassium Chloride [Pot Chlor 10 10 meq PO DAILY 03/16/18 04/10/18 History mEq Tab] guaiFENesin [Mucus Relief] 1 tab PO Q4HP PRN 03/16/18 04/10/18 History Amlodipine Besylate 10 mg PO DAILY 04/10/18 04/10/18 History Atorvastatin Calcium [Atorvastatin 40 mg PO HS 04/11/18 04/11/18 History 40mg Tab] Height: 1.83 m Weight: 126.609 kg Laboratory Results:: Laboratory Results - last 24 hr 04/11/18 12:11: POC Glucose 164 H 04/11/18 17:23: POC Glucose 185 H 04/11/18 21:51: POC Glucose 151 H 04/12/18 05:31: POC Glucose 225 H 04/12/18 08:23: Vancomycin Trough 17.0 Medical History: Reports:: Anxiety, Chronic Obstructive Pulmonary Disease ( COPD), Coronary Artery Disease, Cerebrovascular Accident, Depression, Diabetes Mellitus Type 1, Diabetes Mellitus Type 2 (Pt states he is diabetic type 2), Hypertension, MRSA Denies:: Cancer, Seizures Assessment and Plan (1) Elevated troponin Current visit: Yes Status: Acute Category: Medical Code(s): R74.8 - Abnormal levels of other serum enzymes (2) HCAP (healthcare-associated pneumonia) Current visit: Yes Status: Acute Category: Medical Code(s): J18.9 - Pneumonia, unspecified organism (3) Hypoxia Current visit: Yes Status: Acute Category: Medical Code(s): R09.02 - Hypoxemia (4) Hyponatremia Current visit: No Status: Acute Category: Medical Code(s): E87.1 - Hypo- osmolality and hyponatremia (5) Renal insufficiency Current visit: No Status: Chronic Category: Medical Code(s): N28.9 - Disorder of kidney and ureter, unspecified (6) Tobacco use Current visit: No Status: Chronic Category: Medical Code(s): Z72.0 - Tobacco use (7) Sepsis Current visit: Yes Status: Acute Qualifiers: Sepsis type: sepsis due to unspecified organism Qualified Code(s): A41.9 - Sepsis, unspecified organism Category: Medical Code(s): A41.9 - Sepsis, unspecified organism (8) Diabetes mellitus Current visit: No Status: Chronic Qualifiers: Diabetes mellitus type: type 2 Diabetes mellitus joint terminal attack controller insulin use: unspecified correction insulin use status Diabetes mellitus complication status: with unspecified complications Qualified Code(s): E11.8 - Type 2 diabetes mellitus with unspecified complications Category: Medical Code(s): E11.9 - Type 2 diabetes mellitus without complications - Assessment and plan all Dx Assessment and Plan for all problems:: BASED ON VANCOMYCIN TROUGH LEVEL AND PATIENT FACTORS, RECOMMEND EXTENDING THE INTERVAL TO VANCOMYCIN 2 GM IV Q24H. PHARMACY WILL CONTINUE TO MONITOR DAILY AND ADJUST APPROPRIATE.
--- NOTE | 2018-04-12 11:45 | Progress Note ---
Internal Medicine - PN: Subj *Date: 04/12/18 *Time: 11:30 Interval history: No acute events overnight. This morning he reports that he wants to go home but understands reasoning behind delaying discharge until cultures are available. Still using oxygen by NC at 2L/min. Reports good appetite, stool and urine output. Denies pain this morning. Exam Vital signs and Labs for Last 24 Hours: Temp Pulse Resp BP Pulse Ox 98.0 F 91 H 16 126/79 93 L 04/12/18 07:58 04/12/18 10:15 04/12/18 07:58 04/12/18 07:58 04/12/18 10:15 Laboratory Results - last 24 hr 04/11/18 12:11: POC Glucose 164 H 04/11/18 17:23: POC Glucose 185 H 04/11/18 21:51: POC Glucose 151 H 04/12/18 05:31: POC Glucose 225 H 04/12/18 08:23: Vancomycin Trough 17.0 I & O for Last 24 hours: Intake & Output 04/09/18 04/10/18 04/11/18 04/12/18 11:59 11:59 11:59 11:59 Intake Total 240 / 240 480 / 480 Balance 240 / 240 480 / 480 Weight 279 lb 2 oz 279 lb 2 oz Microbiology Reports for the Last 24 Hours: Microbiology 04/10/18 15:49 Sputum - Expectorated Sputum Gram Stain - Final 04/10/18 15:49 Sputum - Expectorated Sputum Sputum Culture - Preliminary Narrative: Alert, oriented with normal speech. Mucous membranes are moist, poor dentition. Neck supple. Heart with RRR, distal pulses 2+. Lungs with rhonchi bilaterally, more pronounced throughout the left side. No increased work of breath. Abdomen is obese, soft, NT/ND, BS normoactive. No peripheral edema. Moves all extre mities grossly. Skin is warm, dry, intact. Assessment and Plan (1) HCAP (healthcare-associated pneumonia) Current visit: Yes Status: Acute Category: Medical Code(s): J18.9 - Pneumonia, unspecified organism (2) Elevated troponin Current visit: Yes Status: Acute Category: Medical Code(s): R74.8 - Abnormal levels of other serum enzymes (3) Hypoxia Current visit: Yes Status: Acute Category: Medical Code(s): R09.02 - Hyp oxemia (4) Hyponatremia Current visit: No Status: Acute Category: Medical Code(s): E87.1 - Hypo- osmolality and hyponatremia (5) Renal insufficiency Current visit: No Status: Chronic Category: Medical Code(s): N28.9 - Disorder of kidney and ureter, unspecified (6) Tobacco use Current visit: No Status: Chronic Category: Medical Code(s): Z72.0 - Tobacco use (7) Sepsis Current visit: Yes Status: Acute Qualifiers: Sepsis type: sepsis due to unspecified organism Qualified Code(s): A41.9 - Sepsis, unspecified organism Category: Medical Code(s): A41.9 - Sepsis, unspecified organism (8) Diabetes mellitus Current visit: No Status: Chronic Qualifiers: Diabetes mellitus type: type 2 Diabetes mellitus terminal computer operator insulin use: unspecified [facility] insulin use status Diabetes mellitus complication status: with unspecified complications Qualified Code(s): E11.8 - Type 2 diabetes mellitus with unspecified complications Category: Medical Code(s): E11.9 - Type 2 diabetes mellitus without complications - Assessment and plan all Dx Assessment and Plan for all problems:: Continue antibiotic coverage with vancomycin, levaquin and cefepime pending sputum culture report. If this is available tomorrow, labs are stable/improved and he tolerates room air oxygen, could potentially discharge home on oral antibiotics.
[2018-04-13 06:25] LABS: Hematocrit 31.7 % (42.0-52.0); Hemoglobin 10.1 g/dL (14.1-18.0); Lymphocytes # 0.7 K/mm3 (0.7-4.5); Lymphocytes % 4.1 % (10-50); Mean Corpuscular HGB Conc 31.8 g/dL (31.8-35.4); Mean Corpuscular Hemoglobin 30.2 pg (27.0-31.2); Mean Platelet Volume 6.9 fl (7.4-10.4); Monocytes # 0.5 K/mm3 (0.1-1.0); Monocytes % 2.9 % (1.7-9.3); Neutrophils # 15.7 K/mm3 (1.8-7.8); Neutrophils % 92.9 % (37.0-80.0); Platelet Count 336 K/mm3 (142-424); Red Blood Count 3.33 M/mm3 (4.60-6.20); Red Cell Distribution Width 13.6 % (11.5-17.5); White Blood Count 16.9 K/mm3 (4.8-10.8)
[2018-04-13 06:40] LABS: Anion Gap 15.1 mEq/L (5-15); Calcium 8.9 mg/dL (8.5-10.1); Potassium 4.1 mmoL/L (3.5-5.1)
--- NOTE | 2018-04-13 08:20 | Discharge Summary ---
General - General Admission date:: 04/10/18 Discharge date: 04/13/18 HPI HPI: Mr. Campbell is a 57-year-old male with a history of previous CVA, COPD, morbid obesity, diabetes mellitus, and multiple recent admissions over the past 4 months for pneumonia. He presented to the ER due to 3 days of worsening shortness of breath. He is a service patient who does not follow with a primary care physician. He states he has had a nonproductive cough for about 3 days. He denies having a fever, nausea vomiting, confusion, syncope. Denies any sick contacts at home. Hospital Course Hospital Course: Patient was admitted, placed on broad-spectrum antibiotics and improved very nicely. He wished to go home the following day but we persuaded him to wait 1 more day for blood culture and sputum culture results. This morning he is feeling good. Still has an oxygen requirement, but is eating vigorously and has no problems with swallowing or breathing. Wishes to go home. Sputum culture is nondiagnostic, blood cultures negative. Plan will be to send him home on oxygen, antibiotics and prednisone therapy. He will follow-up with his regular provider in the next week. Objective Vital signs: Temp Pulse Resp BP Pulse Ox 98.8 F 80 18 112/61 90 L 04/13/18 04:00 04/13/18 06:09 04/13/18 04:00 04/13/18 04:00 04/13/18 06:09 Narrative: Patient is sitting up on the side of the bed eating breakfast vigorously. Oropharynx is clear. Lungs have rhonchi bilaterally but good air movement. Wearing oxygen and is comfortable Heart rate regular. No edema or clubbing., Moving all extremities well. Neurologic exam intact. Results Labs on day of discharge: Labs from last 24 hours 04/13/18 04/13/18 04/13/18 06:05 06:05 06:01 WBC 16.9 H RBC 3.33 L Hgb 10.1 L Hct 31.7 L MCV 95.0 H MCH 30.2 MCHC 31.8 RDW 13.6 Plt Count 336 MPV 6.9 L Neut % (Auto) 92.9 H Lymph % (Auto) 4.1 L [place] % (Auto) 2.9 Eos % (Auto) 0.0 L Baso % (Auto) 0.0 L Neut # (Auto) 15.7 H Lymph # (Auto) 0.7 [place] # (Auto) 0.5 Eos # (Auto) 0.0 Baso # (Auto) 0.0 Sodium 137 Potassium 4.1 Chloride 104 Carbon Dioxide 22 Anion Gap 15.1 H BUN 36 H D Creatinine 1.44 H Estimated Creat Clear 100 Estimated GFR 50 L Est GFR ( Amer) 61 Glucose 220 H POC Glucose 203 H Calcium 8.9 Vancomycin Trough 04/12/18 04/12/18 04/12/18 20:42 16:10 12:39 WBC RBC Hgb Hct MCV MCH MCHC RDW Plt Count MPV Neut % (Auto) Lymph % (Auto) [place] % (Auto) Eos % (Auto) Baso % (Auto) Neut # (Auto) Lymph # (Auto) [place] # (Auto) Eos # (Auto) Baso # (Auto) Sodium Potassium Chloride Carbon Dioxide Anion Gap BUN Creatinine Estimated Creat Clear Estimated GFR Est GFR ( Amer) Glucose POC Glucose 202 H 194 H 181 H Calcium Vancomycin Trough 04/12/18 08:23 WBC RBC Hgb Hct MCV MCH MCHC RDW Plt Count MPV Neut % (Auto) Lymph % (Auto) [place] % (Auto) Eos % (Auto) Baso % (Auto) Neut # (Auto) Lymph # (Auto) [place] # (Auto) Eos # (Auto) Baso # (Auto) Sodium Potassium Chloride Carbon Dioxide Anion Gap BUN Creatinine Estimated Creat Clear Estimated GFR Est GFR ( Amer) Glucose POC Glucose Calcium Vancomycin Trough 17.0 Preliminary micro results at discharge 04/10/18 15:53 Blood Culture - Preliminary Blood NO GROWTH AFTER 48 HOURS 04/10/18 15:53 Blood Culture - Preliminary Blood NO GROWTH AFTER 48 HOURS DS: Diagnosis - Discharge Diagnosis (1) HCAP (healthcare-associated pneumonia) Status: Acute (2) Elevated troponin Status: Resolved (3) Hypoxia Status: Resolved (4) Hyponatremia Status: Resolved (5) Renal insufficiency Status: Chronic (6) Tobacco use Status: Chronic (7) Sepsis Status: Resolved (8) Diabetes mellitus Status: Chronic Discharge Plan - Patient Discharge Instructions ACTIVITY: Continue current activity DIET: continue same diet Patient Instructions: Cardiac Troponin, Pneumonia-Adult, Pneumococcal Vaccine, DI for Pneumonia -- Adult, DI for Hypoxia - Follow up Plan Follow up with: Gina Jacobs [Referring] - 04/17/18 Disposition: Home, Self-Halfway Medications: Home Medications Medication Instructions Recorded Confirmed Type Aspirin [Aspir-Low] 81 mg PO DAILY 12/26/17 04/10/18 History Buspirone HCl 15 mg PO TID 12/26/17 04/10/18 History Cyclobenzaprine HCl 5 mg PO BIDP PRN 12/26/17 04/10/18 History [Cyclobenzaprine 5mg Tab] Divalproex Sodium 250 mg PO TID 12/26/17 04/10/18 History Ferrous Sulfate 325 mg PO TID 12/26/17 04/10/18 History Fluticasone Propionate [Flonase 1 spray IN DAILY 12/26/17 04/10/18 History 50mcg nasal spray 16gm] Gabapentin [Gabapentin 300mg Cap] 300 mg PO TID 12/26/17 04/10/18 History Loratadine [Claritin] 10 mg PO DAILY 12/26/17 04/10/18 History Montelukast Sodium [Montelukast 10 mg PO HS 12/26/17 04/10/18 History 10mg Tab] Nitroglycerin [Nitrostat 0.4mg SL 0.4 mg SL [id number] PRN 12/26/17 04/10/18 Hi story Tablet] Pantoprazole Sodium [Pantoprazole 20 mg PO DAILY 12/26/17 04/10/18 History 20mg Tab] Quetiapine Fumarate 300 mg PO HS 12/26/17 04/10/18 History Sertraline HCl [Zoloft 100mg 100 mg PO DAILY 12/26/17 04/10/18 History tablet] Albuterol Sulfate [Albuterol HFA 1 - 2 puff INHALATION Q6HP PRN 03/16/18 04/11/18 History Inhaler] Budesonide/Formoterol Fumarate 2 puffs IH BID 03/16/18 04/10/18 History [Symbicort 160-4.5 Mcg Inhaler] Ergocalciferol (Vitamin D2) 100,000 unit PO WEEKLY 03/16/18 04/10/18 History [Vitamin D2] Folic Acid [Folic Acid 1mg tablet] 1 mg PO DAILY 03/16/18 04/10/18 History Furosemide [Furosemide 20mg Tab] 20 mg PO DAILY 03/16/18 04/10/18 History Insulin Aspart [Novolog] 0 unit SQ DAILY 03/16/18 04/10/18 History Meclizine HCl [Antivert 25mg 25 mg PO TIDP PRN 03/16/18 04/10/18 History tablet] Potassium Chloride [Pot Chlor 10 10 meq PO DAILY 03/16/18 04/10/18 History mEq Tab] guaiFENesin [Mucus Relief] 1 tab PO Q4HP PRN 03/16/18 04/10/18 History Amlodipine Besylate 10 mg PO DAILY 04/10/18 04/10/18 History Atorvastatin Calcium [Atorvastatin 40 mg PO HS 04/11/18 04/11/18 History 40mg Tab] levoFLOXacin [Levaquin 500mg 500 mg PO DAILY #7 tab 04/13/18 Rx tab] predniSONE [Deltasone 20mg 20 mg PO BID 7 Days #14 tab 04/13/18 Rx tablet] Prescriptions/Medication Reconciliation: New levoFLOXacin [Levaquin 500mg tab] 500 mg PO DAILY #7 tab predniSONE [Deltasone 20mg tablet] 20 mg PO BID 7 Days #14 tab Continue Divalproex Sodium 250 mg PO TID Pantoprazole Sodium [Pantoprazole 20mg Tab] 20 mg PO DAILY Loratadine [Claritin] 10 mg PO DAILY Aspirin [Aspir-Low] 81 mg PO DAILY Ferrous Sulfate 325 mg PO TID Buspirone HCl 15 mg PO TID Gabapentin [Gabapentin 300mg Cap] 300 mg PO TID Fluticasone Propionate [Flonase 50mcg nasal spray 16gm] 1 spray IN DAILY Quetiapine Fumarate 300 mg PO HS Montelukast Sodium [Montelukast 10mg Tab] 10 mg PO HS guaiFENesin [Mucus Relief] 1 tab PO Q4HP PRN PRN Reason: Cough Budesonide/Formoterol Fumarate [Symbicort 160-4.5 Mcg Inhaler] 2 puffs IH BID Potassium Chloride [Pot Chlor 10 mEq Tab] 10 meq PO DAILY Furosemide [Furosemide 20mg Tab] 20 mg PO DAILY Meclizine HCl [Antivert 25mg tablet] 25 mg PO TIDP PRN PRN Reason: Dizziness Sertraline HCl [Zoloft 100mg tablet] 100 mg PO DAILY Nitroglycerin [Nitrostat 0.4mg SL Tablet] 0.4 mg SL [id number] PRN PRN Reason: Chest Pain Cyclobenzaprine HCl [Cyclobenzaprine 5mg Tab] 5 mg PO BIDP PRN PRN Reason: MUSCLE SPASMS Insulin Aspart [Novolog] 0 unit SQ DAILY Folic Acid [Folic Acid 1mg tablet] 1 mg PO DAILY Albuterol Sulfate [Albuterol HFA Inhaler] 1 - 2 puff INHALATION Q6HP PRN PRN Reason: SHORTNESS OF AIR Ergocalciferol (Vitamin D2) [Vitamin D2] 100,000 unit PO WEEKLY Amlodipine Besylate 10 mg PO DAILY Atorvastatin Calcium [Atorvastatin 40mg Tab] 40 mg PO HS
[2018-04-13 08:27] LABS: Lymphocytes % 3 % (10-50); Monocytes % 1 % (2-9); Neutrophils % 95 % (42-76); RBC Morphology Normal; Total Cells Counted 100
== END 2018-04-13 11:51 | disposition home or self-care (01) | DRG 194 ==
LOC: ER 15:39 → 2ND 19:10
PROVIDERS: ADMIT Internal Medicine Adolescent Medicine; ATTEND Internal Medicine Adolescent Medicine
CPT/HCPCS: 36415; 70490; 71010; 71045; 73060; 80048; 80053; 80202; 82962; 83605; 83880; 84484; 85007; 85025; 87040; 87070; 87205; 93005; 94640; 94761; 96365; 96372; 96374; 96375; 99284; J1956; J3370